=== PATIENT | male | born 1965 | race Caucasian/White ===

== ENCOUNTER 2022-03-12 11:09 | Emergency (ER) | payer SELFPAY ==
--- NOTE | 2022-03-12 11:42 | RAD REPORT ---
EXAM DESCRIPTION: RAD - Chest Single View - 03/12/2022 11:35 am CLINICAL HISTORY: CHEST PAIN COMPARISON: No comparisons FINDINGS: Lines: None. Lungs: No evidence of edema or pneumonia. Nonspecific basilar interstitial markings. Pleural: No significant pleural effusions or pneumothorax. Cardiac: Mild enlarged cardiac silhouette. Bones: No acute fractures. Other: IMPRESSION: No acute cardiopulmonary disease.
[2022-03-12 12:11] LABS: Absolute Lymphocytes (CBC) 1.8 K/uL (0.7-4.9); Hematocrit 45.2 % (39.6-49.0); Lymphocytes % 31.6 % (15.3-44.8); MCV 100.8 fL (80-100); MPV 9.2 fL (7.6-11.3); RBC Red Blood Cell Count 4.48 M/uL (4.33-5.43)
[2022-03-12] MEDS ORDERED: MORPHINE 4 MG/ML SYR ONE (12:34)
[2022-03-12] MEDS ORDERED: ONDANSETRON 4 MG/2 ML VIAL ONE (12:34)
[2022-03-12 13:15] LABS: Troponin High Sensitivity 9.2 pg/mL (<58.9)
--- NOTE | 2022-03-12 14:02 | RAD REPORT ---
EXAM DESCRIPTION: CT - Chest For Pe Angio - 03/12/2022 1:52 pm CLINICAL HISTORY: Chest pain COMPARISON: None. TECHNIQUE: Dynamically enhanced axial 3 mm thick images of the chest were obtained during administra tion of <100> mL Isovue 370 IV contrast. Coronal and oblique reconstruction images were generated and reviewed. Exam utilizes a protocol for optimal evaluation of pulmonary arterial tree. Maximum intensity projections 3D imaging was utilized All CT scans are performed using dose optimization technique as appropriate and may include automated exposure control or mA/KV adjustment according to patient size. FINDINGS: A pulmonary embolus is not seen. A thoracic aortic aneurysm is not noted. A pleural effusion is not seen. A pericardial effusion is not seen. A lung consolidation is not present. IMPRESSION: Negative for a pulmonary embolism.
[2022-03-12] MEDS ORDERED: NA CHLORIDE 0.9% 1,000 ML ONE (15:01)
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
[2022-03-12 17:20] VITALS: O2SAT 98
[2022-03-12 17:27] VITALS: BP 138/86
[2022-03-12 17:28] VITALS: TEMP 97.8
--- NOTE | 2022-03-16 08:06 | EKG ---
Test Date: 2022-03-12 Test Time: 11:28:39 Revenue Accounting Manager: JOSH MEASUREMENT RESULTS: Intervals: Rate: 112 [place]: QRSD: 108 QT: 352 QTc: 480 [place]: P: DE: QRS: -59 T: -38 INTERPRETIVE STATEMENTS: Atrial fibrillation with rapid ventricular response with premature ventricular or aberrantly conducted complexes Left anterior fascicular block Cannot rule out Anterior infarct, age undetermined Abnormal ECG No previous ECG available for comparison Electronically Signed On 03-16-22 07:56:34 CDT by Robin Aguayo
== END 2022-03-12 16:53 | disposition home or self-care (01) ==
LOC: ER 11:09
DX: R07.89 Other chest pain (principal); M25.511 Pain in right shoulder; E11.9 Type 2 diabetes mellitus without complications; I48.91 Unspecified atrial fibrillation; Z79.01 Long term (current) use of anticoagulants
CPT/HCPCS: 36415; 71045; 71275; 80048; 84484; 85025; 93005; 96361; 96374; 96375; 99285; J2405; J7030; Q9967

== ENCOUNTER 2025-01-30 09:03 | Emergency (ER) | payer BC, SELFPAY ==
--- OUTSIDE RECORDS SUMMARY | 2025-01-30 09:10 | XMS REPORT | Continuity of Care Document ---
Author Name Unknown Address [address] [facility] [address] [place] [address] Organization [facility] Address [address] [facility] [address] [place] [address] Care Team Providers Care Jackscrew Worker Name Role Phone Darcy Wilde Primary Care Physician Marc Singletary Attending Clinician Unavailable Dominic Mello Attending Clinician Unavailable Jovan Conde Attending Clinician Unavailable Marc Singletary Admitting Clinician Unavailable Payers Payer Name Policy Type Policy Number Effective Date Expirati on Date Source Allergies, Adverse Reactions, Alerts Allergy Name Allergy Type Status Severity Reaction(s) Onset Date Inactive Date Treating Clinician Comments Source No Known Allergie s DA Active U 03-05 00:00: 00 [facility] Family History Family Member Diagnosis Comments Start Date Stop Date Sour e Father Family Congenital Heart Disease? No [facility] Father Family Myocardial Infarction? Yes [facility] Father Family Stroke? No [facility] Father Family Diabetes? No [facility] Father Family Colorectal Cancer? No [facility] Father Family Breast Cancer ? No [facility] Father Family Coronary Shari ry Disease? Yes [facility] Mother Family Breast Cancer ? No [facility] Mother Family Coronary Shari ry Disease? No [facility] Mother Family Congenital Heart Disease? No [facility] Mother Family Myocardial Infarction? No [facility] Mother Family Stroke? No [facility] Mother Family Diabetes? No [facility] Family Colorectal Cancer? No [facility] Social History Social Habit Start Date Stop Date Quantity Comments Source Sex Ass[birth year] At 1965 00:00:00 1965 00:00:00 Male [facility] Smoking Status Start Date Stop Date Source Unknown if ever smoked [facility] Medications Ordered Medication Name Filled Medication Name Start Date Stop Date Current Medication? Ordering Clinician Indication Dosage Frequency Signature (SIG) Comments Components Source furosemide 80 mg tablet 5-07 00:00: 00 Yes mg [facility] atorvastati n 10 mg tablet -15 00:00: 00 Yes 1mg [facility] potassium chloride ER 20 mEq tablet,exte nded release -15 00:00: 00 Yes 2mEq [facility] carvedilol 6.25 mg tablet 4-10 00:00: 00 Yes mg [facility] spironolact one 25 mg tablet 4-10 00:00: 00 Yes mg [facility] furosemide 80 mg tablet 4-10 00:00: 00 Yes mg [facility] glimepiride 4 mg tablet 4-10 00:00: 00 Yes mg [facility] lisinopril 5 mg tablet 4-10 00:00: 00 Yes mg [facility] carvedilol 6.25 mg tablet 2-05 00:00: 00 Yes mg [facility] spironolact one 25 mg tablet 2-05 00:00: 00 Yes mg [facility] furosemide 80 mg tablet 1-02 00:00: 00 Yes mg [facility] lisinopril 5 mg tablet 1-02 00:00: 00 Yes mg [facility] glimepiride 4 mg tablet 2023-09 1-12 00:00: 00 Yes mg [facility] Dose Unknown 7- 00:00: 00 Yes [facility] Dose Unknown 03-12 00:00: 00 Yes [facility] Acetaminoph en (Tylenol Extra Strength) 500 MG Tab 03-08 15:58: 31 No 1000MG Every 6 Hours [facility] Acetaminoph en (Tylenol Extra Strength) 500 MG Tab 03-08 15:58: 31 No 1000MG Every 6 Hours [facility] ([place] Januvia 25 mg tablet 2-21 00:00: 00 Yes 1mg [facility] metformin 500 mg tablet 2-19 00:00: 00 Yes 1mg [facility] metformin 500 mg tablet 2-12 00:00: 00 Yes 1mg [facility] Vital Signs Vital Name Observation Time Observation Value Gerri richardson WEIGHT 2022-03-06 00:03:00 108.12319 kg HEIGHT 2022-03-06 00:03:00 185.42 cm Body Temperature 2022-03-09 07:55:00 97.8 [degF] [facility] ([place]) Heart Rate 2022-03-09 07:55:00 93 /min [facility] ([place]) Respiratory rate 2022-03-09 07:55:00 22 /min [facility] ([place]) Oxygen saturation by Pulse oximetry 2022-03-09 07:55:00 93 /min [facility] [place] [place] ([place]) BP Systolic 2022-03-09 07:55:00 165 mm[Hg] [facility] ([place]) BP Diastolic 2022-03-09 07:55:00 117 mm[Hg] [facility] ([place] Height 2022-03-06 00:03:00 185.42 cm [facility] ([place]) Weight 2022-03-06 00:03:00 108.77 kg [facility] ([place]) BMI (Body Mass Index) 2022-03-06 00:03:00 31.6 kg/m2 [facility] ([place]) WEIGHT 2022-03-06 00:03:00 108.17605 kg HEIGHT 2022-03-06 00:03:00 185.42 cm Body Temperature 2022-03-09 07:55:00 97.8 [degF] [facility] Heart Rate 2022-03-09 07:55:00 93 /min [facility] Respiratory rate 2022-03-09 07:55:00 22 /min [facility] Oxygen saturation by Pulse oximetry 2022-03-09 07:55:00 93 /min [facility] BP Systolic 2022-03-09 07:55:00 165 mm[Hg] [facility] BP Diastolic 2022-03-09 07:55:00 117 mm[Hg] [facility] Height 2022-03-06 00:03:[address] [facility] Weight 2022-03-06 00:03:[address] [facility] BMI (Body Mass Index) 2022-03-06 00:03:00 31.6 kg/m2 [facility] BP Systolic 2025-01-16 16:21:00 94 mm[Hg] Step hen F [facility] BP Diastolic 2025-01-16 16:21:00 60 mm[Hg] Silv[facility] phen F [facility] Weight Measured 2025-01-16 16:21:00 257.00 pounds [facility]am[facility] [place] Height Measured 2025-01-16 16:21:00 73.00 inches Familia F [facility] Body Temperature 2025-01-16 16:21:00 97.90 degrees Familia F [facility] Heart Rate 2025-01-16 16:21:00 96.00 /min Nancy en F [facility] Respiratory Rate 2025-01-16 16:21:00 18.00 /min Familia F [facility] Respiratory Rate 2024-12-20 08:39:00 19.00 /min Familia F [facility] BP Systolic 2024-12-20 08:39:00 110 mm[Hg] Step hen F [facility] BP Diastolic 2024-12-20 08:39:00 77 mm[Hg] [place] phen F [facility] Weight Measured 2024-12-20 08:39:00 257.00 pounds Familia F [facility] Height Measured 2024-12-20 08:39:00 73.00 inches Familia F [facility] Body Temperature 2024-12-20 08:39:00 97.20 degrees Familia F [facility] Heart Rate 2024-12-20 08:39:00 72.00 /min Nancy en F [facility] BP Systolic 2022-03-12 09:34:00 124 mm[Hg] Step hen F [facility] BP Diastolic 2022-03-12 09:34:00 89 mm[Hg] [place] phen F [facility] Weight Measured 2022-03-12 09:34:00 229.80 pounds Familia F [facility] Height Measured 2022-03-12 09:34:00 73.00 inches Familia F [facility] Body Temperature 2022-03-12 09:34:00 98.40 degrees Familia F [facility] Heart Rate 2022-03-12 09:34:00 98.00 /min Nancy en F [facility] Respiratory Rate 2022-03-12 09:34:00 Familia F [facility] BP Systolic 2021-11-02 15:11:00 Step hen F [facility] BP Diastolic 2021-11-02 15:11:00 [place] phen F [facility] Weight Measured 2021-11-02 15:11:00 240.00 pounds Familia F [facility] Height Measured 2021-11-02 15:11:00 73.00 inches Familia F [facility] Body Temperature 2021-11-02 15:11:00 Familia F [facility] Heart Rate 2021-11-02 15:11:00 Nancy en F [facility] Respiratory Rate 2021-11-02 15:11:00 Familia F [facility] BP Systolic 2021-10-24 10:43:00 138 mm[Hg] Step hen F [facility] BP Diastolic 2021-10-24 10:43:00 98 mm[Hg] [place] phen F [facility] Weight Measured 2021-10-24 10:43:00 240.20 pounds Familia F [facility] Height Measured 2021-10-24 10:43:00 73.00 inches Familia F [facility] Body Temperature 2021-10-24 10:43:00 98.30 degrees Familia F [facility] Heart Rate 2021-10-24 10:43:00 94.00 /min Nancy en F [facility] Respiratory Rate 2021-10-24 10:43:00 16.00 /min Familia F [facility] Procedures Procedure Date / Time Performed Performing Clinicia n Source XR Chest Pa & Lat STANDARD 2022-03-08 09:13:00 [facility] XR Chest Pa & Lat STANDARD 2022-03-08 09:13:00 [facility] ([place]) US Venous Doppler Rt Unilat 2022-03-06 18:59:00 [facility] 18[facility]59:00 [facility] ([place]) XR Chest 1 View Portable 2022-03-06 09:00:00 [facility] XR Chest 1 View Portable 2022-03-06 09:00:00 [facility] ([place]) CTA Angio Head W WO Con 2022-03-06 00:49:00 [facility] CTA Angio Neck W WO Con 2022-03-06 00:49:00 [facility] CTA Angio Head W WO Con 2022-03-06 00:49:00 [facility] ([place]) CTA Angio Neck W WO Con 2022-03-06 00:49:00 [facility] ([place]) CT Chest Abd Pelvis W Con 2022-03-05 18:55:[address] [facility] [address] Chest Abd Pelvis W Con 2022-03-05 18:55:00 [facility] ([place]) CT Upper Ext Rt WO Con 2022-03-05 18:01:[address] [facility] [address] Upper Ext Rt WO Con 2022-03-05 18:01:00 [facility] ([place]) CT Cervical Spine WO Con 2022-03-05 17:58:[address] [facility] [address] Brain WO Con 2022-03-05 17:58:00 [facility] CT Cervical Spine WO Con 2022-03-05 17:58:00 [facility] ([place]) CT Brain WO Con 2022-03-05 17:58:00 [facility] ([place]) EKG 12 Lead in Emergency Room 2022-03-05 17:12:00 [facility] EKG 12 Lead in Emergency Room 2022-03-05 17:12:00 [facility] ([place]) XR Chest 1 View Portable 2022-03-05 17:07:00 [facility] XR Chest 1 View Portable 2022-03-05 17:07:00 [facility] ([place]) XR Shoulder Rt 3 View STANDARD 2022-03-05 17:04:00 [facility] XR Shoulder Rt 3 View STANDARD 2022-03-05 17:04:00 [facility] ([place]) Encounters Start Date/Time End Date/Time Encounter Type Admission Type Attending [facility] Care Department Encounter ID Source 2022-03-05 23:23:[address] [facility] [id number] [facility] 2025-01-16 16:12:38 2025-01-16 16:12:[address] [facility] [id number] [facility] 2025-01-16 00:00:00 2025-01-16 00:00:00 Outpatient Visit SFA [id number] [facility] 2024-12-24 08:34:15 2024-12-24 08:34:[address] [facility] [id number] [facility] 2024-12-20 08:31:53 2024-12-20 08:31:[address] [facility] [id number] [facility] 2024-12-20 00:00:00 2024-12-20 00:00:00 Outpatient Visit SFA [id number] Familia Castillo [facility] 2022-03-06 00:43:00 2022-03-09 12:35:00 Discharged Inpatient [id number] [facility] Ctr-2SW/OBS ERVATION [id number] [facility] ([place] 2022-03-06 00:43:00 2022-03-09 12:35:00 Inpatient U Dominic Mello [facility] [id number] [facility] 2022-03-06 00:43:00 2022-03-09 12:35:00 Discharged Inpatient [id number] [facility] Ctr-2SW/OBS ERVATION [id number] [facility] 2022-03-05 16:54:00 2022-03-05 22:33:00 Emergency ER Jovan Conde [facility] [id number] [facility] 2022-03-05 16:54:00 2022-03-05 22:33:00 Departed Emergency [id number] [facility] [place] [id number] [facility] 2022-03-05 16:54:00 2022-03-05 16:54:00 Registered Emergency [id number] [facility] [place] [id number] [facility] ([place] Results Test Description Test Time Test Comments Results Result Co mments Source Fam[facility] HeadHEMOGLOBIN [id number] 00:00:00* Test Item Value Reference Range Interpretation Comme nts HEMOGLOBIN A1c (test code = 4548-4) 5.8 % [facility]am[facility] HeadLIPID [id number] 00:00:00* Test Item Value Reference Range Interpretation Comme nts CHOLESTEROL, TOTAL (test cod e = 2093-3) 151 mg/dL HDL CHOLESTEROL (test code = 2085-9) 28 mg/dL TRIGLYCERIDES (test code = 2571-8) 86 mg/dL LDL-CHOLESTEROL (test code = 32294-1) 105 mg/dL(calc) CHOL/HDLC RATIO (test code = 9830-1) 5.4 (calc) NON HDL CHOLESTEROL (test code = 31285-0) 123 mg/dL(calc) [facility] [id number] 06:06:00* Test Item Value Reference Range Interpretation Comme [facility] Bedside Glucose Testing (roly t code = ACU) 142 mg/dL 70-100 H Capillary blood glucose measurement by glucometer (mass/volume)2022-03-09 05:59:00* Test Item Value Reference Range Interpretation Comme [facility] Bedside Glucose (test code = 31226-7) 142 mg/dL 70-100 [facility] blood glucose measurement by glucometer (mass/volume)2022-03-09 05:59:00* Test Item Value Reference Range Interpretation Comme [facility] Bedside Glucose (test code = 65805-7) 142 mg/dL 70-100 [facility] ([place])Chemistry - BNP, HgbA1c, [id number] 04:42:00* Test Item Value Reference Range Interpretation Comme [facility] Chemistry - BNP, HgbA1c, PTH i (test code = RKVZ7VS) 9.0 % 4.0-6.0 H [id number] 04:40:00* Test Item Value Reference Range Interpretation Comme [facility] Hematology (test code = WBCT) 4.7 thou/uL 4.8-10.8 L Hematology (test code = RBCT) 4.02 mill/uL 4.70-6.10 L Hematology (test code = HGBT) 14.1 g/dL 14.0-18.0 N Hematology (test code = HCTT) 42.9 % 42.0-52.0 N Hematology (test code = MCV) 107.0 fL 78.0-98.0 H Hematology (test code = MCH) 35.1 pg 27.0-31.0 H Hematology (test code = MCHC) 32.9 g/dL 32.0-36.0 N Hematology (test code = RDW) 12.5 % 11.5-14.5 N Hematology (test code = PLTT) 87 thou/uL 130-400 L Hematology (test code = MPV) 9.4 fL 7.4-10.4 N Hematology (test code = %NEUT) 46.8 % 42.0-75.0 N Hematology (test code = %LYMPH) 38.7 % 21.0-51.0 N Hematology (test code = %MONO) 10.2 % 0.0-10.0 H Hematology (test code = %EOS) 3.3 % 0.0-10.0 N Hematology (test code = %BASO) 1.0 % 0.0-1.0 N Hematology (test code = NEUT#) 2.2 thou/uL 1.40-6.50 N Hematology (test code = LYMPH#) 1.8 thou/uL 1.20-3.40 N Hematology (test code = MONO#) 0.5 thou/uL 0.11-0.59 N Hematology (test code = EOS#) 0.2 thou/uL 0.0-0.7 N Hematology (test code = BASO#) 0.0 thou/uL 0.0-0.2 N Hemoglobin A1c [id number] 04:24:00* Test Item Value Reference Range Interpretation Comme [facility] Hemoglobin A1c (test code = 4548-4) 9.0 % 4.0-6.0 [facility] [#/volume[facility] in Blood by Automated count 2022-03-09 04:24:00* Test Item Value Reference Range Interpretation Comme [facility] White Blood Count (test code = 6690-2) 4.7 thou/uL 4.8-10.8 [facility] erythrocytes automated count (number/volume) 2022-03-09 04:24:00* Test Item Value Reference Range Interpretation Comme [facility] Red Blood Count (test code = 789-8) 4.02 mill/uL 4.70-6.10 [facility] hemoglobin measurement (mass/volume)2022-03-09 04:24:00* Test Item Value Reference Range Interpretation Comme [facility] Hemoglobin (test code = 718-7) 14.1 g/dL 14.0-18.0 [facility] eryth[facility] mean corpuscular volume 2022-03-09 04:24:00* Test Item Value Reference Range Interpretation Comme [facility] Mean Corpuscular Volume (roly t code = 787-2) 107.0 fL 78.0-98.0 [facility] mean corpuscular hemoglobin (mass per erythrocyte)2022-03-09 04:24:00* Test Item Value Reference Range Interpretation Comme [facility] Mean Corpuscular Hemoglobin (test code = 785-6) 35.1 pg 27.0-31.0 [facility] mean corpuscular hemoglobin concentration measurement (mass/[id number] 04:24:00* Test Item Value Reference Range Interpretation Comme [facility] Mean Corpuscular Hemoglobin Concent (test code = 786-4) 32.9 g/dL 32.0-36.0 [facility] distribution width ratio 2022-03-09 04:24:00* Test Item Value Reference Range Interpretation Comme [facility] Red Cell Distribution Width (test code = 788-0) 12.5 % 11.5-14.5 [facility] platelet count (count/volume) 2022-03-09 04:24:00* Test Item Value Reference Range Interpretation Comme [facility] Platelet Count (test code = 777-3) 87 thou/uL 130-400 [facility] platelet mean [id number] 04:24:00* Test Item Value Reference Range Interpretation Comme [facility] Mean Platelet Volume (test c ode = 95698-6) 9.4 fL 7.4-10.4 [facility] neutrophils/100 [id number] 04:24:00* Test Item Value Reference Range Interpretation Comme [facility] Neutrophils % (test code = 770-8) 46.8 % 42.0-75.0 [facility] leukocytes in Blood by Automated count 2022-03-09 04:24:00* Test Item Value Reference Range Interpretation Comme [facility] Lymphocytes % (test code = 736-9) 38.7 % 21.0-51.0 [facility] monocytes/100 [id number] 04:24:00* Test Item Value Reference Range Interpretation Comme [facility] Monocytes % (test code = 5905-5) 10.2 % 0.0-10.0 [facility] eosinophils/100 [id number] 04:24:00* Test Item Value Reference Range Interpretation Comme [facility] Eosinophils % (test code = 713-8) 3.3 % 0.0-10.0 [facility] basophils/100 [id number] 04:24:00* Test Item Value Reference Range Interpretation Comme [facility] Basophils % (test code = 706-2) 1.0 % 0.0-1.0 [facility] neutrophils automated count (number/volume) 2022-03-09 04:24:00* Test Item Value Reference Range Interpretation Comme [facility] Neutrophils # (test code = 751-8) 2.2 thou/uL 1.40-6.50 [facility]ymph[facility] [#/volume] in Blood by Automated count 2022-03-09 04:24:00* Test Item Value Reference Range Interpretation Comme [facility] Lymphocytes # (test code = 731-0) 1.8 thou/uL 1.20-3.40 [facility] monocytes automated count (number/volume) 2022-03-09 04:24:00* Test Item Value Reference Range Interpretation Comme [facility] Monocytes # (test code = 742-7) 0.5 thou/uL 0.11-0.59 [facility] eosinophils automated count (count/volume) 2022-03-09 04:24:00* Test Item Value Reference Range Interpretation Comme [facility] Eosinophils # (test code = 711-2) 0.2 thou/uL 0.0-0.7 [facility] basophil count (count/volume) 2022-03-09 04:24:00* Test Item Value Reference Range Interpretation Comme [facility] Basophils # (test code = 704-7) 0.0 thou/uL 0.0-0.2 [facility]emoglobin A1c [id number] 04:24:00* Test Item Value Reference Range Interpretation Comme [facility] Hemoglobin A1c (test code = 4548-4) 9.0 % 4.0-6.0 [facility])Leukocytes [#/volume] in Blood by Automated [id number] 04:24:00* Test Item Value Reference Range Interpretation Comme nts White Blood Count (test code = 6690-2) 4.7 thou/uL 4.8-10.8 [facility])Blood erythrocytes automated count (number/volume)2022-03-09 04:24:00* Test Item Value Reference Range Interpretation Comme nts Red Blood Count (test code = 789-8) 4.02 mill/uL 4.70-6.10 [facility] ([place])Blood hemoglobin measurement (mass/volume) 2022-03-09 04:24:00* Test Item Value Reference Range Interpretation Comme nts Hemoglobin (test code = 718-7) 14.1 g/dL 14.0-18.0 [facility])Automated erythrocyte mean corpuscular volume 2022-03-09 04:24:00* Test Item Value Reference Range Interpretation Comme nts Mean Corpuscular Volume (roly t code = 787-2) 107.0 fL 78.0-98.0 [facility])Automated erythrocyte mean corpuscular hemoglobin (mass per erythrocyte)2022-03-09 04:24:00* Test Item Value Reference Range Interpretation Comme nts Mean Corpuscular Hemoglobin (test code = 785-6) 35.1 pg 27.0-31.0 [facility])Automated erythrocyte mean corpuscular hemoglobin concentration measurement (mass/[id number] 04:24:00* Test Item Value Reference Range Interpretation Comme nts Mean Corpuscular Hemoglobin Concent (test code = 786-4) 32.9 g/dL 32.0-36.0 [facility])Automated erythrocyte distribution width ratio 2022-03-09 04:24:00* Test Item Value Reference Range Interpretation Comme nts Red Cell Distribution Width (test code = 788-0) 12.5 % 11.5-14.5 [facility])Automated blood platelet count (count/volume) 2022-03-09 04:24:00* Test Item Value Reference Range Interpretation Comme nts Platelet Count (test code = 777-3) 87 thou/uL 130-400 [facility])Automated blood platelet mean [id number] 04:24:00* Test Item Value Reference Range Interpretation Comme nts Mean Platelet Volume (test c ode = 64439-7) 9.4 fL 7.4-10.4 [facility])Automated blood neutrophils/100 leukocytes 2022-03-09 04:24:00* Test Item Value Reference Range Interpretation Comme nts Neutrophils % (test code = 770-8) 46.8 % 42.0-75.0 [facility])Lymphocytes/100 leukocytes in Blood by Automated [id number] 04:24:00* Test Item Value Reference Range Interpretation Comme nts Lymphocytes % (test code = 736-9) 38.7 % 21.0-51.0 [facility] ([place])Automated blood monocytes/100 leukocytes 2022-03-09 04:24:00* Test Item Value Reference Range Interpretation Comme nts Monocytes % (test code = 5905-5) 10.2 % 0.0-10.0 [facility])Automated blood eosinophils/100 leukocytes 2022-03-09 04:24:00* Test Item Value Reference Range Interpretation Comme nts Eosinophils % (test code = 713-8) 3.3 % 0.0-10.0 [facility] ([place])Automated blood basophils/100 leukocytes 2022-03-09 04:24:00* Test Item Value Reference Range Interpretation Comme nts Basophils % (test code = 706-2) 1.0 % 0.0-1.0 [facility] ([place])Blood neutrophils automated count (number/volume)2022-03-09 04:24:00* Test Item Value Reference Range Interpretation Comme nts Neutrophils # (test code = 751-8) 2.2 thou/uL 1.40-6.50 [facility] ([place])Lymphocytes [#/volume] in Blood by Automated [id number] 04:24:00* Test Item Value Reference Range Interpretation Comme [facility] Lymphocytes # (test code = 731-0) 1.8 thou/uL 1.20-3.40 [facility])Blood monocytes automated count (number/volume)2022-03-09 04:24:00* Test Item Value Reference Range Interpretation Comme nts Monocytes # (test code = 742-7) 0.5 thou/uL 0.11-0.59 [facility])Blood eosinophils automated count (count/volume)2022-03-09 04:24:00* Test Item Value Reference Range Interpretation Comme nts Eosinophils # (test code = 711-2) 0.2 thou/uL 0.0-0.7 [facility])Automated blood basophil count (count/volume) 2022-03-09 04:24:00* Test Item Value Reference Range Interpretation Comme nts Basophils # (test code = 704-7) 0.0 thou/uL 0.0-0.2 [facility])Bedside Glucose [id number] 21:00:00* Test Item Value Reference Range Interpretation Comme nts Bedside Glucose Testing (roly t code = ACU) 212 mg/dL 70-100 H Bedside Glucose [id number] 16:47:00* Test Item Value Reference Range Interpretation Comme nts Bedside Glucose Testing (roly t code = ACU) 165 mg/dL 70-100 H Bedside Glucose [id number] 11:11:00* Test Item Value Reference Range Interpretation Comme nts Bedside Glucose Testing (roly t code = ACU) 179 mg/dL 70-100 H [id number] 05:31:00* Test Item Value Reference Range Interpretation Comme nts Chemistry (test code = NA-T) 134 mmol/L 136-145 L Chemistry (test code = K-T) 3.6 mmol/L 3.5-5.1 N Chemistry (test code = CL) 100 mmol/L 98-107 N Chemistry (test code = CO2) 26 mmol/L 22-29 N Chemistry (test code = ANGP) 12 mmol/L 10-20 N Chemistry (test code = BUN) 17 mg/dL 8.4-25.7 N Chemistry (test code = CREATT) 0.65 mg/dL 0.7-1.3 L Chemistry (test code = EGFRMDRD) Greater than 90 Reference Range for Estimated GFR: Greater than 90 mL/min/1.73 m2NOTE:The MDRD equation has not been validated for use with theelderly (over 70 years of age), women, patientswith serious comorbid condition or persons with extremes ofbody size, muscle mass, or nutritional status.Reported eGFR is based on the IDMS-Traceable MDRD Studyequation. Effecti ve February The laboratory will implement the new CKD-EPI 2020 equation.In the interim, to calculate eGFR based on the CKD-EPI:quation , go to CKD-EPI Creatinine Equation (2020) [employer] Kid[employer] Foundation.https://w ww.kidney.org/conten t/vga-guo-pezwmogccw -equation-2020 Chemistry (test code = GLU-T) 139 mg/dL 70-105 H Chemistry (test code = CA) 8.3 mg/dL 7.8-10.44 N Remqnfojj6348-17-57 05:31:00* Test Item Value Reference Range Interpretation Comme nts Chemistry (test code = PHOS-T) 3.4 mg/dL 2.3-4.7 N Ctqliewsu3162-21-27 05:31:00* Test Item Value Reference Range Interpretation Comme nts Chemistry (test code = MG-T) 1.7 mg/dL 1.6-2.6 N Gzjjibizgm9625-82-25 05:09:00* Test Item Value Reference Range Interpretation Comme nts Hematology (test code = WBCT) 4.8 thou/uL 4.8-10.8 N Hematology (test code = RBCT) 3.98 mill/uL 4.70-6.10 L Hematology (test code = HGBT) 13.8 g/dL 14.0-18.0 L Hematology (test code = HCTT) 42.6 % 42.0-52.0 N Hematology (test code = MCV) 107.0 fL 78.0-98.0 H Hematology (test code = MCH) 34.7 pg 27.0-31.0 H Hematology (test code = MCHC) 32.4 g/dL 32.0-36.0 N Hematology (test code = RDW) 12.7 % 11.5-14.5 N Hematology (test code = PLTT) 83 thou/uL 130-400 L Hematology (test code = MPV) 9.9 fL 7.4-10.4 N Hematology (test code = %NEUT) 45.0 % 42.0-75.0 N Hematology (test code = %LYMPH) 38.5 % 21.0-51.0 N Hematology (test code = %MONO) 11.1 % 0.0-10.0 H Hematology (test code = %EOS) 4.2 % 0.0-10.0 N Hematology (test code = %BASO) 1.2 % 0.0-1.0 H Hematology (test code = NEUT#) 2.1 thou/uL 1.40-6.50 N Hematology (test code = LYMPH#) 1.8 thou/uL 1.20-3.40 N Hematology (test code = MONO#) 0.5 thou/uL 0.11-0.59 N Hematology (test code = EOS#) 0.2 thou/uL 0.0-0.7 N Hematology (test code = BASO#) 0.1 thou/uL 0.0-0.2 N Serum or plasma phosphate measurement (mass/volume)2022-03-08 04:33:00* Test Item Value Reference Range Interpretation Comme [facility] Phosphorus Level (test code = 2777-1) 3.4 mg/dL 2.3-4.7 [facility] or plasma magnesium measurement (mass/volume) 2022-03-08 04:33:00* Test Item Value Reference Range Interpretation Comme nts Magnesium Level (test code = 58693-5) 1.7 mg/dL 1.6-2.6 [facility] or plasma sodium measurement (moles/volume) 2022-03-08 04:33:00* Test Item Value Reference Range Interpretation Comme nts Sodium Level (test code = 2951-2) 134 mmol/L 136-145 [facility] or plasma potassium measurement (moles/volume) 2022-03-08 04:33:00* Test Item Value Reference Range Interpretation Comme [facility] Potassium Level (test code = 2823-3) 3.6 mmol/L 3.5-5.1 [facility] or plasma chloride measurement (moles/volume) 2022-03-08 04:33:00* Test Item Value Reference Range Interpretation Comme [facility] Chloride Level (test code = 2075-0) 100 mmol/L 98-107 [facility] or plasma carbon dioxide, total measurement (moles/volume)2022-03-08 04:33:00* Test Item Value Reference Range Interpretation Comme [facility] Carbon Dioxide Level (test c ode = 2027-9) 26 mmol/L 22-29 [facility] or plasma anion xtl6110-88-13 04:33:00* Test Item Value Reference Range Interpretation Comme [facility] Anion Gap (test code = 13438-6) 12 mmol/L 10-20 [facility] or plasma urea nitrogen measurement (mass/volume)2022-03-08 04:33:00* Test Item Value Reference Range Interpretation Comme [facility] Blood Urea Nitrogen (test co de = 3094-0) 17 mg/dL 8.4-25.7 [facility] or plasma creatinine measurement (mass/volume) 2022-03-08 04:33:00* Test Item Value Reference Range Interpretation Comme [facility] Creatinine (test code = 2160-0) 0.65 mg/dL 0.7-1.3 [facility]ucose [Mass/volume] in Serum or Ouxjnq2792-60-02 04:33:00* Test Item Value Reference Range Interpretation Comme [facility] Glucose Level (test code = 2345-7) 139 mg/dL 70-105 [facility] or plasma calcium measurement (mass/volume) 2022-03-08 04:33:00* Test Item Value Reference Range Interpretation Comme [facility] Calcium Level (test code = 04036-1) 8.3 mg/dL 7.8-10.44 [facility] or plasma sodium measurement (moles/volume) 2022-03-08 04:33:00* Test Item Value Reference Range Interpretation Comme [facility] Sodium Level (test code = 2951-2) 134 mmol/L 136-145 [facility])Serum or plasma potassium measurement (moles/volume)2022-03-08 04:33:00* Test Item Value Reference Range Interpretation Comme [facility] Potassium Level (test code = 2823-3) 3.6 mmol/L 3.5-5.1 [facility])Serum or plasma chloride measurement (moles/volume)2022-03-08 04:33:00* Test Item Value Reference Range Interpretation Comme [facility] Chloride Level (test code = 2075-0) 100 mmol/L 98-107 [facility])Serum or plasma carbon dioxide, total measurement (moles/volume)2022-03-08 04:33:00* Test Item Value Reference Range Interpretation Comme [facility] Carbon Dioxide Level (test c ode = 2027-9) 26 mmol/L 22-29 [facility])Serum or plasma anion [id number] 04:33:00* Test Item Value Reference Range Interpretation Comme [facility] Anion Gap (test code = 65249-8) 12 mmol/L 10-20 [facility])Serum or plasma urea nitrogen measurement (mass/volume)2022-03-08 04:33:00* Test Item Value Reference Range Interpretation Comme [facility] Blood Urea Nitrogen (test co de = 3094-0) 17 mg/dL 8.4-25.7 [facility]Serum or plasma creatinine measurement (mass/volume)2022-03-08 04:33:00* Test Item Value Reference Range Interpretation Comme [facility] Creatinine (test code = 2160-0) 0.65 mg/dL 0.7-1.3 [facility])Glucose [Mass/volume] in Serum or Plasma 2022-03-08 04:33:00* Test Item Value Reference Range Interpretation Comme [facility] Glucose Level (test code = 2345-7) 139 mg/dL 70-105 [facility])Serum or plasma calcium measurement (mass/volume)2022-03-08 04:33:00* Test Item Value Reference Range Interpretation Comme [facility] Calcium Level (test code = 93963-1) 8.3 mg/dL 7.8-10.44 [facility])Serum or plasma phosphate measurement (mass/volume)2022-03-08 04:33:00* Test Item Value Reference Range Interpretation Comme [facility] Phosphorus Level (test code = 2777-1) 3.4 mg/dL 2.3-4.7 [facility])Serum or plasma magnesium measurement (mass/volume)2022-03-08 04:33:00* Test Item Value Reference Range Interpretation Comme [facility] Magnesium Level (test code = 22205-9) 1.7 mg/dL 1.6-2.6 [facility])Bedside Glucose Nuefklh7610-46-86 21:08:00* Test Item Value Reference Range Interpretation Comme [facility] Bedside Glucose Testing (roly t code = ACU) 144 mg/dL 70-100 H Bedside Glucose Pvtewqb1956-84-15 15:33:00* Test Item Value Reference Range Interpretation Comme [facility] Bedside Glucose Testing (roly t code = ACU) 212 mg/dL 70-100 H Bedside Glucose Eskzynx1247-74-53 10:52:00* Test Item Value Reference Range Interpretation Comme [facility] Bedside Glucose Testing (roly t code = ACU) 162 mg/dL 70-100 H Fdibtfikn0056-08-55 05:22:00* Test Item Value Reference Range Interpretation Comme [facility] Chemistry (test code = NA-T) 139 mmol/L 136-145 N Chemistry (test code = K-T) 3.8 mmol/L 3.5-5.1 N Chemistry (test code = CL) 103 mmol/L 98-107 N Chemistry (test code = CO2) 28 mmol/L 22-29 N Chemistry (test code = ANGP) 12 mmol/L 10-20 N Chemistry (test code = BUN) 18 mg/dL 8.4-25.7 N Chemistry (test code = CREATT) 0.67 mg/dL 0.7-1.3 L Chemistry (test code = EGFRMDRD) Greater than 90 Reference Range for Estimated GFR: Greater than 90 mL/min/1.73 m2NOTE:The MDRD equation has not been validated for use with theelderly (over 70 years of age), women, patientswith serious comorbid condition or persons with extremes ofbody size, muscle mass, or nutritional status.Reported eGFR is based on the IDMS-Traceable MDRD Studyequation. Effecti ve February The laboratory will implement the new CKD-EPI 2020 equation.In the interim, to calculate eGFR based on the CKD-EPI:quation , go to CKD-EPI Creatinine Equation (2020) [employer] Kid[employer] Foundation.https://w ww.[email or web address]/conten t/cpg-epw-dcilfvwtoi -equation-2020 Chemistry (test code = GLU-T) 185 mg/dL 70-105 H Chemistry (test code = CA) 8.4 mg/dL 7.8-10.44 N Fuocxvsao8294-30-30 05:22:00* Test Item Value Reference Range Interpretation Comme nts Chemistry (test code = PHOS-T) 2.9 mg/dL 2.3-4.7 N Nzjexzecfc4380-60-24 05:11:00* Test Item Value Reference Range Interpretation Comme nts Hematology (test code = WBCT) 4.2 thou/uL 4.8-10.8 L Hematology (test code = RBCT) 4.16 mill/uL 4.70-6.10 L Hematology (test code = HGBT) 14.3 g/dL 14.0-18.0 N Hematology (test code = HCTT) 44.7 % 42.0-52.0 N Hematology (test code = MCV) 108.0 fL 78.0-98.0 H Hematology (test code = MCH) 34.4 pg 27.0-31.0 H Hematology (test code = MCHC) 32.0 g/dL 32.0-36.0 N Hematology (test code = RDW) 12.9 % 11.5-14.5 N Hematology (test code = PLTT) 88 thou/uL 130-400 L Hematology (test code = MPV) 9.7 fL 7.4-10.4 N Hematology (test code = %NEUT) 47.8 % 42.0-75.0 N Hematology (test code = %LYMPH) 36.3 % 21.0-51.0 N Hematology (test code = %MONO) 11.3 % 0.0-10.0 H Hematology (test code = %EOS) 3.0 % 0.0-10.0 N Hematology (test code = %BASO) 1.6 % 0.0-1.0 H Hematology (test code = NEUT#) 2.0 thou/uL 1.40-6.50 N Hematology (test code = LYMPH#) 1.5 thou/uL 1.20-3.40 N Hematology (test code = MONO#) 0.5 thou/uL 0.11-0.59 N Hematology (test code = EOS#) 0.1 thou/uL 0.0-0.7 N Hematology (test code = BASO#) 0.1 thou/uL 0.0-0.2 N Manual blood segmented neutrophils/100 uobcuarbrw0376-53-41 04:38:00* Test Item Value Reference Range Interpretation Comme nts Neutrophils % (Manual) (test code = 769-0) Not Performed [facility] blood segmented neutrophils/100 leukocytes 2022-03-07 04:38:00* Test Item Value Reference Range Interpretation Comme nts Neutrophils % (Manual) (test code = 769-0) Not Performed [facility]Bedside Glucose Llyqddo6164-26-70 20:18:00* Test Item Value Reference Range Interpretation Comme nts Bedside Glucose Testing (roly t code = ACU) 241 mg/dL 70-100 H Bedside Glucose Txipdyo5018-58-91 11:34:00* Test Item Value Reference Range Interpretation Comme nts Bedside Glucose Testing (roly t code = ACU) 164 mg/dL 70-100 H Esriyafvh2618-48-80 10:54:00* Test Item Value Reference Range Interpretation Comme nts Chemistry (test code = TROPI-R) 0.010 ng/mL < 0.028 Reference Range 0.00 - 0.028 ng/mL Negative 0.029 - 0.29 ng/mL Indeterminate Greater or Equal to 0.3 ng/mL Strongly suggests [place] Mkvqdyzkg8287-08-53 05:45:00* Test Item Value Reference Range Interpretation Comme nts Chemistry (test code = NA-T) 138 mmol/L 136-145 N Chemistry (test code = K-T) 3.4 mmol/L 3.5-5.1 L Chemistry (test code = CL) 105 mmol/L 98-107 N Chemistry (test code = CO2) 23 mmol/L 22-29 N Chemistry (test code = ANGP) 13 mmol/L 10-20 N Chemistry (test code = BUN) 13 mg/dL 8.4-25.7 N Chemistry (test code = CREATT) 0.58 mg/dL 0.7-1.3 L Chemistry (test code = EGFRMDRD) Greater than 90 Reference Range for Estimated GFR: Greater than 90 mL/min/1.73 m2NOTE:The MDRD equation has not been validated for use with theelderly (over 70 years of age), women, patientswith serious comorbid condition or persons with extremes ofbody size, muscle mass, or nutritional status.Reported eGFR is based on the IDMS-Traceable MDRD Studyequation. Effecti ve February The laboratory will implement the new CKD-EPI 2020 equation.In the interim, to calculate eGFR based on the CKD-EPI:quation , go to CKD-EPI Creatinine Equation (2020) National Kid[employer] Foundation.https://w ww.kidney.org/conten t/sik-egf-stjtgolpaf -equation-2020 Chemistry (test code = GLU-T) 182 mg/dL 70-105 H Chemistry (test code = CA) 8.3 mg/dL 7.8-10.44 N Wruhlxgua0804-08-37 05:45:00* Test Item Value Reference Range Interpretation Comme nts Chemistry (test code = MG-T) 1.5 mg/dL 1.6-2.6 L Nsvwvlsoqx7308-93-12 05:43:00* Test Item Value Reference Range Interpretation Comme nts Hematology (test code = WBCT) 5.1 thou/uL 4.8-10.8 N Hematology (test code = RBCT) 3.89 mill/uL 4.70-6.10 L Hematology (test code = HGBT) 13.6 g/dL 14.0-18.0 L Hematology (test code = HCTT) 40.7 % 42.0-52.0 L Hematology (test code = MCV) 105.0 fL 78.0-98.0 H Hematology (test code = MCH) 35.1 pg 27.0-31.0 H Hematology (test code = MCHC) 33.5 g/dL 32.0-36.0 N Hematology (test code = RDW) 12.8 % 11.5-14.5 N Hematology (test code = PLTT) 95 thou/uL 130-400 L Hematology (test code = MPV) 9.2 fL 7.4-10.4 N Hematology (test code = %NEUT) 48.9 % 42.0-75.0 N Hematology (test code = %LYMPH) 35.1 % 21.0-51.0 N Hematology (test code = %MONO) 14.0 % 0.0-10.0 H Hematology (test code = %EOS) 1.0 % 0.0-10.0 N Hematology (test code = %BASO) 0.9 % 0.0-1.0 N Hematology (test code = NEUT#) 2.5 thou/uL 1.40-6.50 N Hematology (test code = LYMPH#) 1.8 thou/uL 1.20-3.40 N Hematology (test code = MONO#) 0.7 thou/uL 0.11-0.59 H Hematology (test code = EOS#) 0.1 thou/uL 0.0-0.7 N Hematology (test code = BASO#) 0.0 thou/uL 0.0-0.2 N Hematology (test code = MA) SLIGHT = 6-15 cells (100X) See_Comment [Automated message] The system which generated this result transmitted reference range: 0-5/hpf. The reference range was not used to interpret this result as normal/abnormal. Hematology (test code = PCOMMENT) Appears Decreased A Blood macrocytes detection by light zhitutonrd2362-81-01 04:47:00* Test Item Value Reference Range Interpretation Comme nts Macrocytosis (test code = 738-5) SLIGHT = 6-15 cells (100X) [facility] HealthPlatelet adequacy [Presence] in Blood by Light ltpbguuieu1107-97-53 04:47:00* Test Item Value Reference Range Interpretation Comme [facility] Platelet Morphology Comment (test code = 9317-9) Appears Decreased [facility] HealthBlood macrocytes detection by light microscopy 2022-03-06 04:47:00* Test Item Value Reference Range Interpretation Comme nts Macrocytosis (test code = 738-5) SLIGHT = 6-15 cells (100X) [facility] ([place])Platelet adequacy [Presence] in Blood by Light konrraoevj1029-18-40 04:47:00* Test Item Value Reference Range Interpretation Comme nts Platelet Morphology Comment (test code = 9317-9) Appears Decreased [facility])Mmquffini7721-39-15 02:18:00* Test Item Value Reference Range Interpretation Comme [facility] Chemistry (test code = TROPI-R) Less than 0.010 ng/mL < 0.028 * Reference Range 0.00 - 0.028 ng/mL Negative 0.029 - 0.29 ng/mL Indeterminate Greater or Equal to 0.3 ng/mL Strongly suggests [place] Bedside Glucose Rdvzpcc5502-97-58 00:17:00* Test Item Value Reference Range Interpretation Comme nts Bedside Glucose Testing (roly t code = ACU) 229 mg/dL 70-100 H Molecular Testing MM3095-20-20 22:10:00* Test Item Value Reference Range Interpretation Comme nts Molecular Testing MM (test code = [id number]) Not Detected NotDetected Performance of t he Cepheid SARS-CoV-2 has only beenestablished in nasopharyngeal swab specimens. This testcannot rule out diseases caused by other bacterial or viralpathogens.Cepheid has been provided an FDA EUA that will be effectiveuntil the declaration that circumstances exist justifyingthe authorization of the emergency use of in vitrodiagnostic tests for detection and/or diagnosis ofCOVID-19 is terminated under Section 564(b)(2) of the Act orthe EUA is revoked under Section 564(g) of the Act. Resident in [facility]regate Care Setting: NoEmployed in Healthcare: NoFirst Test: NoHospitalized: NoICU:NoDate of Symptom Onset: [id number]: NoReason for Testing: Admission ScreeningSource: Nasopharyngeal SwabSymptomatic as defined by [facility]: [id number] 21:04:00* Test Item Value Reference Range Interpretation Comme nts SARS-CoV-2 Rapid RNA (RT-PCR)(LAB) (test code = 76689-9) Not Detected NotDetected [facility]94500-62022-06-24 21:04:00* Test Item Value Reference Range Interpretation Comme nts SARS-CoV-2 Rapid RNA (RT-PCR)(LAB) (test code = 16658-8) Not Detected NotDetected [facility] ([place])Dcdlelodzf3089-33-18 18:54:00* Test Item Value Reference Range Interpretation Comme nts Toxicology (test code = MARK) Not Detected NotDetected Toxicology (test code = PCP) Not Detected NotDetected Toxicology (test code = COCN) Not Detected NotDetected Toxicology (test code = METHAMPU) Not Detected NotDetected Toxicology (test code = OPIA) Not Detected NotDetected Toxicology (test code = AMPHU) Not Detected NotDetected Toxicology (test code = DEE) Not Detected NotDetected Toxicology (test code = TRICY) Not Detected NotDetected Toxicology (test code = MTD) Not Detected NotDetected Toxicology (test code = MURPHY) Not Detected NotDetected Toxicology (test code = OXYCOD) Not Detected NotDetected Toxicology (test code = PPX) Not Detected NotDetected Toxicology (test code = MTCUTOFF) See_Comment The MedT[employer] Profile-V Panel for Qualitative Drugs ofAbuse assays are for presumptive screening testing only.The drug class and detection limits are as follows:Drug Class Detection LimitAmphetamine 500 ng/mL*Barbiturates 200 ng/mLBenzodiazepines 150 ng/mL*Cocaine 150 ng/mL*Methamphetamine 500 ng/mL*Methadone 200 ng/mL*Opiates 100 ng/mL*Oxycodone 100 ng/mLPCP 25 ng/mLPropoxyphene 300 ng/mLTricyclic Antidepressants 300 ng/mLCannabinoids (THC) 50 ng/mLTests which yield a presumptive positive result must betested using a more specific alternate chemical method inorder to obtain a confirmed analytical result. Additionalconfirmation and identification may be ordered on a routinebasis, if desired. Presumptive positive urines are held fortwo weeks. [Automated message] The system which generated this result transmitted reference range: . The reference range was not used to interpret this result as normal/abnormal. Urine Source: Urine QtwszdQfgkyrbmlu0073-13-97 18:47:00* Test Item Value Reference Range Interpretation Comme nts Urinalysis (test code = UACLR) Nilda Yellow Urinalysis (test code = UACLY) Clear Clear Urinalysis (test code = SPGR) 1.038 1.002-1.036 H Urinalysis (test code = KINGSTON) 5.5 5.0-9.0 N Urinalysis (test code = UALEU) Negative Negative Urinalysis (test code = UANIT) Negative Negative Urinalysis (test code = PROUADIP) Negative mg/dL Neg-Trace Urinalysis (test code = GLUCU) 500 mg/dL Negative A Urinalysis (test code = KETU) Negative mg/dL Negative Urinalysis (test code = UAUROB) 1.0 mg/dL Less than 2 Urinalysis (test code = UABIL) Negative Negative Urinalysis (test code = UABLD) Negative Negative Urine Source: Urine VoidedScreening urine cannabinoids detection using 50 ng/mL desmhx7097-30-76 18:26:00* Test Item Value Reference Range Interpretation Comme [facility] Urine Cannabinoids Screen (t est code = 67894-2) Not Detected NotDetected [facility] phencyclidine detection by screening method >25 ng/rc0640-26-59 18:26:00* Test Item Value Reference Range Interpretation Comme [facility] Urine Phencyclidine Screen ( test code = 49642-1) Not Detected NotDetected [facility] cocaine detection by screening vdvccb9906-24-65 18:26:00* Test Item Value Reference Range Interpretation Comme [facility] Urine Cocaine Metabolite Scr een (test code = 50380-7) Not Detected NotDetected [facility] methamphetamine detection by screening method 2022-03-05 18:26:00* Test Item Value Reference Range Interpretation Comme [facility] Urine Methamphetamines Scree n (test code = 91906-9) Not Detected NotDetected [facility] opiates detection by screening ikomap1624-65-11 18:26:00* Test Item Value Reference Range Interpretation Comme [facility] Urine Opiates Screen (test c ode = 27633-6) Not Detected NotDetected [facility] HealthAmphetamines [Presence] in Urine by Screen method >500 ng/hG6305-90-36 18:26:00* Test Item Value Reference Range Interpretation Comme [facility] Urine Amphetamines Screen (t est code = 23134-5) Not Detected NotDetected [facility] benzodiazepines detection by screening method 2022-03-05 18:26:00* Test Item Value Reference Range Interpretation Comme [facility] Urine Benzodiazepines Screen (test code = 68635-0) Not Detected [facility] tricyclic antidepressants detection 2022-03-05 18:26:00* Test Item Value Reference Range Interpretation Comme [facility] Ur Tricyclic Antidepressants Screen (test code = 77566-2) Not Detected NotDetected [facility] methadone detection by screening method 2022-03-05 18:26:00* Test Item Value Reference Range Interpretation Comme [facility] Urine Methadone Screen (test code = 20049-3) Not Detected NotDetected [facility] HealthBarbiturates [Presence] in Urine by Screen method >200 ng/dO9308-32-24 18:26:00* Test Item Value Reference Range Interpretation Comme [facility] Urine Barbiturates Screen (t est code = 17470-4) Not Detected NotDetected [facility] oxycodone screening qwfo2235-42-97 18:26:00* Test Item Value Reference Range Interpretation Comme [facility] Urine Oxycodone Screen (test code = 55283-9) Not Detected NotDetected [facility] HealthPropoxyphene + Norpropoxyphene [Presence] in Urine by Screen kiiuwp7590-42-56 18:26:00* Test Item Value Reference Range Interpretation Comme [facility] Urine Propoxyphene Screen (t est code = 51816-3) Not Detected NotDetected [facility]Do Not Iio3782-85-97 18:26:00* Test Item Value Reference Range Interpretation Comme [facility] Drug Screen Comment (test code = LOINC) [facility] itamc0939-02-50 18:26:00* Test Item Value Reference Range Interpretation Comme [facility] Urine Color (test code = 5778-6) Nilda Yellow [facility] rqwozbw7624-46-91 18:26:00* Test Item Value Reference Range Interpretation Comme [facility] Urine Clarity (test code = 60102-7) Clear Clear [facility] specific gravity measurement by refractometry 2022-03-05 18:26:00* Test Item Value Reference Range Interpretation Comme [facility] Urine Specific Alliance (test code = 5810-7) 1.038 1.002-1.036 [facility] pH measurement by automated test pauiy1577-15-25 18:26:00* Test Item Value Reference Range Interpretation Comme [facility] Urine pH (test code = 43016-2) 5.5 5.0-9.0 [facility] leukocyte esterase detection by automated test plliq8200-13-07 18:26:00* Test Item Value Reference Range Interpretation Comme [facility] Urine Leukocyte Esterase (te st code = 75814-0) Negative Negative [facility] HealthNitrite [Presence] in Urine by Test cprcu6792-12-14 18:26:00* Test Item Value Reference Range Interpretation Comme [facility] Urine Nitrite (test code = 5802-4) Negative Negative [facility] protein measurement by automated test strip (mass/volume)2022-03-05 18:26:00* Test Item Value Reference Range Interpretation Comme [facility] Urine Protein (test code = 69885-0) Negative mg/dL Neg-Trace [facility] glucose measurement by test strip (mass/volume) 2022-03-05 18:26:00* Test Item Value Reference Range Interpretation Comme [facility] Urine Glucose (UA) (test cod e = 5792-7) 500 mg/dL Negative [facility] ketones measurement by automated test strip (mass/volume)2022-03-05 18:26:00* Test Item Value Reference Range Interpretation Comme [facility] Urine Ketones (test code = 49491-8) Negative mg/dL Negative [facility] urobilinogen measurement (units/volume) by test [id number] 18:26:00* Test Item Value Reference Range Interpretation Comme [facility] Urine Urobilinogen (test cod e = 49295-2) 1.0 mg/dL Less than 2 [facility] total bilirubin detection by automated test [id number] 18:26:00* Test Item Value Reference Range Interpretation Comme [facility] Urine Bilirubin (test code = 70961-6) Negative Negative [facility] hemoglobin detection by automated test strip 2022-03-05 18:26:00* Test Item Value Reference Range Interpretation Comme [facility] Urine Blood (test code = 62364-7) [facility] using 50 ng/mL gqqdvm5134-27-05 18:26:00* Test Item Value Reference Range Interpretation Comme [facility] Urine Cannabinoids Screen (t est code = 92580-7) Not Detected NotDetected [facility])Urine phencyclidine detection by screening method >25 ng/bf2487-72-62 18:26:00* Test Item Value Reference Range Interpretation Comme [facility] Urine Phencyclidine Screen ( test code = 61599-7) Not Detected NotDetected [facility])Urine cocaine detection by screening method 2022-03-05 18:26:00* Test Item Value Reference Range Interpretation Comme [facility] Urine Cocaine Metabolite Scr een (test code = 84652-9) Not Detected NotDetected [facility])Urine methamphetamine detection by screening [id number] 18:26:00* Test Item Value Reference Range Interpretation Comme [facility] Urine Methamphetamines Scree n (test code = 14528-1) Not Detected NotDetected [facility])Urine opiates detection by screening method 2022-03-05 18:26:00* Test Item Value Reference Range Interpretation Comme [facility] Urine Opiates Screen (test c ode = 27019-2) Not Detected NotDetected [facility])Amphetamines [Presence] in Urine by Screen method >500 ng/[id number] 18:26:00* Test Item Value Reference Range Interpretation Comme [facility] Urine Amphetamines Screen (t est code = 21048-9) Not Detected NotDetected [facility])Urine benzodiazepines detection by screening taqmfn2056-62-13 18:26:00* Test Item Value Reference Range Interpretation Comme [facility] Urine Benzodiazepines Screen (test code = 30319-2) Not Detected NotDetected [facility]Screening urine tricyclic antidepressants [id number] 18:26:00* Test Item Value Reference Range Interpretation Comme [facility] Ur Tricyclic Antidepressants Screen (test code = 11489-4) Not Detected NotDetected [facility])Urine methadone detection by screening method 2022-03-05 18:26:00* Test Item Value Reference Range Interpretation Comme [facility] Urine Methadone Screen (test code = 99624-5) Not Detected NotDetected [facility])Barbiturates [Presence] in Urine by Screen method >200 ng/hI5694-36-50 18:26:00* Test Item Value Reference Range Interpretation Comme [facility] Urine Barbiturates Screen (t est code = 45655-6) Not Detected NotDetected [facility]Urine oxycodone screening [id number] 18:26:00* Test Item Value Reference Range Interpretation Comme [facility] Urine Oxycodone Screen (test code = 77951-1) Not Detected NotDetected [facility]Propoxyphene + Norpropoxyphene [Presence] in Urine by Screen [id number] 18:26:00* Test Item Value Reference Range Interpretation Comme nts Urine Propoxyphene Screen (t est code = 06511-9) Not Detected NotDetected [facility]Do Not [id number] 18:26:00* Test Item Value Reference Range Interpretation Comme nts Drug Screen Comment (test code = LOINC) [facility]Urine [id number] 18:26:00* Test Item Value Reference Range Interpretation Comme nts Urine Color (test code = 5778-6) Nilda Yellow [facility]Urine hnhdmue0290-07-93 18:26:00* Test Item Value Reference Range Interpretation Comme nts Urine Clarity (test code = 50818-8) Clear Clear [facility]Urine specific gravity measurement by jegejxjwufhrf4632-64-25 18:26:00* Test Item Value Reference Range Interpretation Comme nts Urine Specific Alliance (test code = 5810-7) 1.038 1.002-1.036 [facility]Urine pH measurement by automated test strip 2022-03-05 18:26:00* Test Item Value Reference Range Interpretation Comme nts Urine pH (test code = 51370-3) 5.5 5.0-9.0 [facility]Urine leukocyte esterase detection by automated test [id number] 18:26:00* Test Item Value Reference Range Interpretation Comme nts Urine Leukocyte Esterase (te st code = 54009-4) Negative Negative [facility]Nitrite [Presence] in Urine by Test strip 2022-03-05 18:26:00* Test Item Value Reference Range Interpretation Comme nts Urine Nitrite (test code = 5802-4) Negative Negative [facility]Urine protein measurement by automated test strip (mass/volume)2022-03-05 18:26:00* Test Item Value Reference Range Interpretation Comme nts Urine Protein (test code = 44712-7) Negative mg/dL Neg-Trace [facility]Urine glucose measurement by test strip (mass/volume)2022-03-05 18:26:00* Test Item Value Reference Range Interpretation Comme [facility] Urine Glucose (UA) (test cod e = 5792-7) 500 mg/dL Negative [facility]Urine ketones measurement by automated test strip (mass/volume)2022-03-05 18:26:00* Test Item Value Reference Range Interpretation Comme [facility] Urine Ketones (test code = 74991-4) Negative mg/dL Negative [facility]Urine urobilinogen measurement (units/volume) by test [id number] 18:26:00* Test Item Value Reference Range Interpretation Comme [facility] Urine Urobilinogen (test cod e = 68797-0) 1.0 mg/dL Less than 2 [facility]Urine total bilirubin detection by automated test [id number] 18:26:00* Test Item Value Reference Range Interpretation Comme [facility] Urine Bilirubin (test code = 66370-8) Negative Negative [facility]Urine hemoglobin detection by automated test gdhjz1411-42-67 18:26:00* Test Item Value Reference Range Interpretation Comme [facility] Urine Blood (test code = 41299-8) Negative Negative [facility]Ltgjlpikqb5620-42-51 18:15:00* Test Item Value Reference Range Interpretation Comme [facility] Hematology (test code = WBCT) 4.7 thou/uL 4.8-10.8 L Hematology (test code = RBCT) 4.91 mill/uL 4.70-6.10 N Hematology (test code = HGBT) 16.0 g/dL 14.0-18.0 N Hematology (test code = HCTT) 51.4 % 42.0-52.0 N Hematology (test code = MCV) 105.0 fL 78.0-98.0 H Hematology (test code = MCH) 32.7 pg 27.0-31.0 H Hematology (test code = MCHC) 31.2 g/dL 32.0-36.0 L Hematology (test code = RDW) 13.0 % 11.5-14.5 N Hematology (test code = PLTT) 115 thou/uL 130-400 L Hematology (test code = MPV) 10.7 fL 7.4-10.4 H Hematology (test code = NE) 54 % 42-75 N Hematology (test code = LY) 38 % 21-51 N Hematology (test code = MO) 7 % 0-10 N Hematology (test code = EO) 1 % 0-10 N Hematology (test code = AN) SLIGHT = 6-15 cells (100X) See_Comment [Automated message] The system which generated this result transmitted reference range: 0-5/hpf. The reference range was not used to interpret this result as normal/abnormal. Hematology (test code = MA) SLIGHT = 6-15 cells (100X) See_Comment [Automated message] The system which generated this result transmitted reference range: 0-5/hpf. The reference range was not used to interpret this result as normal/abnormal. Hematology (test code = POLY) SLIGHT = 2-3 cells (100X) See_Comment [Automated message] The system which generated this result transmitted reference range: 0-2/hpf. The reference range was not used to interpret this result as normal/abnormal. Hematology (test code = SMU) SLIGHT Hematology (test code = LG PLATELETS) SLIGHT Hematology (test code = PCOMMENT) Appears Decreased A Nljklwjiw6337-70-53 17:47:00* Test Item Value Reference Range Interpretation Comme nts Chemistry (test code = TROPI-R) 0.013 ng/mL < 0.028 Reference Range 0.00 - 0.028 ng/mL Negative 0.029 - 0.29 ng/mL Indeterminate Greater or Equal to 0.3 ng/mL Strongly suggests GA Xnrieguia3359-50-88 17:46:00* Test Item Value Reference Range Interpretation Comme nts Chemistry (test code = NA-T) 140 mmol/L 136-145 N Chemistry (test code = K-T) 3.6 mmol/L 3.5-5.1 N Chemistry (test code = CL) 105 mmol/L 98-107 N Chemistry (test code = CO2) 19 mmol/L 22-29 L Chemistry (test code = ANGP) 20 mmol/L 10-20 N Chemistry (test code = BUN) 12 mg/dL 8.4-25.7 N Chemistry (test code = CREATT) 0.73 mg/dL 0.7-1.3 N Chemistry (test code = EGFRMDRD) Greater than 90 Reference Range for Estimated GFR: Greater than 90 mL/min/1.73 m2NOTE:The MDRD equation has not been validated for use with theelderly (over 70 years of age), women, patientswith serious comorbid condition or persons with extremes ofbody size, muscle mass, or nutritional status.Reported eGFR is based on the IDMS-Traceable MDRD Studyequation. Effecti ve February The laboratory will implement the new CKD-EPI 2020 equation.In the interim, to calculate eGFR based on the CKD-EPI:quation , go to CKD-EPI Creatinine Equation (2020) [employer].https://w ww.kidney.org/conten t/ipe-ccz-foxxnzywpy -equation-2020 Chemistry (test code = GLU-T) 270 mg/dL 70-105 H Chemistry (test code = CA) 8.9 mg/dL 7.8-10.44 N Chemistry (test code = TBILI-T) 1.0 mg/dL 0.2-1.2 N Chemistry (test code = TP) 8.6 g/dL 6.0-8.3 H Chemistry (test code = ALB) 3.5 g/dL 3.5-5.0 N Chemistry (test code = GLOB) 5.1 g/dL 2.4-3.5 H Chemistry (test code = AG) 0.7 g/dL 1.2-2.2 L Chemistry (test code = ALP) 89 U/L 40-110 N Chemistry (test code = AST) 152 U/L 5-34 H Chemistry (test code = ALT) 161 U/L 8-55 H [id number] 17:46:00* Test Item Value Reference Range Interpretation Comme nts Chemistry (test code = CK) 120 U/L 30-200 N Vdqyeupmx0927-26-06 17:46:00* Test Item Value Reference Range Interpretation Comme [facility] Chemistry (test code = ETOH) 258 mg/dL Less than 10 H The pharmacologi karie response to blood alcohol levels mayvary from individual to individual. Negative: Less than 10 mg/dL Toxic: 50 - 100 mg/dL Depression of DEDICATED DRIVER: Greater than 100 mg/dL Fatalities reported: Greater than 400 mg/dL Serum or plasma ethanol measurement (mass/volume)2022-03-05 17:25:00* Test Item Value Reference Range Interpretation Comme [facility] Plasma Alcohol (test code = 5643-2) 258 mg/dL Less than 1 0 [facility] [#/volume] in Blood by Automated count 2022-03-05 17:25:00* Test Item [facility] Count (test code = 6690-2) 4.7 thou/uL 4.8-10.8 [facility] erythrocytes automated count (number/volume) 2022-03-05 17:25:00* Test Item Value Reference Range Interpretation Comme [facility] Red Blood Count (test code = 789-8) 4.91 mill/uL 4.70-6.10 [facility] hemoglobin measurement (mass/volume)2022-03-05 17:25:00* Test Item Value Reference [facility]ation [facility] Hemoglobin (test code = 718-7) 16.0 g/dL 14.0-18.0 [facility] erythrocyte mean corpuscular volume 2022-03-05 17:25:00* Test Item Value Reference [facility]ation [facility] Mean Corpuscular Volume (roly t code = 787-2) 105.0 fL 78.0-98.0 [facility] erythrocyte mean corpuscular hemoglobin (mass per erythrocyte)2022-03-05 17:25:00* Test Item Value Reference [facility]ation [facility] Mean Corpuscular Hemoglobin (test code = 785-6) 32.7 pg 27.0-31.0 [facility] erythrocyte mean corpuscular hemoglobin concentration measurement (mass/[id number] 17:25:00* Test Item Value Reference Range Interpretation Comme [facility] Mean Corpuscular Hemoglobin Concent (test code = 786-4) 31.2 g/dL 32.0-36.0 [facility] width ratio 2022-03-05 17:25:00* Test Item Value Reference Range Interpretation Comme [facility] Red Cell Distribution Width (test code = 788-0) 13.0 % 11.5-14.5 [facility] blood platelet count (count/volume) 2022-03-05 17:25:00* Test Item Value Reference Range Interpretation Comme nts Platelet Count (test code = 777-3) 115 thou/uL 130-400 [facility] ynyunj8292-86-43 17:25:00* Test Item Value Reference Range Interpretation Comme [facility] Mean Platelet Volume (test c ode = 26590-4) 10.7 fL 7.4-10.4 [facility] Blood by Automated count 2022-03-05 17:25:00* Test Item Value Reference Range Interpretation Comme [facility] Lymphocytes # (test code = 731-0) Not Performed [facility] blood segmented neutrophils/100 leukocytes 2022-03-05 17:25:00* Test Item Value Reference Range Interpretation Comme [facility] Neutrophils % (Manual) (test code = 769-0) 54 % 42-75 [facility] blood lymphocytes/100 wibejgpgjt5537-49-68 17:25:00* Test Item Value Reference Range Interpretation Comme [facility] Lymphocytes % (Manual) (test code = 737-7) 38 % 21-51 [facility] blood monocytes/100 ijtycxmpld6017-68-58 17:25:00* Test Item Value Reference Range Interpretation Comme [facility] Monocytes % (Manual) (test c ode = 744-3) 7 % 0-10 [facility] blood eosinophils/100 ylcallnbmz7469-97-27 17:25:00* Test Item Value Reference Range Interpretation Comme nts Eosinophils % (Manual) (test code = 714-6) 1 % 0-10 [facility] anisocytosis detection by light microscopy 2022-03-05 17:25:00* Test Item Value Reference Range Interpretation Comme nts Anisocytosis (test code = 702-1) SLIGHT = 6-15 cells (100X) [facility] macrocytes detection by light microscopy 2022-03-05 17:25:00* Test Item Value Reference Range Interpretation Comme nts Macrocytosis (test code = 738-5) SLIGHT = 6-15 cells (100X) [facility] polychromasia detection by light microscopy 2022-03-05 17:25:00* Test Item Value Reference Range Interpretation Comme nts Polychromasia (test code = 05932-7) SLIGHT = 2-3 cells (100X) [facility] smudge cells detection by light microscopy 2022-03-05 17:25:00* Test Item Value Reference Range Interpretation Comme nts Smudge Cells (test code = 7798-2) SLIGHT [facility] platelets detection by light microscopy 2022-03-05 17:25:00* Test Item Value Reference Range Interpretation Comme nts Large Platelets (test code = 28301-1) SLIGHT [facility] HealthPlatelet adequacy [Presence] in Blood by Light piwxbxvhmm5226-27-67 17:25:00* Test Item Value Reference Range Interpretation Comme nts Platelet Morphology Comment (test code = 9317-9) Appears Decreased [facility] or plasma sodium measurement (moles/volume) 2022-03-05 17:25:00* Test Item Value Reference Range Interpretation Comme nts Sodium Level (test code = 2951-2) 140 mmol/L 136-145 [facility] or plasma potassium measurement (moles/volume) 2022-03-05 17:25:00* Test Item Value Reference Range Interpretation Comme nts Potassium Level (test code = 2823-3) 3.6 mmol/L 3.5[facility].1 [facility] chloride measurement (moles/volume) 2022-03-05 17:25:00* Test Item Value Reference Range Interpretation Comme nts Chloride Level (test code = 2075-0) 105 mmol/L 98-107 [facility] or plasma carbon dioxide, total measurement (moles/volume)2022-03-05 17:25:00* Test Item Value Reference Range Interpretation Comme nts Carbon Dioxide Level (test c ode = 2028-05) 19 mmol/L 22-29 [facility] or plasma anion phi1147-68-23 17:25:00* Test Item Value Reference Range Interpretation Comme [facility] Anion Gap (test code = 67619-5) 20 mmol/L 10-20 [facility] or plasma urea nitrogen measurement (mass/volume)2022-03-05 17:25:00* Test Item Value Reference Range Interpretation Comme [facility] Blood Urea Nitrogen (test co de = 3094-0) 12 mg/dL 8.4-25.7 [facility] or plasma creatinine measurement (mass/volume) 2022-03-05 17:25:00* Test Item Value Reference Range Interpretation Comme [facility] Creatinine (test code = 2160-0) 0.73 mg/dL 0.7-1.3 [facility]ucose [Mass/volume] in Serum or Byfuas3214-20-28 17:25:00* Test Item Value Reference Range Interpretation Comme [facility] Glucose Level (test code = 2345-7) 270 mg/dL 70-105 [facility] or plasma calcium measurement (mass/volume) 2022-03-05 17:25:00* Test Item Value Reference Range Interpretation Comme [facility] Calcium Level (test code = 82083-7) 8.9 mg/dL 7.8-10.44 [facility] or plasma total bilirubin measurement (mass/volume)2022-03-05 17:25:00* Test Item Value Reference Range Interpretation Comme [facility] Total Bilirubin (test code = 1975-2) 1.0 mg/dL 0.2-1.2 [facility] or plasma protein measurement (mass/volume) 2022-03-05 17:25:00* Test Item Value Reference Range Interpretation Comme [facility] Serum Total Protein (test co de = 2885-2) 8.6 g/dL 6.0-8.3 [facility] or plasma albumin measurement by bromocresol green (BCG) dye binding method ([id number] 17:25:00* Test Item Value Reference Range Interpretation Comme [facility] Albumin (test code = 96069-3) 3.5 g/dL 3.5-5.0 [facility]obulin [Mass/volume] in Serum by calculation 2022-03-05 17:25:00* Test Item Value Reference Range Interpretation Comme nts Globulin (test code = 83470-7) 5.1 g/dL 2.4-3.5 [facility]in/Globulin [Mass Ratio] in Serum or Plasma 2022-03-05 17:25:00* Test Item Value Reference Range Interpretation Comme nts Albumin/Globulin Ratio (test code = 1759-0) 0.7 g/dL 1.2-2.2 [facility]atic activity/volume] in Serum or Gckuea3411-27-35 17:25:00* Test Item Value Reference Range Interpretation Comme nts Alkaline Phosphatase (test c ode = 6768-6) 89 U/L 40-110 [facility] or plasma aspartate aminotransferase measurement (enzymatic activity/volume)2022-03-05 17:25:00* Test Item Value Reference Range Interpretation Comme nts Aspartate Amino Transf (AST/ SGOT) (test code = 1920-8) 152 U/L 5-34 [facility] [Enzymatic activity/volume] in Serum or Rswbdl3701-10-98 17:25:00* Test Item Value Reference Range Interpretation Comme [facility] Creatine Kinase (test code = 2157-6) 120 U/L 30-200 [facility] or plasma alanine aminotransferase measurement without P-5'-P (enzymatic [id number] 17:25:00* Test Item Value Reference Range Interpretation Comme nts Alanine Aminotransferase (AL T/SGPT) (test code = 1744-2) 161 U/L 8-55 [facility] or plasma sodium measurement (moles/volume) 2022-03-05 17:25:00* Test Item Value Reference Range Interpretation Comme nts Sodium Level (test code = 2951-2) 140 mmol/L 136-145 [facility]Serum or plasma potassium measurement (moles/volume)2022-03-05 17:25:00* Test Item Value Reference Range Interpretation Comme nts Potassium Level (test code = 2823-3) 3.6 mmol/L 3.5-5.1 [facility]Serum or plasma chloride measurement (moles/volume)2022-03-05 17:25:00* Test Item Value Reference Range Interpretation Comme [facility] Chloride Level (test code = 2075-0) 105 mmol/L 98-107 [facility])Serum or plasma carbon dioxide, total measurement (moles/volume)2022-03-05 17:25:00* Test Item Value Reference Range Interpretation Comme [facility] Carbon Dioxide Level (test c ode = 2027-9) 19 mmol/L 22-29 [facility]Serum or plasma anion [id number] 17:25:00* Test Item Value Reference Range Interpretation Comme [facility] Anion Gap (test code = 96451-7) 20 mmol/L 10-20 [facility])Serum or plasma urea nitrogen measurement (mass/volume)2022-03-05 17:25:00* Test Item Value Reference Range Interpretation Comme [facility] Blood Urea Nitrogen (test co de = 3094-0) 12 mg/dL 8.4-25.7 [facility]Serum or plasma creatinine measurement (mass/volume)2022-03-05 17:25:00* Test Item Value Reference Range Interpretation Comme [facility] Creatinine (test code = 2160-0) 0.73 mg/dL 0.7-1.3 [facility])Glucose [Mass/volume] in Serum or Plasma 2022-03-05 17:25:00* Test Item Value Reference Range Interpretation Comme [facility] Glucose Level (test code = 2345-7) 270 mg/dL 70-105 [facility]Serum or plasma calcium measurement (mass/volume)2022-03-05 17:25:00* Test Item Value Reference Range Interpretation Comme [facility] Calcium Level (test code = 59892-3) 8.9 mg/dL 7.8-10.44 [facility])Serum or plasma total bilirubin measurement (mass/volume)2022-03-05 17:25:00* Test Item Value Reference Range Interpretation Comme [facility] Total Bilirubin (test code = 1975-2) 1.0 mg/dL 0.2-1.2 [facility])Serum or plasma protein measurement (mass/volume)2022-03-05 17:25:00* Test Item Value Reference Range Interpretation Comme [facility] Serum Total Protein (test co de = 2885-2) 8.6 g/dL 6.0-8.3 [facility])Serum or plasma albumin measurement by bromocresol green (BCG) dye binding method ([id number] 17:25:00* Test Item Value Reference Range Interpretation Comme [facility] Albumin (test code = 99203-5) 3.5 g/dL 3.5-5.0 [facility])Globulin [Mass/volume] in Serum by calculation 2022-03-05 17:25:00* Test Item Value Reference Range Interpretation Comme nts Globulin (test code = 90901-2) 5.1 g/dL 2.4-3.5 [facility])Albumin/Globulin [Mass Ratio] in Serum or Dnywde0580-87-14 17:25:00* Test Item Value Reference Range Interpretation Comme [facility] Albumin/Globulin Ratio (test code = 1759-0) 0.7 g/dL 1.2-2.2 [facility])Alkaline phosphatase [Enzymatic activity/volume] in Serum or Eegglh1164-83-85 17:25:00* Test Item Value Reference Range Interpretation Comme [facility] Alkaline Phosphatase (test c ode = 6768-6) 89 U/L 40-110 [facility]Serum or plasma aspartate aminotransferase measurement (enzymatic activity/volume)2022-03-05 17:25:00* Test Item Value Reference Range Interpretation Comme [facility] Aspartate Amino Transf (AST/ SGOT) (test code = 1920-8) 152 U/L 5-34 [facility])Creatine kinase [Enzymatic activity/volume] in Serum or Dgavre6600-11-08 17:25:00* Test Item Value Reference Range Interpretation Comme [facility] Creatine Kinase (test code = 2157-6) 120 U/L 30-200 [facility])Serum or plasma alanine aminotransferase measurement without P-5'-P (enzymatic [id number] 17:25:00* Test Item Value Reference Range Interpretation Comme nts Alanine Aminotransferase (AL T/SGPT) (test code = 1744-2) 161 U/L 8-55 [facility])Serum or plasma ethanol measurement (mass/volume)2022-03-05 17:25:00* Test Item Value Reference Range Interpretation Comme nts Plasma Alcohol (test code = 5643-2) 258 mg/dL Less than 1 0 [facility])Leukocytes [#/volume] in Blood by Automated [id number] 17:25:00* Test Item Value Reference Range Interpretation Comme nts White Blood Count (test code = 6690-2) 4.7 thou/uL 4.8-10.8 [facility])Blood erythrocytes automated count (number/volume)2022-03-05 17:25:00* Test Item Value Reference Range Interpretation Comme nts Red Blood Count (test code = 789-8) 4.91 mill/uL 4.70-6.10 [facility] ([place])Blood hemoglobin measurement (mass/volume) 2022-03-05 17:25:00* Test Item Value Reference Range Interpretation Comme nts Hemoglobin (test code = 718-7) 16.0 g/dL 14.0-18.0 [facility])Automated erythrocyte mean corpuscular volume 2022-03-05 17:25:00* Test Item Value Reference Range Interpretation Comme nts Mean Corpuscular Volume (roly t code = 787-2) 105.0 fL 78.0-98.0 [facility] ([place])Automated erythrocyte mean corpuscular hemoglobin (mass per erythrocyte)2022-03-05 17:25:00* Test Item Value Reference Range Interpretation Comme nts Mean Corpuscular Hemoglobin (test code = 785-6) 32.7 pg 27.0-31.0 [facility] ([place])Automated erythrocyte mean corpuscular hemoglobin concentration measurement (mass/[id number] 17:25:00* Test Item Value Reference Range Interpretation Comme nts Mean Corpuscular Hemoglobin Concent (test code = 786-4) 31.2 g/dL 32.0-36.0 [facility])Automated erythrocyte distribution width ratio 2022-03-05 17:25:00* Test Item Value Reference Range Interpretation Comme nts Red Cell Distribution Width (test code = 788-0) 13.0 % 11.5-14.5 [facility])Automated blood platelet count (count/volume) 2022-03-05 17:25:00* Test Item Value Reference Range Interpretation Comme nts Platelet Count (test code = 777-3) 115 thou/uL 130-400 [facility])Automated blood platelet mean [id number] 17:25:00* Test Item Value Reference Range Interpretation Comme nts Mean Platelet Volume (test c ode = 05007-0) 10.7 fL 7.4-10.4 [facility])Lymphocytes [#/volume] in Blood by Automated [id number] 17:25:00* Test Item Value Reference Range Interpretation Comme nts Lymphocytes # (test code = 731-0) Not Performed [facility])Manual blood segmented neutrophils/100 avzsghcyct3095-56-61 17:25:00* Test Item Value Reference Range Interpretation Comme nts Neutrophils % (Manual) (test code = 769-0) 54 % 42-75 [facility])Manual blood lymphocytes/100 leukocytes 2022-03-05 17:25:00* Test Item Value Reference Range Interpretation Comme nts Lymphocytes % (Manual) (test code = 737-7) 38 % 21-51 [facility])Manual blood monocytes/100 leukocytes 2022-03-05 17:25:00* Test Item Value Reference Range Interpretation Comme nts Monocytes % (Manual) (test c ode = 744-3) 7 % 0-10 [facility])Manual blood eosinophils/100 leukocytes 2022-03-05 17:25:00* Test Item Value Reference Range Interpretation Comme nts Eosinophils % (Manual) (test code = 714-6) 1 % 0-10 [facility])Blood anisocytosis detection by light yadkzefhnb9766-19-53 17:25:00* Test Item Value Reference Range Interpretation Comme nts Anisocytosis (test code = 702-1) SLIGHT = 6-15 cells (100X) [facility] ([place])Blood macrocytes detection by light microscopy 2022-03-05 17:25:00* Test Item Value Reference Range Interpretation Comme [facility] Macrocytosis (test code = 738-5) SLIGHT = 6-15 cells (100X) [facility] ([place])Blood polychromasia detection by light [id number] 17:25:00* Test Item Value Reference Range Interpretation Comme [facility] Polychromasia (test code = 73988-3) SLIGHT = 2-3 cells (100X) [facility] ([place])Blood smudge cells detection by light xhxfgecqdp8476-65-92 17:25:00* Test Item Value Reference Range Interpretation Comme [facility] Smudge Cells (test code = 7798-2) SLIGHT [facility] ([place])Blood large platelets detection by light bizcvgoopt5524-36-05 17:25:00* Test Item Value Reference Range Interpretation Comme [facility] Large Platelets (test code = 65439-7) SLIGHT [facility])Platelet adequacy [Presence] in Blood by Light ulqvwmuflw1170-83-94 17:25:00* Test Item Value Reference Range Interpretation Comme nts Platelet Morphology Comment (test code = 9317-9) Appears Decreased [facility])LIPID [id number] 00:14:54* Test Item Value Reference Range Interpretation Comme nts CHOLESTEROL (test code = 2210) 167 MG/DL <200 TRIGLYCERIDES (test code = 2232) 119 MG/DL <150 HDL CHOLESTEROL (test code = 2220) 43 MG/DL >39 CALC LDL CHOL (test code = 2237) 102 MG/DL <100 H NOTE: CALCULATED LDL IS BASED ON GERRY-DAVIDSON METHOD WHICHINCLUDES ADJUSTABLE TRIGLYCERIDE:VLDL CHOLESTEROL RATIO.THIS FACTOR VARIES BY MEASURED TRIGLYCERIDE AND NON-HDLCHOLESTEROL CONCENTRATIONS WITH INCREASED CALCULATED LDL SEENIN HIGHER TRIGLYCERIDE OR LOWER NON-HDL SPECIMENS. FOR MOREINFORMATION, SEE CLIENT ANNOUNCEMENT AT [email or web address] RISK RATIO LDL/HDL (test code = 2237) 2.37 RATIO <3.55 COMPREHENSIVE METABOLIC [id number] 00:14:54* Test Item Value Reference Range Interpretation Comme nts GLUCOSE (test code = 2216) 261 MG/DL 70-99 H BUN (test code = 2207) 14 MG/DL 6-20 CREATININE (test code = 2213) 0.62 MG/DL 0.80-1.40 L eGFR (2020 CKD-EPI) (test code = 39586) 111 ML/MIN/1.73 >60 CALC BUN/CREAT (test code = 2235) 23 RATIO 6-28 SODIUM (test code = 2230) 143 MEQ/L 133-146 POTASSIUM (test code = 2227) 4.0 MEQ/L 3.5-5.4 CHLORIDE (test code = 2215) 106 MEQ/L 95-107 CARBON DIOXIDE (test code = 2205) 22 MEQ/L 19-31 CALCIUM (test code = 2208) 9.4 MG/DL 8.5-10.5 PROTEIN, TOTAL (test code = 222) 8.2 G/DL 6.1-8.3 ALBUMIN (test code = 2200) 3.5 G/DL 3.5-5.2 CALC GLOBULIN (test code = 2240) 4.7 G/DL 1.9-3.7 H CALC A/G RATIO (test code = 223) 0.7 RATIO 1.0-2.6 L BILIRUBIN, TOTAL (test code = 2206) 0.6 MG/DL See_Comment [Automated me ssage] The system which generated this result transmitted reference range: <=1.2. The reference range was not used to interpret this result as normal/abnormal. ALKALINE PHOSPHATASE (test code = 4) 88 U/L 40-123 AST (test code = 2218) 152 U/L 9-50 H ALT (test code = 2219) 209 U/L 5-50 H UNLESS OTHERWISE INDICATED, ALL TESTING PERFORMED [facility] [address] [place] [id number] PNEUMATIC TESTER: NAI BEAR M.D. CLIA NUMBER [id number] [facility] [place] [id number] LIPID [id number] 00:00:00* Test Item Value Reference Range Interpretation Comme nts CHOLESTEROL (test code = 2210) 167 MG/DL TRIGLYCERIDES (test code = 2232) 119 MG/DL HDL CHOLESTEROL (test code = 2220) 43 MG/DL CALC LDL CHOL (test code = 2237) 102 MG/DL RISK RATIO LDL/HDL (test cod e = 2238) 2.37 RATIO Familia HeadCOMPREHENSIVE METABOLIC [id number] 00:00:00* Test Item Value Reference Range Interpretation Comme nts GLUCOSE (test code = 2217) 261 MG/DL BUN (test code = 2208) 14 MG/DL CREATININE (test code = 2214) 0.62 MG/DL eGFR (2020 CKD-EPI) (test code = 07029) 111 ML/MIN/1.73 CALC BUN/CREAT (test code = 2235) 23 RATIO SODIUM (test code = 2231) 143 MEQ/L POTASSIUM (test code = 2228) 4.0 MEQ/L CHLORIDE (test code = 2215) 106 MEQ/L CARBON DIOXIDE (test code = 2206) 22 MEQ/L CALCIUM (test code = 2209) 9.4 MG/DL PROTEIN, TOTAL (test code = 2229) 8.2 G/DL ALBUMIN (test code = 2201)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
[2025-01-30] MEDS ORDERED: FUROSEMIDE 40 MG/4 ML VIAL ONE (09:32)
--- NOTE | 2025-01-30 09:52 | RAD REPORT ---
Procedure: Chest Single View HISTORY: Cough COMPARISON: 2021 FINDINGS: The lungs appear clear of acute infiltrate. No significant pleural effusion noted. The heart is moderately enlarged. IMPRESSION: No acute abnormality is displayed.
[2025-01-30 09:55] LABS: Absolute Lymphocytes (CBC) 0.7 K/uL (0.7-4.9); Absolute Neutrophil 6.6 K/uL (1.8-8.0); Basophils % 0.5 % (0-1.3); Eosinophils % 0.5 % (0-4.4); Hematocrit 33.9 % (39.6-49.0); Lymphocytes % 8.5 % (15.3-44.8); MCH 36.6 pg (27.0-35.0); MCHC 35.5 g/dL (32.0-36.0); MCV 103.3 fL (80-100); MPV 9.2 fL (7.6-11.3); Monocytes % 11.6 % (3.3-12.3); Neutrophils % 78.9 % (41.7-73.7); RBC Red Blood Cell Count 3.28 M/uL (4.33-5.43); Red Cell Distribution Width 14.4 % (12.1-15.2)
[2025-01-30 10:11] LABS: PT Prothrombin Time 17.1 SECONDS (10-13.0); PTT, Activated Partial Thromb 31.3 SECONDS (27.2-37.4); Protime INR 1.53
[2025-01-30 11:06] LABS: Albumin/Globulin Ratio 0.3 (1.1-1.8); Anion Gap 8.7 mEq/L (5.0-15.0); Bilirubin Direct 3.4 mg/dL (0-0.2); Bilirubin Indirect, Calculated 2.7 mg/dL (0.2-0.8); Bilirubin Total 6.1 mg/dL (0.2-1.0); Globulin 7.2 g/dL (2.3-3.5); Potassium 2.7 mEq/L (3.5-5.1); Protein, Total 9.2 g/dL (6.4-8.2); Troponin High Sensitivity 21.7 pg/mL (<58.9)
--- NOTE | 2025-01-30 11:23 | RAD REPORT ---
EXAM: Chest Abdomen Pelvis W Cont CLINICAL INDICATION: Chest and abdominal pain status post fall TECHNIQUE: CT chest, abdomen and pelvis was performed, with 100 cc Isovue-300 IV contrast, as per de partment protocol. Axial, sagittal and coronal reconstructions were obtained. One or more of the following dose reduction techniques were used: Automated exposure control, adjustment of the mA and/o r kV according to the patient size, and/or iterative reconstruction. Unless otherwise specified, incidental findings do not require dedicated imaging follow-up. [id number]. Oral contrast not given. This limits evaluation of the bowel. COMPARISON: CT chest 2001 FINDINGS: A pulmonary contusion not seen. No mediastinal hematoma noted No pleural effusion.. No pericardial effusion 6 cm linear low-density inferior medial aspect of the spleen. Probable small adjacent subcapsular hem atoma. In addition there is ascites secondary to cirrhosis surrounding the spleen. An additional small linear lucency anterior spleen may represent a cleft. Spleen is moderately enlarged. Cirrhotic liver containing several small nonspecific low-density lesions. Nonobstructing renal calculi Pancreas, adrenals, kidneys and bladder do not demonstrate a traumatic injury. Moderate ascites. Edema within the subcutaneous tissues. Small umbilical hernia contains ascites. IMPRESSION: 6 cm low-density area inferomedial aspect of the spleen probably an laceration rather than a cleft. T here does appear to be a small adjacent subcapsular hematoma. Cirrhosis with moderate ascites. Several small vague low-density hepatic lesions are nonspecific. Nonemergent MRI liver recommended. The exam was discussed with Dr. Amaral
--- NOTE | 2025-01-30 11:45 | EDPHYS ---
Physician Documentation [facility] Name: Barney Kang Age: 59 yrs Sex: Male : 1965 Arrival Date: 01/30/2025 Time: 09:03 Bed 7 Private MD: ED Physician Gal Amaral HPI: 01/30 09:34 This 59 yrs old Male presents to ER via EMS with complaints of Shortness Of Breath. rt 09:34 Patient with history of cirrhosis, A-fib, diabetes presents to the ED with 1 week of rt progressively worsening generalized weakness, edema, shortness of breath. Patient reports compliance with his medicines except for this morning for which she did not take his Lasix. Denies other acute complaints at this time, symptoms are moderate in severity, no other aggravating or alleviating factors.. Historical: - Allergies: 09:07 No Known Allergies; ld1 - PMHx: 09:07 Atrial fibrillation; diabetes mellitus; Sleep Apnea; ld1 - PSHx: 09:07 Appendectomy; ld1 - Immunization history:: Adult Immunizations up to date. - Infectious Disease History:: Denies. - Social history:: Smoking status: Patient denies any tobacco usage or history of. - Family history:: not pertinent. ROS: 09:34 Constitutional: Negative for fever, chills, and weight loss, MS/Extremity: Negative for rt injury and deformity, Skin: Negative for injury, rash, and discoloration, 09:34 Cardiovascular: Positive for edema, Negative for chest pain, 09:34 Respiratory: Positive for cough, shortness of breath, 09:34 Abdomen/GI: Positive for abdominal pain, diarrhea, 09:34 Neuro: Positive for weakness, Negative for loss of consciousness, Exam: 09:34 Constitutional: This is a well developed, well nourished patient who is awake, alert, rt and in no acute distress. Head/Face: Normocephalic, atraumatic. Chest/axilla: Normal chest wall appearance and motion. Nontender with no deformity. No lesions are appreciated. Cardiovascular: Regular rate and rhythm with a normal S1 and S2. No gallops, murmurs, or rubs. Normal PMI, no JVD. No pulse deficits. Skin: Warm, dry with normal turgor. Normal color with no rashes, no lesions, and no evidence of cellulitis. Neuro: Awake and alert, GCS 15, oriented to person, place, time, and situation. Cranial nerves II-XII grossly intact. Motor strength 5/5 in all extremities. Sensory grossly intact. Cerebellar exam normal. Normal gait. 09:34 Respiratory: Bibasilar crackles, no respiratory distress, 09:34 Abdomen/GI: Ascitic abdomen, mild tenderness diffusely, 09:34 Musculoskeletal/extremity: 3+ pitting bilateral extremity edema. 09:49 ECG was reviewed by the Attending Physician. rt Vital Signs: 09:05 BP 160 / 131; Pulse 63; Resp 18; Pulse Ox 94% on R/A; ld1 09:10 Temp 97.5(TE); Weight 122.92 kg; ld1 10:14 BP 108 / 81; Pulse 96; Resp 18; Pulse Ox 94% on R/A; ld1 12:37 BP 117 / 72; Pulse 105; Resp 18; Pulse Ox 98% on R/A; ph 13:00 BP 120 / 78; Pulse 98; Resp 18; Pulse Ox 93% on R/A; ph 13:30 BP 97 / 69; Pulse 101; Resp 18; Pulse Ox 97% on R/A; ph 14:00 BP 98 / 66; Pulse 104; Resp 18; Pulse Ox 96% on R/A; ph 14:30 BP 105 / 77; Pulse 106; Resp 18; Pulse Ox 94% on R/A; ph 14:49 BP 126 / 79; Pulse 84; Resp 18; Pulse Ox 96% on R/A; ld1 MDM: 09:05 Medical Screening Exam initiated rt 14:58 Differential diagnosis: Cirrhosis, anasarca, hypokalemia, splenic laceration. Data rt reviewed: vital signs, nurses notes, lab test result(s), EKG, radiologic studies. Consideration of Admission/Observation Patient requires transfer to trauma center. 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 Independent interpretation of the following test(s) in the Emergency Department CT Scan: My interpretation is Splenic laceration seen on interpretation of CT scan images. Care significantly affected by the following chronic conditions: Diabetes. Response to treatment: the patient's symptoms have mildly improved after treatment. 01/30 09:07 Order name: Basic Metabolic Panel; Complete Time: 11:15 rt 01/30 09:07 Order name: CBC with Diff; Complete Time: 12:03 rt 01/30 09:07 Order name: LFT's; Complete Time: 11:15 rt 01/30 09:07 Order name: NT PRO-BNP; Complete Time: 11:15 rt 01/30 09:07 Order name: PT-INR; Complete Time: 11:15 rt 01/30 09:07 Order name: Troponin HS; Complete Time: 11:15 rt 01/30 09:07 Order name: Ptt, Activated; Complete Time: 11:15 rt 01/30 11:29 Order name: CBC Smear Scan; Complete Time: 12:03 EDMS 01/30 09:07 Order name: XRAY Chest (1 view); Complete Time: 09:53 rt 01/30 10:34 Order name: Chest Abdomen Pelvis W Cont; Complete Time: 11:24 EDMS 01/30 09:07 Order name: Cardiac monitoring; Complete Time: 09:31 rt 01/30 09:07 Order name: EKG - Nurse/Tech; Complete Time: 09:47 rt 01/30 09:07 Order name: IV Saline Lock; Complete Time: 09:12 rt 01/30 09:07 Order name: Labs collected and sent; Complete Time: 09:47 rt 01/30 09:07 Order name: O2 Per Protocol; Complete Time: 09:10 rt 01/30 09:07 Order name: O2 Sat Monitoring; Complete Time: 09:10 rt 01/30 10:24 Order name: Labs - recollect needed: recollect green and lavender top; Complete Time: bd 12:04 EC:49 Rate is 100 beats/min. Rhythm is irregularly irregular, A fib with Right bundle branch rt block. Left axis deviation noted. QRS interval is normal. QT interval is normal. No Q waves. Administered Medications: 09:47 Drug: Furosemide IVP 40 mg IVP once; give over 2 minutes Route: IVP; Site: left ld1 antecubital; 12:40 Follow up: Response: No adverse reaction ld1 12:40 Drug: Potassium Chloride PO Liquid 40 mEq PO once Route: PO; ld1 12:40 Drug: Potassium Chloride IV 40 mEq IV at 40 calculated rate once; administer over 40 ld1 hours Route: IV; Rate: 40 calculated rate; Site: right antecubital; Disposition: 14:58 Critical Care:. rt Disposition Summary: 01/30/25 11:45 Transfer Ordered Notes: Transfer Location: [facility] rt Reason: Higher level of care rt Condition: Fair rt Problem: new rt Symptoms: are unchanged rt Accepting Physician: (01/30/25 14:51) ld1 Diagnosis - Splenic laceration rt - Fall from standing rt - Advance cirrhosis rt - Hypokalemia rt - Anasarca rt Forms: - Medication Reconciliation Form rt - SBAR form rt Critical care time excluding procedures: 14:58 Critical care time: Bedside Care: 30 minutes, Consultation: 5 minutes. Total time: 35 rt minutes Signatures: Dispatcher [employer] EDMS Genevieve York Lauren, RN RN ld1 Gal Amaral MD MD rt Corrections: (The following items were deleted from the chart) 09:07 09:07 BASIC METABOLIC PANEL+C.LAB.BRZ ordered. EDMS EDMS 09:07 09:07 CBC+H.LAB.BRZ ordered. EDMS EDMS 09:07 09:07 HEPATIC FUNCTION+C.LAB.BRZ ordered. EDMS EDMS 09:07 09:07 PROBNP+C.LAB.BRZ ordered. EDMS EDMS 09:07 09:07 PROTIME (+INR)+COAG.LAB.BRZ ordered. EDMS EDMS 09:07 09:07 Troponin High Sensitivity+C.LAB.BRZ ordered. EDMS EDMS 09:07 09:07 PTT, ACTIVATED+COAG.LAB.BRZ ordered. EDMS EDMS 09:07 09:07 Chest Single View+RAD.RAD.BRZ ordered. EDMS EDMS 09:07 09:07 Abdomen W/ Con+CT.RAD.BRZ ordered. EDMS EDMS 14:51 11:45 rt ld1 15:01 14:58 Post IV fluid administration reassessment for Sepsis: Client not prescribed the rt 30 mL/kg IVF due to: Amount of IVF prescribed: 1000 Not in septic shock Focused assessment performed: January 30, 2025 at 14:00 Heart: Regular rate/rhythm. Lungs: noted to be clear bilaterally. Cardio: Cardiovascular exam improved from previous exam. Heart rate and blood pressure have improved. Respiratory: Respiratory exam improved from previous exam. rt
--- NOTE | 2025-01-30 11:45 | ER ---
Nurse's Notes [facility] Name: Barney Kang Age: 59 yrs Sex: Male : 1965 Arrival Date: 01/30/2025 Time: 09:03 Bed 7 Private MD: Diagnosis: Splenic laceration;Fall from standing;Advance cirrhosis;Hypokalemia;Anasarca Presentation: 01/30 09:05 Chief complaint: EMS states: toned out to patient home for SOB. Pt reports not being ld1 compliant with medications. Reports falling last night - bruising to abdomen. Afib - does not take blood thinners. Coronavirus screen: At this time, the client does not indicate any symptoms associated with coronavirus-19. Ebola Screen: No symptoms or risks identified at this time. Initial Sepsis Screen: Does the patient meet any 2 criteria? No. Patient's initial sepsis screen is negative. Does the patient have a suspected source of infection? No. Patient's initial sepsis screen is negative. Risk Assessment: Do you want to hurt yourself or someone else? Patient reports no desire to harm self or others. Onset of symptoms was January 30, 2025. 09:05 Method Of Arrival: EMS: [facility] ld1 09:05 Acuity: MAGO 2 ld1 Triage Assessment: 09:07 General: Appears in no apparent distress. comfortable, Behavior is calm, cooperative, ld1 appropriate for age. Pain: Denies pain. EENT: No signs and/or symptoms were reported regarding the EENT system. Neuro: Level of Consciousness is awake, alert, obeys commands, Oriented to person, place, time, situation. Cardiovascular: Capillary refill < 3 seconds Patient's skin is warm and dry. Rhythm is irregular. Respiratory: Reports shortness of breath at rest on exertion Airway is patent Respiratory effort is even, unlabored, Onset: The symptoms/episode began/occurred suddenly, the patient has moderate shortness of breath. GI: Abdomen is round distended, noted to have ascites. : No signs and/or symptoms were reported regarding the genitourinary system. Derm: No signs and/or symptoms reported regarding the dermatologic system. Musculoskeletal: No signs and/or symptoms reported regarding the musculoskeletal system. Historical: - Allergies: 09:07 No Known Allergies; ld1 - PMHx: 09:07 Atrial fibrillation; diabetes mellitus; Sleep Apnea; ld1 - PSHx: 09:07 Appendectomy; ld1 - Immunization history:: Adult Immunizations up to date. - Infectious Disease History:: Denies. - Social history:: Smoking status: Patient denies any tobacco usage or history of. - Family history:: not pertinent. Screenin:09 [facility] ED Fall Risk Assessment (Adult) History of falling in the last 3 months, ld1 including since admission Yes- single mechanical fall (1 pt) Confusion or Disorientation No (0 pts) Intoxicated or Sedated No (0 pts) Impaired Gait No (0 pts) Mobility Assist Device Used No (0 pt) Altered Elimination No (0 pt) Score/Fall Risk Level 0 - 2 = Low Risk Oriented to surroundings, Hourly rounding (assess needs \T\ fall precautionary measures) done. Abuse screen: Denies threats or abuse. Denies injuries from another. Nutritional screening: No deficits noted. Tuberculosis screening: No symptoms or risk factors identified. Assessment: 09:09 Reassessment: See triage assessment. ld1 09:09 Cardiovascular: Capillary refill < 3 seconds Patient's skin is warm and dry. Rhythm is ld1 irregular. Respiratory: Airway is patent Respiratory effort is even, unlabored, Breath sounds are clear bilaterally. 10:14 Reassessment: No changes from previously documented assessment. Patient and/or family ld1 updated on plan of care and expected duration. Pain level reassessed. 14:48 Reassessment: No changes from previously documented assessment. Patient and/or family ld1 updated on plan of care and expected duration. Pain level reassessed. Vital Signs: 09:05 BP 160 / 131; Pulse 63; Resp 18; Pulse Ox 94% on R/A; ld1 09:10 Temp 97.5(TE); Weight 122.92 kg; ld1 10:14 BP 108 / 81; Pulse 96; Resp 18; Pulse Ox 94% on R/A; ld1 12:37 BP 117 / 72; Pulse 105; Resp 18; Pulse Ox 98% on R/A; ph 13:00 BP 120 / 78; Pulse 98; Resp 18; Pulse Ox 93% on R/A; ph 13:30 BP 97 / 69; Pulse 101; Resp 18; Pulse Ox 97% on R/A; ph 14:00 BP 98 / 66; Pulse 104; Resp 18; Pulse Ox 96% on R/A; ph 14:30 BP 105 / 77; Pulse 106; Resp 18; Pulse Ox 94% on R/A; ph 14:49 BP 126 / 79; Pulse 84; Resp 18; Pulse Ox 96% on R/A; ld1 ED Course: 09:05 Patient arrived in ED. ld1 09:05 Gal Amaral MD is Attending Physician. rt 09:07 Triage completed. ld1 09:07 Arm band placed on right wrist. ld1 09:09 Patient has correct armband on for positive identification. Placed in gown. Bed in low ld1 position. Call light in reach. Side rails up X2. bobbin winder tender on. Pulse ox on. NIBP on. Door closed. Noise minimized. Warm blanket given. 09:09 No provider procedures requiring assistance completed. Maintain EMS IV. Dressing ld1 intact. Good blood return noted. Site clean \T\ dry. Gauge \T\ site: 20G LAC. 09:12 Yuridia Barber, NATANAEL is Primary Nurse. ld1 09:32 XRAY Chest (1 view) In Process Unspecified. EDMS 10:34 Chest Abdomen Pelvis W Cont In Process Unspecified. EDMS 12:06 initiated transfer to [facility]. bd 12:27 pt admitted in transfer to [facility] ER by Dr Recinos admin approval given by Jesse Nelson. 14:51 Patient transferred, IV remains in place. ld1 Administered Medications: 09:47 Drug: Furosemide IVP 40 mg IVP once; give over 2 minutes Route: IVP; Site: left ld1 antecubital; 12:40 Follow up: Response: No adverse reaction ld1 12:40 Drug: Potassium Chloride PO Liquid 40 mEq PO once Route: PO; ld1 12:40 Drug: Potassium Chloride IV 40 mEq IV at 40 calculated rate once; administer over 40 ld1 hours Route: IV; Rate: 40 calculated rate; Site: right antecubital; Medication: 09:09 VIS not applicable for this client. ld1 Outcome: 11:45 ER care complete, transfer ordered by . rt 14:51 Transferred by ground EMS to [facility], ld1 14:51 Condition: stable 14:51 Instructed on the need for transfer, 14:51 Patient left the ED. ld1 Signatures: Dispatcher [employer] EDMS Genevieve York Stacy, RN RN ph BarberYuridia cotton RN RN ld1 Gal Amaral MD MD rt Corrections: (The following items were deleted from the chart) 09:07 09:05 Chief complaint: EMS states: toned out to patient home for SOB. Pt reports not ld1 being compliant with medications. Reports falling last night - bruising to abdomen. ld1
[2025-01-30 12:02] LABS: Blood Morphology Comment NOT SEEN (NOT SEEN); Platelet Estimate DECR; Platelets 125 thou/uL (152-406); White Blood Cell Scan OK (OK)
[2025-01-30] MEDS ORDERED: POTASSIUM 25 MEQ EFFERV TAB ONE (12:18)
[2025-01-30] MEDS ORDERED: NA CHLORIDE 0.9% 1,000 ML ONE (12:18)
[2025-01-30] MEDS ORDERED: KCL 20 MEQ/100 mL IVPB 200 ML IV ONE (12:18)
[2025-01-30 14:57] VITALS: TEMP 97.5
[2025-01-30 15:08] VITALS: BP 126/79; O2SAT 96
== END 2025-01-30 14:51 | disposition short-term general hospital (02) ==
LOC: ER 09:03
DX: E87.6 Hypokalemia (principal); S36.039A Unspecified laceration of spleen, initial encounter; W18.30XA Fall on same level, unspecified, initial encounter; K74.60 Unspecified cirrhosis of liver; R60.1 Generalized edema; E11.9 Type 2 diabetes mellitus without complications; I10 Essential (primary) hypertension
CPT/HCPCS: 85025; 80048; 36415; 85610; 80076; 85730; 84484; 83880; 71260; 74177; 71045; Q9967; J3480; J1938; J7030; 93005

== ENCOUNTER 2025-06-01 03:14 | Emergency (ER) | payer MEDICARE ==
[2025-06-01] MEDS ORDERED: FENTANYL CITR 100 MCG/2 ML ONE (03:59)
[2025-06-01] MEDS ORDERED: ONDANSETRON 4 MG/2 ML VIAL ONE (03:59)
[2025-06-01 04:00] LABS: Absolute Lymphocytes (CBC) 1.2 K/uL (0.7-4.9); Hematocrit 36.8 % (39.6-49.0); Hemoglobin 12.7 g/dL (13.6-17.9); MCH 33.1 pg (27.0-35.0); MCHC 34.6 g/dL (32.0-36.0); MCV 95.5 fL (80-100); MPV 8.9 fL (7.6-11.3); Nucleated RBC Absolute Count 0.0 (0-0); Nucleated Red Blood Cells % 0.0 % (0-0); RBC Red Blood Cell Count 3.85 M/uL (4.33-5.43); White Blood Count 6.30 thou/uL (4.3-10.9)
[2025-06-01 04:26] LABS: ALT/SGPT 90.0 U/L (16-61); AST/SGOT 77.0 U/L (15-37); Albumin 2.5 g/dL (3.4-5.0); Albumin/Globulin Ratio 0.4 (1.1-1.8); Alkaline Phosphatase 119.0 U/L (45-117); Anion Gap 6.5 mEq/L (5.0-15.0); BUN Blood Urea Nitrogen 23.0 mg/dL (7-18); Globulin 6.8 g/dL (2.3-3.5); Glucose Level 156.0 mg/dL (74-106); Lipase 67.0 U/L (13-75); Potassium 3.5 mEq/L (3.5-5.1)
--- NOTE | 2025-06-01 06:00 | RAD REPORT ---
EXAM DESCRIPTION: Chest Abdomen Pelvis W Cont CLINICAL HISTORY: TRAUMA COMPARISON: April 14, 2025 CT Chest Abdomen Pelvis Without Contrast. February 17, 2025 MR Abdomen Without Then Wit h Contrast. TECHNIQUE: Contiguous axial images of the chest, abdomen and pelvis were obtained after the administration of in travenous contrast followed by reconstruction images. The exam was performed according to our departmental dose-optimization program, which includes automated exposure control, adjustment of the mA and/or kV according to patient size and/or use of iterative reconstruction technique. FINDINGS: CHEST: MEDIASTINUM: The heart size is enlarged. No pericardial effusion. There are scattered coronary vascul ar calcifications. The aorta is intact without aneurysm. There are no pathologically enlarged intrathoracic or axillary lymph nodes. LUNGS/PLEURA: The central airways are patent. The lungs are clear. No consolidation or pleural effusi on. No pulmonary edema or pneumothorax. No lung cavitation noted. No noncalcified nodule. SOFT TISSUES/BONES: There are no suspicious-appearing lytic or blastic osseous lesions. No acute osse ous abnormality. ABDOMEN/PELVIS: ORGANS: The liver is cirrhotic with nodular contour. Multiple hypodense liver lesions suggesting cyst or hemangioma. Complex hypervascular lesion within the left hepatic lobe measuring up to approximately 2.3 x 4.2 cm correlating prior MRI findings concerning for sequela of underlying hepato cellular carcinoma. Spleen is enlarged measuring 19 cm. The gallbladder, and adrenal glands are normal. The pancreas demonstrates peripancreatic inflammatory fat stranding adjacent to the tail and distal body of the pancreas. Correlate clinical features of acute pancreatitis. The kidneys enhance symmetrically. There are bilateral nonobstructing renal calculi. Left renal upper pole simple cyst re quires no follow-up evaluation. GI/BOWEL: There are no findings of small bowel obstruction. No acute bowel wall inflammatory change. The appendix is not visualized. Scattered colonic diverticula without pericolonic inflammation. PELVIS: The bladder is normal. The rectum is normal. No pelvic free. No pelvic lymphadenopathy noted. PERITONEUM/RETROPERITONEUM: No intraperitoneal free air or free fluid. No retroperitoneal or mesenter ic lymphadenopathy. Recanalization of the umbilical vein secondary to underlying portal hypertension. Small amount of fluid noted within a fat-containing and variceal-containing umbilical h ernia. Portal vein, superior mesenteric vein, and splenic vein are patent. BONES/SOFT TISSUES: No suspicious lytic or blastic osseous lesions. No acute osseous abnormality. IMPRESSION: 1. No acute intrathoracic abnormality. 2. Cirrhosis with sequela of portal hypertension. 3. 2.3 x 4.2 cm hypervascular lesion left hepatic lobe concerning for hepatocellular carcinoma. 4. Peripancreatic inflammatory fat stranding. Correlate clinical features of acute pancreatitis. 5. Bilateral nephrolithiasis. 6. Diverticulosis. RECOMMENDATIONS: Electronically signed by: Delmar Herr MD 06/01/2025 05:54 AM CDT RP Due to temporary technical issues with the PACS/[employer] reporting system, reports are being moe d by the in-house radiologist without review as a courtesy to ensure prompt reporting the interpreting radiologist is fully responsible for the content of the report. Transcribed Date/Time: 06/01/2025 6:00 AM
--- NOTE | 2025-06-01 06:01 | RAD REPORT ---
ADDENDUM #1 EXAMINATION: Head C Spine Mpr Wo Con CLINICAL HISTORY: TRAUMA COMPARISON: January 30, 2025 TECHNIQUE: Contiguous noncontrast axial images of the cervical spine were obtained. Sagittal and shellie nal reformatted images are generated for review. This exam was performed according to our departmental dose-optimization program, which includes automated exposure control, adjustment of the mA and/or kV according to patient size and/or use of iterative reconstruction technique. FINDINGS: BONES: There is no acute fracture or traumatic malalignment. DEGENERATIVE CHANGES: Multilevel degenerative disc disease and facet arthropathy with multilevel neur al foraminal stenosis. SOFT TISSUES: he prevertebral soft tissues are normal. IMPRESSION: No acute osseous abnormality of the cervical spine. RECOMMENDATIONS: If there is further concern for infection, nerve root compression, or disc herniation correlation to MRI imaging would be recommended. Electronically signed by: Delmar Herr MD 06/01/2025 05:56 AM CDT RP End of Addendum EXAMINATION: Head C Spine Mpr Wo Con CLINICAL HISTORY: TRAUMA COMPARISON: April 14, 2025 CT Head And Cervical Spine Without Contrast. TECHNIQUE: Contiguous noncontrast axial images of the head were obtained. Sagittal and coronal reform atted images are generated for review. This exam was performed according to our departmental dose-optimization program, which includes automated exposure control, adjustment of the mA and/or kV according to patient size and/or use of iterative reconstruction technique. FINDINGS: BRAIN/VENTRICLES: There is no acute intracranial hemorrhage, mass effect or midline shift. No abnorma l extra-axial fluid collections. The acuna-white differentiation is maintained without evidence of acute infarct. There is no evidence of hydrocephalus. ORBITS: The visualized portions of the orbits demonstrate no acute abnormality. SINUSES: The visualized paranasal sinuses and mastoid air cells demonstrate no acute abnormality. SOFT TISSUE/SKULL: No acute abnormality of the visualized skull or soft tissues. CERVICAL SPINE: FINDINGS: BONES: There is no acute fracture or traumatic malalignment. DEGENERATIVE CHANGES: No significant degenerative changes. SOFT TISSUES: he prevertebral soft tissues are normal. IMPRESSION: No acute intracranial abnormality. No acute osseous abnormality of the cervical spine. RECOMMENDATIONS: If there is further concern for infection, nerve root compression, or disc herniation correlation to MRI imaging would be recommended. Electronically signed by: Delmar Herr MD 06/01/2025 05:46 AM CDT RP Due to temporary technical issues with the PACS/[email or web address] reporting system, reports are being moe d by the in-house radiologist without review as a courtesy to ensure prompt reporting the interpreting radiologist is fully responsible for the content of the report. Transcribed Date/Time: 06/01/2025 6:01 AM
--- NOTE | 2025-06-01 06:18 | EDPHYS ---
Physician Documentation [facility] Name: Barney Kang Age: 59 yrs Sex: Male : 1965 Arrival Date: 06/01/2025 Time: 03:14 Bed 2 Private MD: ED Physician Justin Cline Historical: - Allergies: 06/01 03:27 No Known Allergies; lg3 - Home Meds: 03:27 metoprolol tartrate 25 mg Oral tablet every 6 hours [Active]; torsemide 20 mg oral lg3 tablet twice a day [Active]; spironolactone 100 mg Oral tablet daily [Active]; digoxin 125 mcg (0.125 mg) Oral tablet daily [Active]; folic acid 1 mg Oral tablet daily [Active]; Semglee(insulin glargine-yfgn) 100 unit/mL subcutaneous solution 30 units daily [Active]; - PMHx: 03:27 Atrial fibrillation; CHF; cirrhosis of liver; diabetes mellitus; LIVER CA; Sleep Apnea; lg3 - PSHx: 03:27 Appendectomy; lg3 - Immunization history:: Adult Immunizations up to date. - Infectious Disease History:: Denies. - Social history:: Smoking status: Patient denies any tobacco usage or history of. Vital Signs: 03:25 BP 136 / 82; Pulse 75; Resp 16 S; Temp 97.8(O); Pulse Ox 99% on R/A; Weight 100 kg (M); lg3 Height 6 ft. 1 in. (R); 04:13 BP 110 / 72; Pulse 72; Resp 14; Pulse Ox 96% on R/A; mf3 05:50 BP 109 / 79; Pulse 79; Resp 15 S; Pulse Ox 97% on R/A; lg3 06:24 BP 103 / 82; Pulse 85; Resp 15; Pulse Ox 99% on R/A; mf3 03:25 Body Mass Index 29.09 (100.00 kg, 185.42 cm) lg3 MDM: 03:28 Medical Screening Exam initiated tt7 06/01 03:31 Order name: CBC with Diff; Complete Time: 04:37 tt7 06/01 03:31 Order name: CMP; Complete Time: 04:37 tt06/01 03:31 Order name: Lipase; Complete Time: 04:37 tt06/01 03:31 Order name: AMMONIA; Complete Time: 04:37 tt7 06/01 04:31 Order name: Head C Spine Mpr Wo Con EDMS 06/01 04:32 Order name: Chest Abdomen Pelvis W Cont EDMS 06/01 03:31 Order name: IV Saline Lock; Complete Time: 03:33 tt7 06/01 03:31 Order name: Labs collected and sent; Complete Time: 03:33 tt7 Administered Medications: 04:03 Drug: fentaNYL (PF) IVP 50 mcg IVP once Route: IVP; Site: right antecubital; lg3 05:51 Follow up: Response: No adverse reaction; Marked relief of symptoms lg3 04:03 Drug: Ondansetron IVP 4 mg IVP once; over 2 minutes Route: IVP; Site: right antecubital;lg3 05:51 Follow up: Response: No adverse reaction lg3 06:34 Drug: Lactulose PO 20 grams 30 ml PO once Volume: 30 ml; Route: PO; mf3 06:34 Follow up: Response: No adverse reaction; Medication administered at discharge. mf3 06:34 Not Given (med not avaliablee): rifAXIMin 550 mg PO once mf3 Disposition Summary: 06/01/25 06:17 Discharge Ordered Notes: Location: Home tt7 Problem: new tt7 Symptoms: are resolved tt7 Condition: Stable tt7 Diagnosis - Fall on same level, unspecified tt7 - CLOSED HEAD INJURY tt7 - ELEVATED AMMONIA tt7 Followup: tt7 - With: Emergency Department - When: As needed - Reason: Followup: tt7 - With: Private Physician - When: 1 - 2 days - Reason: Recheck today's complaints, Re-evaluation by your physician Discharge Instructions: - Discharge Summary Sheet tt7 - Concussion, Adult, [id number] tt7 Forms: - SBAR form aa5 - Medication Reconciliation Form tt7 - Antibiotic Education tt7 - Prescription Opioid Use tt7 - Patient Portal Instructions tt7 - Leadership Thank You Letter tt7 Signatures: Dispatcher [employer] Aurelia Mitchell RN RN lg3 Hannah Duncan RN RN mf3 Justin Cline DO DO tt7 Corrections: (The following items were deleted from the chart) 04:31 03:31 Head C Spine CAP W Con+CT.RAD.BRZ ordered. EDMS EDMS
--- NOTE | 2025-06-01 06:18 | ER ---
Nurse's Notes [facility] Name: Barney Kang Age: 59 yrs Sex: Male : 1965 Arrival Date: 06/01/2025 Time: 03:14 Bed 2 Private MD: Diagnosis: Fall on same level, unspecified;CLOSED HEAD INJURY;ELEVATED AMMONIA Presentation: 06/01 03:25 Chief complaint: EMS states: found on bedroom floor by family. HX of stage 2 liver lg3 failure with increased confusion. Coronavirus screen: Client denies travel out of the [place] in the last 14 days. At this time, the client does not indicate any symptoms associated with coronavirus-19. Ebola Screen: No symptoms or risks identified at this time. Initial Sepsis Screen: Does the patient meet any 2 criteria? No. Patient's initial sepsis screen is negative. Does the patient have a suspected source of infection? No. Patient's initial sepsis screen is negative. Risk Assessment: Do you want to hurt yourself or someone else? Patient reports no desire to harm self or others. Onset of symptoms is unknown. 03:25 Method Of Arrival: EMS: [facility] lg3 03:25 Acuity: MAGO 3 lg3 Triage Assessment: 03:27 General: Appears in no apparent distress. uncomfortable, Behavior is calm, flat. Pain: lg3 Denies pain. EENT: No deficits noted. No signs and/or symptoms were reported regarding the EENT system. Neuro: Devine Agitation-Sedation Scale (RASS): 0 - Alert and Calm Level of Consciousness is awake, confused, Oriented to person, place, situation. Cardiovascular: No deficits noted. Denies chest pain, shortness of breath, Capillary refill < 3 seconds Clubbing of nail beds is absent JVD is absent Patient's skin is warm and dry. Respiratory: No deficits noted. Airway is patent Respiratory effort is even, unlabored, Respiratory pattern is regular, symmetrical. GI: Abdomen is round distended, noted to have ascites. : No signs and/or symptoms were reported regarding the genitourinary system. Derm: Skin is intact, is healthy with good turgor, Skin is dry, Skin is normal, jaundiced, Skin temperature is warm. Musculoskeletal: Circulation, motion, and sensation intact. Range of motion: intact in all extremities. Historical: - Allergies: 03: No Known Allergies; lg3 - Home Meds: 03:27 metoprolol tartrate 25 mg Oral tablet every 6 hours [Active]; torsemide 20 mg oral lg3 tablet twice a day [Active]; spironolactone 100 mg Oral tablet daily [Active]; digoxin 125 mcg (0.125 mg) Oral tablet daily [Active]; folic acid 1 mg Oral tablet daily [Active]; Semglee(insulin glargine-yfgn) 100 unit/mL subcutaneous solution 30 units daily [Active]; - PMHx: 03: Atrial fibrillation; CHF; cirrhosis of liver; diabetes mellitus; LIVER CA; Sleep Apnea; lg3 - PSHx: : Appendectomy; lg3 - Immunization history:: Adult Immunizations up to date. - Infectious Disease History:: Denies. - Social history:: Smoking status: Patient denies any tobacco usage or history of. Screenin: [facility] ED Fall Risk Assessment (Adult) History of falling in the last 3 months, lg3 including since admission Yes- single mechanical fall (1 pt) Confusion or Disorientation Yes (5 pts) Intoxicated or Sedated No (0 pts) Impaired Gait Yes (1 pt) Mobility Assist Device Used Yes (1 pt) Altered Elimination No (0 pt) Score/Fall Risk Level 3 or more points = High Risk Oriented to surroundings, Maintained a safe environment, Educated pt \T\ family on fall prevention, incl call for assistance when getting out of bed, Assessed \T\ reinforced patient's understanding of fall precautions. Abuse screen: Denies threats or abuse. Denies injuries from another. Nutritional screening: No deficits noted. Tuberculosis screening: No symptoms or risk factors identified. Assessment: 03:31 General: see triage assessment. lg3 05:50 Reassessment: Patient appears in no apparent distress at this time. No changes from lg3 previously documented assessment. Patient and/or family updated on plan of care and expected duration. Pain level reassessed. Patient is alert, oriented x 3, equal unlabored respirations, skin warm/dry/pink. Vital Signs: 03:25 BP 136 / 82; Pulse 75; Resp 16 S; Temp 97.8(O); Pulse Ox 99% on R/A; Weight 100 kg (M); lg3 Height 6 ft. 1 in. (R); 04:13 BP 110 / 72; Pulse 72; Resp 14; Pulse Ox 96% on R/A; mf3 05:50 BP 109 / 79; Pulse 79; Resp 15 S; Pulse Ox 97% on R/A; lg3 06:24 BP 103 / 82; Pulse 85; Resp 15; Pulse Ox 99% on R/A; mf3 03:25 Body Mass Index 29.09 (100.00 kg, 185.42 cm) lg3 ED Course: 03:22 Patient arrived in ED. cp4 03:27 Triage completed. lg3 03:27 Arm band placed on right wrist. lg3 03:28 Justin Cline DO is Attending Physician. tt7 03:31 Patient has correct armband on for positive identification. Placed in gown. Bed in low lg3 position. Call light in reach. Side rails up X2. Client placed on continuous cardiac and pulse oximetry monitoring. NIBP monitoring applied. teletypesetter monitor on. Door closed. Noise minimized. Warm blanket given. Pillow given. Family accompanied patient. 03:31 Maintain EMS IV. Dressing intact. Good blood return noted. Site clean \T\ dry. Gauge \T\ lg 3 site: 22 L Hand. Flushed with 10 mL NS. 03:33 Aurelia Fair, NATANAEL is Primary Nurse. lg3 04:03 Initial lab(s) drawn, by ED staff, sent to lab. Inserted saline lock: 20 gauge in right lg3 antecubital area, using aseptic technique. Blood collected. Flushed with 10 mL NS. 04:43 Head C Spine Mpr Wo Con In Process Unspecified. EDMS 04:45 Chest Abdomen Pelvis W Cont In Process Unspecified. EDMS 06:34 No provider procedures requiring assistance completed. IV discontinued, intact, mf3 bleeding controlled, No redness/swelling at site. Pressure dressing applied. Administered Medications: 04:03 Drug: fentaNYL (PF) IVP 50 mcg IVP once Route: IVP; Site: right antecubital; lg3 05:51 Follow up: Response: No adverse reaction; Marked relief of symptoms lg3 04:03 Drug: Ondansetron IVP 4 mg IVP once; over 2 minutes Route: IVP; Site: right antecubital;lg3 05:51 Follow up: Response: No adverse reaction lg3 06:34 Drug: Lactulose PO 20 grams 30 ml PO once Volume: 30 ml; Route: PO; 3 06:34 Follow up: Response: No adverse reaction; Medication administered at discharge. 3 06:34 Not Given (med not avaliablee): rifAXIMin 550 mg PO once 3 Medication: 03:31 VIS not applicable for this client. lg3 Outcome: 06:17 Discharge ordered by . tt7 06:34 Discharged to home via ambulance, 3 06:34 Condition: stable 06:34 Discharge instructions given to patient, Instructed on discharge instructions, follow up and referral plans. Demonstrated understanding of instructions, follow-up care, 06:34 Patient left the ED. 3 Signatures: Dispatcher [employer] EDMS Aurelia Fair RN RN 3 Hayde Griffith 4 Hannah Duncan RN RN mf3 Justin Cline, DO DO tt7
[2025-06-01] MEDS ORDERED: LACTULOSE 20 GM/30 ML UCUP ONE (06:23)
[2025-06-01 07:09] VITALS: TEMP 97.8
[2025-06-01 07:12] VITALS: BP 103/82; O2SAT 99
== END 2025-06-01 06:34 | disposition home or self-care (01) ==
LOC: ER 03:14
DX: S09.90XA Unspecified injury of head, initial encounter (principal); W18.30XA Fall on same level, unspecified, initial encounter; E72.20 Disorder of urea cycle metabolism, unspecified; E11.9 Type 2 diabetes mellitus without complications; I48.91 Unspecified atrial fibrillation; G47.30 Sleep apnea, unspecified
CPT/HCPCS: 36415; 70450; 71260; 72125; 74177; 80053; 82140; 83690; 85025; 96374; 96375; 99285; J2405; J3010; Q9967

== ENCOUNTER 2025-06-04 09:15 | Inpatient (IN) | payer MEDICARE ==
[2025-06-04 09:52] LABS: Absolute Lymphocytes (CBC) 1.2 K/uL (0.7-4.9); Hematocrit 39.1 % (39.6-49.0); Hemoglobin 13.3 g/dL (13.6-17.9); MCH 32.3 pg (27.0-35.0); MCHC 34.2 g/dL (32.0-36.0); MCV 94.7 fL (80-100); MPV 9.1 fL (7.6-11.3); Nucleated RBC Absolute Count 0.0 (0-0); Nucleated Red Blood Cells % 0.1 % (0-0); RBC Red Blood Cell Count 4.13 M/uL (4.33-5.43); White Blood Count 8.10 thou/uL (4.3-10.9)
[2025-06-04 09:58] LABS: PT Prothrombin Time 17.4 SECONDS (10-13.0); Protime INR 1.56
[2025-06-04] MEDS ORDERED: PANTOPRAZOLE 40 MG INJ ONE (10:24)
[2025-06-04] MEDS ORDERED: CEFTRIAXONE 1000 MG/VIAL ONE (10:24)
[2025-06-04] MEDS ORDERED: NA CHLORIDE 0.9% 100 ML ONE (10:25)
[2025-06-04 10:27] LABS: Sqamous Epithelial None Seen /HPF (None Seen); Urine Culture Reflex Order NOT NEEDED; Urine Microscopic Reflex YN ORDER UMIC
--- NOTE | 2025-06-04 10:41 | RAD REPORT ---
EXAMINATION: ONE VIEW CHEST XR CLINICAL INDICATION: Male, 59 years old.,COUGH TECHNIQUE: Frontal chest projection is submitted. Examination is limited by patient positioning and t echnique. COMPARISON: 01/30/2025 FINDINGS: Kyphotic positioning limits evaluation. The lungs are well inflated and clear. No pneumothorax or si zable effusion. The heart is normal in size. Mediastinal contours are unchanged with tortuosity of the aorta. IMPRESSION: No acute intrathoracic abnormalities.
[2025-06-04] MEDS ORDERED: NA CHLORIDE 0.9% 1,000 ML with MULTIVITAMINS INJ 10 ML, THIAMINE HCL 100 MG, FOLIC ACID... IV ONE (11:00)
[2025-06-04] MEDS: NA CHLORIDE 0.9% 1,000 ML with MULTIVITAMINS INJ 10 ML, THIAMINE HCL 100 MG, FOLIC ACID... IV SCH (11:00)
[2025-06-04 11:09] LABS: ALT/SGPT 86.0 U/L (16-61); AST/SGOT 83.0 U/L (15-37); Albumin 2.6 g/dL (3.4-5.0); Albumin/Globulin Ratio 0.4 (1.1-1.8); Alkaline Phosphatase 120.0 U/L (45-117); Anion Gap 11.9 mEq/L (5.0-15.0); BUN Blood Urea Nitrogen 23.0 mg/dL (7-18); Bilirubin Indirect, Calculated 1.0 mg/dL (0.2-0.8); Globulin 6.9 g/dL (2.3-3.5); Glucose Level 167.0 mg/dL (74-106); Lipase 53.0 U/L (13-75); Magnesium 2.2 mg/dL (1.6-2.4); NT PRO-BNP 76.0 pg/mL (<125); Potassium 3.9 mEq/L (3.5-5.1); Troponin High Sensitivity 10.3 pg/mL (<58.9)
--- NOTE | 2025-06-04 12:00 | RAD REPORT ---
EXAM: CT brain without contrast HISTORY: Dizziness;Trauma COMPARISON: 06/01/2025 TECHNIQUE: Multiple contiguous axial images were obtained and a CT of the brain without contrast. Sag ittal and coronal reformats were performed. FINDINGS: Motion artifact limits evaluation despite attempts at repeat imaging. No evidence of hydrocephalus, intracranial hemorrhage, or extra-axial fluid collection. The brain is normal in morphology. The calvarium is intact. The visualized paranasal sinuses and mastoid air cells are essentially clear . IMPRESSION: No evidence of acute intracranial abnormality. EXAM: CT of the cervical spine without contrast HISTORY: Dizziness;Trauma COMPARISON: None TECHNIQUE: Multiple contiguous axial images were obtained in a CT of the cervical spine without contr ast. Sagittal and coronal reformats were performed. FINDINGS: Motion artifact limits evaluation. The vertebral bodies demonstrate normal height and alignment. No evidence of acute fracture or sublux ation.. No degenerative changes are present. No prevertebral soft tissue swelling is seen. The posterior facets are well aligned. Normal alignment of the skull base with the cervical spine is seen. The lung apices are unremarkable. IMPRESSION: No evidence of acute osseous abnormality of the cervical spine.
--- NOTE | 2025-06-04 12:08 | RAD REPORT ---
EXAM: CT CHEST, ABDOMEN AND PELVIS WITHOUT CONTRAST CLINICAL INDICATION: Male, 59 years old. [facility] DIZZY, TRAUMA TECHNIQUE: CT chest, abdomen and pelvis was performed, without IV contrast, as per department protoco l. Axial, sagittal and coronal reconstructions were obtained. One or more of the following dose reduction techniques were used: Automated exposure control, adjustment of the mA and/or kV according to the patient size, and/or iterative reconstruction. Unless otherwise specified, incidental findings do not require dedicated imaging follow-up. COMPARISON: 04/14/2025 FINDINGS: The lack of intravenous contrast limits the sensitivity of this exam for evaluation of solid visceral organs, vascular structures, and retroperitoneum. Chest: LOWER NECK/CHEST WALL: Visualized thyroid gland and soft tissues are normal. LUNGS AND AIRWAYS: Airways are clear. No evidence of airspace or interstitial process. No nodules. PLEURA: No pleural effusion. No pneumothorax. Hemidiaphragms are normally positioned. MEDIASTINUM AND LYMPH NODES: No mediastinal mass or fluid collection. Normal size mediastinal, hilar, and axillary lymph nodes. THORACIC AORTA: Normal caliber and configuration. PULMONARY ARTERIES: Normal caliber. HEART: Unremarkable. Abdomen/Pelvis LIVER: Nodular contour with hypertrophy of the caudate and left lobes, again suggestive of cirrhosis. Stable subcapsular anterior marginally calcified 1.3 cm lesion near the dome. GALLBLADDER/BILE DUCTS: No biliary ductal dilatation. PANCREAS: No mass, ductal dilation, or channing-pancreatic fluid. SPLEEN: Enlarged measuring 17.6 cm long axis ADRENALS: Normal; no mass. KIDNEYS AND URETERS: Normal size and contour. Bilateral nonobstructing renal calculi largest measurin g 7 mm at the left lower pole, and 6 millimeters at the right interpolar region. No hydronephrosis. GASTROINTESTINAL TRACT: Stomach is non-dilated. Small bowel has normal course and caliber. No colonic wall thickening or pericolonic inflammatory changes. PERITONEUM: No free fluid. LYMPH NODES: No lymphadenopathy. ABDOMINAL AORTA AND OTHER VESSELS: Normal caliber aorta and IVC. URINARY BLADDER: Decompressed limiting evaluation. REPRODUCTIVE ORGANS: No pathologic process. MUSCULOSKELETAL: New acute appearing left lateral fifth through seventh rib fractures. Few other rib fractures with signs of interval healing. ADDITIONAL FINDINGS: None IMPRESSION: Acute appearing left lateral fifth through seventh rib fractures. Few other left-sided healing rib fr actures. Sequelae of cirrhosis with splenomegaly. Bilateral nonobstructing renal calculi.
--- NOTE | 2025-06-04 12:52 | EDPHYS ---
Physician Documentation [facility] Name: Barney Kang Age: 59 yrs Sex: Male : 1965 Arrival Date: 06/04/2025 Time: 09:15 Bed 8 Private MD: ED Physician Natan Rae HPI: 06/04 12:42 This 59 yrs old Male presents to ER via EMS with complaints of FALL , AMS , lynda CIRRHOSIS, A FLUTTER. 12:42 FALL AT HOME, AMS. Details of fall: The patient fell from an upright position, while lynda walking. Onset: The symptoms/episode began/occurred just prior to arrival, this morning. Associated injuries: The patient sustained injury to the chest, contusion. The patient presents with confusion, decreased mental status, decreased responsiveness. Possible causes: CVA or TIA, drug use, alcohol, head injury, low blood sugar, sepsis, CIRRHOSIS. Associated signs and symptoms: Pertinent positives: agitation. Patient's baseline: Neuro: alert and fully oriented. Historical: - PMHx: 09:43 Atrial fibrillation; CHF; cirrhosis of liver; diabetes mellitus; LIVER CA; Sleep Apnea; ap3 - PSHx: 09:43 Appendectomy; ap3 - Immunization history:: Adult Immunizations up to date. - Infectious Disease History:: Denies. - Family history:: not pertinent. - Social history:: Smoking status: Patient reports use of chewing tobacco. ROS: 12:42 Constitutional: Negative for fever, chills, and weight loss, Eyes: Negative for injury, lynda pain, redness, and discharge, ENT: Negative for injury, pain, and discharge, Neck: Negative for injury, pain, and swelling, Cardiovascular: Negative for chest pain, palpitations, and edema, Respiratory: Negative for shortness of breath, cough, wheezing, and pleuritic chest pain, Abdomen/GI: Negative for abdominal pain, nausea, vomiting, diarrhea, and constipation, Back: Negative for injury and pain, : Negative for injury, bleeding, discharge, and swelling, Skin: Negative for injury, rash, and discoloration, Neuro: Negative for headache, weakness, numbness, tingling, and seizure, 12:42 Respiratory: Negative for cough, shortness of breath, 12:42 MS/extremity: Positive for pain, of the right leg and left leg, Exam: 12:42 Constitutional: This is a well developed, well nourished patient who is awake, alert, lynda and in no acute distress. Head/Face: Normocephalic, atraumatic. Eyes: Pupils equal round and reactive to light, extra-ocular motions intact. Lids and lashes normal. Conjunctiva and sclera are non-icteric and not injected. Cornea within normal limits. Periorbital areas with no swelling, redness, or edema. ENT: Nares patent. No nasal discharge, no septal abnormalities noted. Tympanic membranes are normal and external auditory canals are clear. Oropharynx with no redness, swelling, or masses, exudates, or evidence of obstruction, uvula midline. Mucous membranes moist. Neck: Trachea midline, no thyromegaly or masses palpated, and no cervical lymphadenopathy. Supple, full range of motion without nuchal rigidity, or vertebral point tenderness. No Meningismus. Cardiovascular: Regular rate and rhythm with a normal S1 and S2. No gallops, murmurs, or rubs. Normal PMI, no JVD. No pulse deficits. Respiratory: Lungs have equal breath sounds bilaterally, clear to auscultation and percussion. No rales, rhonchi or wheezes noted. No increased work of breathing, no retractions or nasal flaring. Abdomen/GI: Soft, non-tender, with normal bowel sounds. No distension or tympany. No guarding or rebound. No evidence of tenderness throughout. Back: No spinal tenderness. No costovertebral tenderness. Full range of motion. Male : Normal genitalia with no discharge or lesions. Skin: Warm, dry with normal turgor. Normal color with no rashes, no lesions, and no evidence of cellulitis. MS/ Extremity: Pulses equal, no cyanosis. Neurovascular intact. Full, normal range of motion., bilateral aka Psych: Awake, alert, with orientation to person, place and time. Behavior, mood, and affect are within normal limits. 12:42 Chest/axilla: Inspection: normal, no abrasion, no abscess, no assymetry, no cellulitis, no deformity, no ecchymosis, no evidence of flail chest, no paradoxical chest wall movement, no puncture, Palpation: tenderness, that is mild, of the anterior aspect of right upper chest, anterior aspect of left upper chest, right breast and left breast, 12:42 ECG was reviewed by the Attending Physician. Vital Signs: 10:06 BP 158 / 91; Pulse 96; Resp 19; Temp 98.3(A); Pulse Ox 97% on R/A; ap3 10:36 BP 122 / 81; Pulse 87; Resp 18; Pulse Ox 96% on R/A; ap3 13:58 BP 122 / 81; Pulse 92; Resp 19; Pulse Ox 97% on R/A; ap3 MDM: 09:25 Medical Screening Exam initiated lynda 12:46 Differential Diagnosis altered mental status, sepsis, flu. Differential diagnosis: lynda abrasion, closed head injury, contusion, fracture, multiple trauma, sprain, strain, electrolyte abnormality, alcohol intoxication, hypoglycemia, intracranial bleed, overdose, pneumonia, UTI, volume depletion. Data reviewed: vital signs, nurses notes, lab test result(s), EKG, radiologic studies, CT scan, plain films. Consideration of Admission/Observation Patient was admitted/placed on observation. Escalation of care including admission/observation considered. I considered the following discharge prescriptions or medication management in the emergency department Medications were administered in the Emergency Department. See MAR. Independent interpretation of the following test(s) in the Emergency Department EKG: See my EKG interpretation above. Test considered but Not performed: MRI: NO MRI BRAIN. Historians other than the Patient: EMS: [facility] WELL INFORMED. Care significantly affected by the following chronic conditions: Diabetes, Hypertension, Congestive Heart Failure, Cancer, Chronic Kidney Disease, Liver Disease. 06/04 09:27 Order name: Basic Metabolic Panel; Complete Time: 12:38 [facility] 06/04 09:27 Order name: CBC with Diff; Complete Time: 12:38 [facility] 06/04 09:27 Order name: LFT's; Complete Time: 12:38 [facility] 06/04 09:27 Order name: Magnesium; Complete Time: 12:38 [facility] 06/04 09:27 Order name: NT PRO-BNP; Complete Time: 12:38 [facility] 06/04 09:27 Order name: PT-INR; Complete Time: 12:38 [facility] 06/04 09:27 Order name: Troponin HS; Complete Time: 12:38 [facility] 06/04 09:27 Order name: Lipase; Complete Time: 12:38 [facility] 06/04 09:27 Order name: UA Rfx True Cult if indicated; Complete Time: 12:38 [facility] 06/04 09:27 Order name: AMMONIA; Complete Time: 12:38 [facility] 06/04 09:29 Order name: Blood Culture Adult (2) [facility] 06/04 09:29 Order name: Lactate w/ 2H reflex if indic.; Complete Time: 12:38 [facility] 06/04 09:38 Order name: Digoxin; Complete Time: 12:38 [facility] 06/04 14:18 Order name: Alcohol Serum/Plasma EDMS 06/04 14:18 Order name: Phosphorus EDMS 06/04 14:18 Order name: PTH Intact EDMS 06/04 14:18 Order name: Thyroid Stimulating Hormone EDMS 06/04 14:18 Order name: Basic Metabolic Panel EDMS 06/04 14:18 Order name: Basic Metabolic Panel EDMS 06/04 14:18 Order name: Basic Metabolic Panel EDMS 06/04 14:18 Order name: Basic Metabolic Panel EDMS 06/04 14:18 Order name: CBC with Automated Diff EDMS 06/04 14:18 Order name: CBC with Automated Diff EDMS 06/04 14:18 Order name: CBC with Automated Diff EDMS 06/04 14:18 Order name: CBC with Automated Diff EDMS 06/04 14:18 Order name: Liver (Hepatic) Function EDMS 06/04 14:18 Order name: Liver (Hepatic) Function EDMS 06/04 14:18 Order name: Liver (Hepatic) Function EDMS 06/04 14:18 Order name: Liver (Hepatic) Function EDMS 06/04 14:18 Order name: Magnesium EDMS 06/04 14:18 Order name: Magnesium EDMS 06/04 14:18 Order name: Magnesium EDMS 06/04 14:19 Order name: Magnesium EDMS 06/04 14:19 Order name: Phosphorus EDMS 06/04 14:19 Order name: Phosphorus EDMS 06/04 14:19 Order name: Protime (+INR) EDMS 06/04 14:19 Order name: Protime (+INR) EDMS 06/04 14:19 Order name: Protime (+INR) EDMS 06/04 14:19 Order name: Protime (+INR) EDMS 06/04 14:19 Order name: Troponin High Sensitivity EDMS 06/04 14:19 Order name: Troponin High Sensitivity EDMS 06/04 14:19 Order name: Troponin High Sensitivity EDMS 06/04 09:27 Order name: XRAY Chest (1 view); Complete Time: 12:38 [facility] 06/04 09:41 Order name: Chest Abd Pelvis Wo Con; Complete Time: 12:38 [facility] 06/04 09:42 Order name: Head C Spine Mpr Wo Con; Complete Time: 12:38 [facility] 06/04 09:27 Order name: EKG; Complete Time: 09:28 [facility] 06/04 14:05 Order name: CONS Physician Consult [facility] 06/04 09:27 Order name: Cardiac monitoring; Complete Time: 09:44 [facility] 06/04 09:27 Order name: EKG - Nurse/Tech; Complete Time: 10:01 [facility] 06/04 09:27 Order name: IV Saline Lock; Complete Time: 09:44 [facility] 06/04 09:27 Order name: Labs collected and sent; Complete Time: 09:44 [facility] 06/04 09:27 Order name: O2 Per Protocol; Complete Time: 09:44 [facility] 06/04 09:27 Order name: O2 Sat Monitoring; Complete Time: 09:44 [facility] 06/04 09:27 Order name: Glucose Level; Complete Time: 10:56 [facility] 06/04 09:29 Order name: Payne; Complete Time: 10:01 [facility] EC:42 Rate is 86 beats/min. Rhythm is irregularly irregular. QRS [place] is Normal. [place] interval lynda is normal. QT interval is normal. No Q waves. T waves are Normal. No ST changes noted. Clinical impression: Atrial Flutter and No evidence of ischemia. Interpreted by me. Reviewed by me. Administered Medications: 10:35 Drug: Pantoprazole IVP 40 mg IVP once Route: IVP; Site: right forearm; ap3 11:20 Follow up: Response: No adverse reaction ap3 10:35 Drug: Rocephin IV 1 grams IV at per protocol once; Given slow IV push per pharmacy ap3 instructions Route: IV; Rate: per protocol; Site: right forearm; 11:20 Follow up: IV Status: Completed infusion ap3 11:20 Drug: Banana Bag - (Multivitamin IV 1 amp, NS 0.9% IV 1000 ml, Thiamine IV 100 mg, ap3 foLIC Acid IVPB 1 mg) IV at 500 ml/hr once Route: IV; Rate: 500 ml/hr; Site: right forearm; 16:23 Follow up: IV Status: Completed infusion ap3 14:09 Drug: Lactulose PO 30 grams 45 ml PO once Volume: 45 ml; Route: PO; ap3 16:23 Follow up: Response: No adverse reaction ap3 14:09 Drug: Digoxin IVP 0.25 mg IVP once Route: IVP; Site: right forearm; ap3 16:23 Follow up: Response: No adverse reaction ap3 Disposition Summary: 06/04/25 12:51 Hospitalization Ordered Notes: Hospitalization Status: Inpatient Admission lynda Provider: Reid Colindres cha Condition: Stable lynda Problem: new lynda Symptoms: have improved lynda Bed/Room Type: Standard lynda Location: Intensive Care Unit(06/04/25 14:16) Room Assignment: 6-(06/04/25 14:16) Diagnosis - Other cirrhosis of liver lynda - Encephalopathy, unspecified - HEPATIC lynda - Altered mental status, unspecified lynda - Fall on same level, unspecified lynda - Multiple fractures of ribs, left side lynda - Typical atrial flutter lynda Forms: - Medication Reconciliation Form lynda - SBAR form lynda - Leadership Thank You Letter lynda Signatures: Dispatcher [employer] EDMS Natan Rae MD MD cha Blanchard, Shelby, NATANAEL RN ss Emely Olivares RN RN ap3 Corrections: (The following items were deleted from the chart) 09:28 09:28 BASIC METABOLIC PANEL+C.LAB.BRZ ordered. EDMS EDMS 09:28 09:28 CBC+H.LAB.BRZ ordered. EDMS EDMS 09:28 09:28 HEPATIC FUNCTION+C.LAB.BRZ ordered. EDMS EDMS 09:28 09:28 MAGNESIUM+C.LAB.BRZ ordered. EDMS EDMS 09:28 09:28 PROBNP+C.LAB.BRZ ordered. EDMS EDMS 09:28 09:28 PROTIME (+INR)+COAG.LAB.BRZ ordered. EDMS EDMS 09:28 09:28 Troponin High Sensitivity+C.LAB.BRZ ordered. EDMS EDMS 09:28 09:28 LIPASE+C.LAB.BRZ ordered. EDMS EDMS 09:28 09:28 UA Rfx True Cult if indicated+U.LAB.BRZ ordered. EDMS EDMS 09:28 09:28 AMMONIA+C.LAB.BRZ ordered. EDMS EDMS 09:29 09:29 BLOOD CULTURE*+BA.LAB.BRZ ordered. EDMS EDMS 09:29 09:29 LACTATE+C.LAB.BRZ ordered. EDMS EDMS 09:38 09:38 DIGOXIN+C.LAB.BRZ ordered. EDMS EDMS 09:42 09:28 Head C Spine Cap Wo Con+CT.RAD.BRZ ordered. EDMS EDMS 14:16 12:51 Telemetry/MedSurg (Inpatient) [facility] 14:16 12:51 [facility]
--- NOTE | 2025-06-04 12:52 | ER ---
Nurse's Notes [facility] Name: Barney Kang Age: 59 yrs Sex: Male : 1965 Arrival Date: 06/04/2025 Time: 09:15 Bed 8 Private MD: Diagnosis: Other cirrhosis of liver;Encephalopathy, unspecified-HEPATIC;Altered mental status, unspecified;Fall on same level, unspecified;Multiple fractures of ribs, left side;Typical atrial flutter Presentation: 06/04 10:06 Chief complaint: EMS states: they were called to the patients home for a fall and ap3 altered mental status after taking his morning medications. EMS reports the patient was pushing on his stomach and moaning. Coronavirus screen: At this time, the client does not indicate any symptoms associated with coronavirus-19. Ebola Screen: No symptoms or risks identified at this time. Initial Sepsis Screen: Does the patient meet any 2 criteria? HR > 90 bpm. Does the patient have a suspected source of infection? No. Patient's initial sepsis screen is negative. Risk Assessment: Do you want to hurt yourself or someone else? Unable to obtain. Onset of symptoms is unknown. Care prior to arrival: IV initiated. 18 GA, in the right forearm. 10:06 Method Of Arrival: EMS: [facility] ap3 10:06 Acuity: MAGO 2 ap3 Triage Assessment: 10:10 General: Appears uncomfortable, Behavior is restless. Pain: Complains of pain in ap3 abdomen. Neuro: Level of Consciousness is awake, Speech moaning. Cardiovascular: Patient's skin is warm and dry. Respiratory: Airway is patent Respiratory effort is even, unlabored, Respiratory pattern is regular, symmetrical. GI: Abdomen is distended. Historical: - PMHx: 09:43 Atrial fibrillation; CHF; cirrhosis of liver; diabetes mellitus; LIVER CA; Sleep Apnea; ap3 - PSHx: 09:43 Appendectomy; ap3 - Immunization history:: Adult Immunizations up to date. - Infectious Disease History:: Denies. - Family history:: not pertinent. - Social history:: Smoking status: Patient reports use of chewing tobacco. Screenin:11 Abuse screen: Denies threats or abuse. Nutritional screening: unknown. Tuberculosis ap3 screening: No symptoms or risk factors identified. 16:22 [facility] ED Fall Risk Assessment (Adult) History of falling in the last 3 months, ap3 including since admission Yes- fall prone (multiple falls) (3 pts) Confusion or Disorientation Yes (5 pts) Intoxicated or Sedated Yes (3 pts) Impaired Gait Yes (1 pt) Mobility Assist Device Used No (0 pt) Altered Elimination Yes (1 pt) Score/Fall Risk Level 3 or more points = High Risk Oriented to surroundings, Maintained a safe environment, Educated pt \T\ family on fall prevention, incl call for assistance when getting out of bed, Assessed \T\ reinforced patient's understanding of fall precautions, Provided non-skid footwear, Hourly rounding (assess needs \T\ fall precautionary measures) done, Offered frequent toileting (1:1 observation). Vital Signs: 10:06 BP 158 / 91; Pulse 96; Resp 19; Temp 98.3(A); Pulse Ox 97% on R/A; ap3 10:36 BP 122 / 81; Pulse 87; Resp 18; Pulse Ox 96% on R/A; ap3 13:58 BP 122 / 81; Pulse 92; Resp 19; Pulse Ox 97% on R/A; ap3 ED Course: 09:21 Patient arrived in ED. bd 09:25 Natan Rae MD is Attending Physician. lynda 09:39 XRAY Chest (1 view) In Process Unspecified. EDMS 09:43 Emely Olivares, RN is Primary Nurse. ap3 09:43 Initial lab(s) drawn, by me, sent to lab. Inserted saline lock: 22 gauge in right ap3 antecubital area, using aseptic technique. Blood collected. Flushed with 10 mL NS. 09:43 Client placed on continuous cardiac and pulse oximetry monitoring. NIBP monitoring ap3 applied. service station console operator on. Pulse ox on. NIBP on. 10:00 Payne cath inserted, using sterile technique, 16 Fr., by me, balloon inflated, to ap3 gravity drainage, urine specimen collected. returned clear yellow urine. Patient tolerated well. 10:10 Triage completed. ap3 10:12 Arm band placed on right wrist. ap3 10:12 Patient has correct armband on for positive identification. Placed in gown. Bed in low ap3 position. Call light in reach. Side rails up X2. Provided Education on: procedures prior to performing . 10:18 Digoxin Sent. ap3 10:29 Chest Abd Pelvis Wo Con In Process Unspecified. EDMS 10:29 Head C Spine Mpr Wo Con In Process Unspecified. EDMS 12:50 Reid Colindres MD is Hospitalizing Provider. [facility] 16:22 No provider procedures requiring assistance completed. Patient admitted, IV remains in ap3 place. Administered Medications: 10:35 Drug: Pantoprazole IVP 40 mg IVP once Route: IVP; Site: right forearm; ap3 11:20 Follow up: Response: No adverse reaction ap3 10:35 Drug: Rocephin IV 1 grams IV at per protocol once; Given slow IV push per pharmacy ap3 instructions Route: IV; Rate: per protocol; Site: right forearm; 11:20 Follow up: IV Status: Completed infusion ap3 11:20 Drug: Banana Bag - (Multivitamin IV 1 amp, NS 0.9% IV 1000 ml, Thiamine IV 100 mg, ap3 foLIC Acid IVPB 1 mg) IV at 500 ml/hr once Route: IV; Rate: 500 ml/hr; Site: right forearm; 16:23 Follow up: IV Status: Completed infusion ap3 14:09 Drug: Lactulose PO 30 grams 45 ml PO once Volume: 45 ml; Route: PO; ap3 16:23 Follow up: Response: No adverse reaction ap3 14:09 Drug: Digoxin IVP 0.25 mg IVP once Route: IVP; Site: right forearm; ap3 16:23 Follow up: Response: No adverse reaction ap3 Medication: 16:23 VIS not applicable for this client. ap3 Outcome: 12:51 Decision to Hospitalize by Provider. lynda 16:23 Admitted to accompanied by nurse, ap3 16:23 Condition: good 16:23 Discharge instructions given to patient, Instructed on the need for admit, Demonstrated understanding of instructions, 16:24 Patient left the ED. ap3 Signatures: Dispatcher [employer] EDGenevieve Bettencourt Corey, MD MD cha Prokisch, Amanda, RN RN ap3
[2025-06-04] MEDS ORDERED: LACTULOSE 20 GM/30 ML UCUP ONE (14:00)
[2025-06-04] MEDS ORDERED: DIGOXIN 0.25 MG/ML AMP ONE (14:00)
--- NOTE | 2025-06-04 14:26 | P.HP ---
Certification for Inpatient Patient admitted to: Inpatient With expected LOS: >2 Midnights Patient will require the following post-hospital care: None Practitioner: I am a practitioner with admitting privileges, knowledge of patient current condition, hospital course, and medical plan of care. Services: Services provided to patient in accordance with Admission requirements found in Title 42 Section 412.3 of the Code of Federal Regulations Patient History Date of Service: 06/04/25 Primary Care Provider: Darcy Nevarez NP Reason for admission: Hepatic encephalopathy, rib fractures, a flutter History of Present Illness: 59-year-old male with history of decompensated alcoholic cirrhosis, atrial fibrillation, uncertain anticoagulation status, heart failure with reduced ejection fraction, pancreatitis, DM2 presents to the emergency department chief complaint of fall injury and confusion after taking morning meds today, per chart review. At time of exam pt with limited ability to respond to assessment questions. ER Course: Arrived via EMS. Initial assessment showed patient appeared uncomfortable with a distended abdomen. Labs were drawn including blood cultures. Payne catheter was inserted. Patient underwent imaging including chest x-ray, CT abdomen pelvis, head CT. Chest x-ray and head CT nonconcerning. CT CAP shows acute and chronic rib fractures. Additionally, evidence of cirrhosis with splenomegaly. He is given Rocephin IV 1 g for SBP prophylaxis. He was also given pantoprazole IV 40 mg and started on banana bag, including thiamine and folic acid. Allergies No Known Allergies Allergy (Verified 04/14/25 17:13) Home Medications: Atorvastatin Calcium [Lipitor] 10 mg PO BEDTIME 04/15/25 Furosemide 1 tab PO DAILY 04/15/25 Glimepiride 1 tab PO DAILY 04/15/25 Potassium Chloride 20 meq PO DAILY 04/15/25 Spironolactone 1 tab PO DAILY 04/15/25 carvediloL [Carvedilol] 1 tab PO DAILY 04/15/25 glyBURIDE [Glyburide] 1 tab PO DAILY 04/15/25 lisinopriL [Lisinopril] 1 tab PO DAILY 04/15/25 - Past Medical/Surgical History Has patient received pneumonia vaccine in the past: No Diabetic: Yes -: Liver cancer/cirrhosis -: CHFsystolic -: Atrial fibrillation -: NIDDM -: LINDSEY Past Surgical History: Reviewed- Non-Contributory -: Appendectomy Psychosocial/ Personal History: Currently living at home with his ex- - Family History Mother -: Cancer Notes: Bladder CA Father -: Heart disease - Social History Smoking Status: Unknown if ever smoked Alcohol use: No CD- Drugs: No Caffeine use: No Place of Residence: Home Review of Systems is unable to be obtained Physical Examination - Physical Exam General: Oriented x1, Cooperative, Confused, Obese HEENT: Atraumatic, Normocephalic, PERRLA, Mucous membr. moist/pink Neck: Supple, 2+ carotid pulse no bruit, JVD not distended, No Thyromegaly Respiratory: Clear to auscultation bilaterally, Normal air movement, Diminished (bases) Cardiovascular: No edema, Normal pulses, Irregular heart rate/rhythm Capillary refill: <2 Seconds Gastrointestinal: Normal bowel sounds, Other (umbilicus Varicies), Distended, Hepatosplenomegaly, Tenderness (RUQ, LUQ) Musculoskeletal: No clubbing, No swelling, No contractures, No erythema, No tenderness, No warmth Integumentary: No rashes, No breakdown, No significant lesion, No tenderness/swelling, No erythema, No warmth, No cyanosis, Other (scant petichae) Neurological: Normal tone, Sensation intact, Abnormal speech, Abnormal affect Lymphatics: No axilla or inguinal lymphadenopathy Urinary: Payne catheter External genitalia: Deferred Rectal: Deferred - Studies Laboratory Data (last 24 hrs) 06/04/25 06/04/25 06/04/25 10:17 09:34 09:34 WBC 8.10 Hgb 13.3 L Hct 39.1 L Plt Count 105 L PT 17.4 H INR 1.56 Sodium 134 L Potassium 3.9 BUN 23 H Creatinine 0.91 Glucose 167 H Magnesium 2.2 Total Bilirubin 1.7 H AST 83 H ALT 86 H Alkaline Phosphatase 120 H Lipase 53 Assessment and Plan - Plan Assessment: 59-year-old male with history of decompensated alcoholic cirrhosis, atrial fibrillation, uncertain anticoagulation, heart failure with reduced ejection fraction, pancreatitis, DM2 presents to the emergency department chief plaint of fall injury and confusion admitted for treatment for hepatic encephalopathy, pain control for rib fractures, atrial flutter. Plan: Alcoholic liver cirrhosis Hepatic encephalopathy Liver cancer -Likely related to medication non compliance. -Head CT personally reviewed, no acute pathology. - No evidence of ascites on CT CAP, consider liver ultrasound -Urine drug screen ordered, Will follow-up -Ethanol level ordered, will follow -PT 17.5/INR 1.56 - Lactate 1.4, lipase 53 NH3 99 Blood cultures drawn, will follow-up -SBP low concern, due to no ascites observed on CT -Lactulose 20 mg TID and titrate to have 2-3 bowel movements/day. Increase to 30 as needed. Home meds furosemide, spironolactone daily. Restart once med rec complete. ground level fall Rib fractures Acute pain - Chest xray with no acute intrathoracic abnormalities -CT chest abdomen pelvis reviewed showing left lateral fractures rib 57. Evidence of left-sided healed rib fractures. -Patient denies any dizziness, syncope, presyncopal event. -TSH, PTH, VitaminD, PO4 ordered, will follow. -TSH___, PTH___, PO4___, Vitamin D___. -Multimodal pain control with Ibuprofen, [place] 5 mg Q 4 hours as needed for pain, consider IV pain meds PRN once mentation improves Atrial flutter History of A-fib Troponin 10.3, will trend BNP 76 Dig level 0.6, low Per chart review home meds include: Carvedilol 6.25 mg daily, furosemide 80 mg daily, lisinopril 5 mg daily, spironolactone 25 mg daily. Resume once med rec complete. Telemetry monitored Discussed with cardiology who was consulted and following Chronic Normocytic Anemia: Chronic/stable -Hb: 13.3 , was 12.7 on last admission. -No sign of active bleed. -Ordered CBC for tomorrow. -Will continue to trend. -Transfuse if symptomatic or <7. Hyponatremia, mild Sodium 134 Monitor BMP [id number] diabetes mellitus type 2: ACHS Accu-Cheks Insulin sliding scale Home meds glimepiride, glipizide held while inpatient and lieu of sliding scale. Nonobstructing renal calculi CT CAP 06/04 shows bilateral nonobstructing calculi Largest left 7 mm of left lower pole Largest right 6 mm the right interpolar region Negative hydronephrosis Continue to monitor Hyperlipidemia: -Continue home atorvastatin 10 mg once daily once med rec complete Hypokalemia, chronic Chart review shows home med potassium chloride 20 mill equivalents daily. Resume once med rec complete. Dispo: Improvement in mentation Anticipate home and no need versus [facility] for medication management Discharge Plan: Home Plan to discharge in: 48 Hours - Advance Directives Does patient have a Living Will: No Does patient have a Durable POA for Healthcare: No - Code Status/Comfort Care Code Status Assessed: Yes (Full code) Critical Care: No
[2025-06-04 16:50] VITALS: BMI 28.8
[2025-06-04] MEDS: HYDROCODONE/APAP 5/325 MG TAB PO PRN (20:18)
[2025-06-04] MEDS: LACTULOSE 20 GM/30 ML UCUP PO SCH (20:24)
[2025-06-04] MEDS: MORPHINE 2 MG/ML SYR IV PRN (20:51)
[2025-06-04 22:29] LABS: Thyroid Stimulating Hormone 3.64 uIU/mL (0.358-3.740)
[2025-06-05 05:44] LABS: Absolute Lymphocytes (CBC) 1.0 K/uL (0.7-4.9); Hematocrit 36.1 % (39.6-49.0); Hemoglobin 12.6 g/dL (13.6-17.9); MCH 33.2 pg (27.0-35.0); MCHC 34.8 g/dL (32.0-36.0); MCV 95.3 fL (80-100); MPV 8.7 fL (7.6-11.3); Nucleated RBC Absolute Count 0.0 (0-0); Nucleated Red Blood Cells % 0.1 % (0-0); RBC Red Blood Cell Count 3.79 M/uL (4.33-5.43); White Blood Count 5.10 thou/uL (4.3-10.9)
[2025-06-05 05:48] LABS: PT Prothrombin Time 17.6 SECONDS (10-13.0); Protime INR 1.58
[2025-06-05 06:03] LABS: ALT/SGPT 82.0 U/L (16-61); AST/SGOT 75.0 U/L (15-37); Albumin 2.5 g/dL (3.4-5.0); Albumin/Globulin Ratio 0.4 (1.1-1.8); Alkaline Phosphatase 113.0 U/L (45-117); Anion Gap 9.8 mEq/L (5.0-15.0); BUN Blood Urea Nitrogen 18.0 mg/dL (7-18); Bilirubin Indirect, Calculated 1.5 mg/dL (0.2-0.8); Globulin 6.6 g/dL (2.3-3.5); Glucose Level 160.0 mg/dL (74-106); Magnesium 2.2 mg/dL (1.6-2.4); Potassium 3.8 mEq/L (3.5-5.1)
--- NOTE | 2025-06-05 07:47 | P.PN ---
Subjective Date of Service: 06/05/25 Primary Care Provider: Darcy Nevarez NP Chief Complaint: Hepatic encephalopathy, rib fractures, a flutter Subjective: Improving (marginally) Patient assessed sitting up in bed in no apparent distress with RN at the bedside. Patient continues to have difficulty verbalizing answers and is slow to respond. With encouragement and reinforcement patient able to answer orientation questions appropriately. Endorses generalized body pain worse with right ribs and right shoulder. Otherwise denies acute complaints. Discussed our concerns about Payne catheter inhibiting renal calculi clearance. Additionally, she states that patient has been complaining of pain in the back. Reviewed no clinical indication for Payne and likely placed by ED for safety with urination as he is not retaining and calculi are not obstructive. Cleared to DC Payne at her discretion when she feels is appropriate and safe. No bowel movements overnight. Plan to increase lactulose 30 - 3 times daily. Patient already on morphine and [place] for pain. Adding lidocaine patches for rib pain. Review of Systems 10-point ROS is otherwise unremarkable Physical Examination - Vital Signs Temperature: 97.8 F Blood Pressure: 115/77 Pulse: 93 Respirations: 13 Pulse Ox (%): 95 - Physical Exam General: Oriented x3, Mild distress, Confused HEENT: Atraumatic, Normocephalic, Mucous membr. moist/pink Neck: Supple, 2+ carotid pulse no bruit, JVD not distended, No Thyromegaly Respiratory: Clear to auscultation bilaterally, Normal air movement Cardiovascular: No edema, Normal pulses, Irregular heart rate/rhythm Capillary refill: Brisk Gastrointestinal: Normal bowel sounds, Soft and benign, Non-distended Musculoskeletal: No clubbing, No swelling, No contractures Integumentary: No rashes, No breakdown, No significant lesion Neurological: Normal tone, Sensation intact, Abnormal speech (Difficult understand), Abnormal strength (BUE, BLE not assessed), Abnormal affect (Flat) Urinary: Payne catheter External genitalia: Deferred Rectal: Deferred - Studies Laboratory Data (last 24 hrs) 06/04/25 06/04/25 06/04/25 10:17 09:34 09:34 WBC 8.10 Hgb 13.3 L Hct 39.1 L Plt Count 105 L PT 17.4 H INR 1.56 Sodium 134 L Potassium 3.9 BUN 23 H Creatinine 0.91 Glucose 167 H Magnesium 2.2 Total Bilirubin 1.7 H AST 83 H ALT 86 H Alkaline Phosphatase 120 H Lipase 53 Medications List Reviewed: Yes Assessment And Plan - Plan Assessment: 59-year-old male with history of decompensated alcoholic cirrhosis, atrial fibrillation, uncertain anticoagulation, heart failure with reduced ejection fraction, pancreatitis, DM2 presents to the emergency department chief plaint of fall injury and confusion admitted for treatment for hepatic encephalopathy, pain control for rib fractures, atrial flutter. Plan: Alcoholic liver cirrhosis Hepatic encephalopathy Liver cancer -Likely related to medication non compliance. -Head CT personally reviewed, no acute pathology. - No evidence of ascites on CT CAP, consider liver ultrasound -Urine drug screen ordered, Will follow-up -Ethanol level < 10 NH3 99 Blood cultures drawn, will follow-up -SBP low concern, due to no ascites observed on CT -Lactulose increased to 30 mg TID and titrate to have 2-3 bowel movements/day due to no bowel movement since admission. Consider enema if no bowel movement this afternoon. Home meds furosemide, spironolactone daily. Restart once med rec complete. ground level fall Rib fractures Acute pain - Chest xray with no acute intrathoracic abnormalities -CT chest abdomen pelvis reviewed showing left lateral fractures rib 57. Evidence of left-sided healed rib fractures. -Patient denies any dizziness, syncope, presyncopal event. -TSH, PTH, VitaminD, PO4 ordered, will follow. -TSH_3.6_, PTH__32_, PO4_3.9__, Vitamin D___. -Multimodal pain control with Ibuprofen, [place] 5 mg Q 4 hours as needed for pain, consider IV pain meds PRN once mentation improves Atrial flutter History of A-fib Troponin 10.3, will trend BNP 76 Dig level 0.6, low Per chart review home meds include: Restartedcarvedilol 6.25 mg daily , furosemide 80 mg daily: Still heldlisinopril 5 mg daily, spironolactone 25 mg daily. Resume once BP improves Telemetry monitored Discussed with cardiology who was consulted and following Chronic Normocytic Anemia: Chronic/stable -Hb: 12.6 , was 12.7 on last admission. -No sign of active bleed. -Ordered CBC for tomorrow. -Will continue to trend. -Transfuse if symptomatic or <7. Hyponatremia, mild, resolved Sodium 137 Monitor BMP Vro-[id number] diabetes mellitus type 2: ACHS Accu-Cheks Insulin sliding scale Home meds glimepiride, glipizide held while inpatient and lieu of sliding scale. Nonobstructing renal calculi CT CAP 06/04 shows bilateral nonobstructing calculi Largest left 7 mm of left lower pole Largest right 6 mm the right interpolar region Negative hydronephrosis Continue to monitor Hyperlipidemia: -Continue home atorvastatin 10 mg once daily once med rec complete Hypokalemia, chronic Potassium chloride 20 mEq daily Dispo: Improvement in mentation Anticipate home and no need versus [facility] for medication management Discharge Plan: Home Plan to discharge in: 48 Hours - Code Status/Comfort Care Code Status Assessed: No Critical Care: No
[2025-06-05] MEDS: THIAMINE 200 MG/2 ML INJ IVP SCH (08:00)
[2025-06-05] MEDS: ENOXAPARIN 40 MG/0.4 ML SQ SCH (08:00)
[2025-06-05] MEDS: LACTULOSE 20 GM/30 ML UCUP PO SCH (08:00)
[2025-06-05] MEDS: POTASSIUM 25 MEQ EFFERV TAB PO ONE (08:01)
[2025-06-05] MEDS: FUROSEMIDE 40 MG TABLET PO SCH (08:07)
[2025-06-05] MEDS: LIDOCAINE 4% PATCH TOP SCH (08:08)
[2025-06-05] MEDS ORDERED: FOLIC ACID 5 MG/ML VIAL IVP SCH (09:00)
[2025-06-05] MEDS ORDERED: FOLIC ACID 1 MG in NA CHLORIDE 0.9% 50 ML IV SCH (09:00)
--- NOTE | 2025-06-05 11:27 | P.CNS ---
Date of Consult: 06/05/25 Primary Care Provider: Darcy Nevarez NP Chief Complaint: Hepatic encephalopathy, rib fractures, a flutter History of Present Illness: Patient with PMH of AF, liver cirrhosis, presented with AMS, hepatic encephalopathy, cardiology were consulted for AF, patient hard to wake, able to answer questions by yes or no, denies chest pain, no palpitations, no syncope. Allergies No Known Allergies Allergy (Verified 04/14/25 17:13) Home medications list reviewed: Yes Home Medications: Atorvastatin Calcium [Lipitor] 10 mg PO BEDTIME 04/15/25 Furosemide 1 tab PO DAILY 04/15/25 Glimepiride 1 tab PO DAILY 04/15/25 Potassium Chloride 20 meq PO DAILY 04/15/25 Spironolactone 1 tab PO DAILY 04/15/25 carvediloL [Carvedilol] 1 tab PO DAILY 04/15/25 glyBURIDE [Glyburide] 1 tab PO DAILY 04/15/25 lisinopriL [Lisinopril] 1 tab PO DAILY 04/15/25 - Past Medical/Surgical History Diabetic: Yes -: Liver cancer/cirrhosis -: CHFsystolic -: Atrial fibrillation -: NIDDM -: LINDSEY -: Appendectomy Psychosocial/ Personal History: Currently living at home with his ex- - Family History Mother Medical History: Cancer Notes: Bladder CA Father Medical History: Heart disease - Social History Alcohol use: No CD- Drugs: No Caffeine use: No Place of Residence: Home Review of Systems 10-point ROS is otherwise unremarkable Physical Examination Temp Pulse Resp BP Pulse Ox 97.8 F 82 14 103/70 95 06/05/25 08:26 06/05/25 11:00 06/05/25 11:00 06/05/25 11:00 06/05/25 11:00 General: Alert, In no apparent distress HEENT: Atraumatic, PERRLA, Mucous membr. moist/pink, EOMI, Sclerae nonicteric Neck: Supple, 2+ carotid pulse no bruit, No LAD, Without JVD or thyroid abnormality Respiratory: Clear to auscultation bilaterally, Normal air movement Cardiovascular: Regular rate/rhythm, Normal S1 S2 Gastrointestinal: Normal bowel sounds, No tenderness Musculoskeletal: No tenderness Integumentary: No rashes Neurological: Normal gait, Normal speech, Normal tone, Normal affect Lymphatics: No axilla or inguinal lymphadenopathy - Problems (1) Atrial fibrillation Current Visit: Yes Status: Acute Plan: patient with advnaced liver cirrhosis, low Plt count and not sure if he got esophageal varices no anticoagulation for now change coreg to lopressor 25 mg po BID Continue to monitor on tele (2) Liver cirrhosis Current Visit: Yes Status: Acute Plan: continue Lasix 80 mg daily continue Aldactone 25 mg daily
[2025-06-05] MEDS: INSULIN REGULAR (HUMAN) 100 UNIT/ML SQ SCH (16:20)
[2025-06-05] MEDS: BISACODYL 10 MG RECTAL SUPP PR ONE (19:00)
[2025-06-06 05:12] LABS: Absolute Lymphocytes (CBC) 0.6 K/uL (0.7-4.9); Hematocrit 34.4 % (39.6-49.0); Hemoglobin 12.1 g/dL (13.6-17.9); MCH 33.4 pg (27.0-35.0); MCHC 35.3 g/dL (32.0-36.0); MCV 94.7 fL (80-100); MPV 8.6 fL (7.6-11.3); Nucleated RBC Absolute Count 0.0 (0-0); Nucleated Red Blood Cells % 0.1 % (0-0); RBC Red Blood Cell Count 3.63 M/uL (4.33-5.43); White Blood Count 6.00 thou/uL (4.3-10.9)
[2025-06-06 05:15] LABS: PT Prothrombin Time 17.6 SECONDS (10-13.0); Protime INR 1.58
[2025-06-06 05:24] LABS: ALT/SGPT 70.0 U/L (16-61); AST/SGOT 61.0 U/L (15-37); Albumin 2.3 g/dL (3.4-5.0); Albumin/Globulin Ratio 0.4 (1.1-1.8); Alkaline Phosphatase 112.0 U/L (45-117); Anion Gap 8.6 mEq/L (5.0-15.0); BUN Blood Urea Nitrogen 16.0 mg/dL (7-18); Bilirubin Indirect, Calculated 1.2 mg/dL (0.2-0.8); Globulin 6.2 g/dL (2.3-3.5); Glucose Level 238.0 mg/dL (74-106); Magnesium 2.0 mg/dL (1.6-2.4); Potassium 3.6 mEq/L (3.5-5.1)
[2025-06-06 05:39] LABS: Blood Morphology Comment NOT SEEN (NOT SEEN); White Blood Cell Scan OK (OK)
--- NOTE | 2025-06-06 08:58 | P.HP ---
Date of Service: 06/06/25 Subjective Date of Service: 06/06/25 Primary Care Provider: Darcy Nevarez NP Chief Complaint: Hepatic encephalopathy, rib fractures, a flutter Subjective: Improving (marginally) Assessed patient sitting up in bed today on room air in no apparent distress. Patient endorses still feeling a bit weak and having rib pain, right sided that is worse with movement. Denies nausea, vomiting, bleeding. Endorses having large bowel movement x 1 last night. Reviewed plan to continue lactulose 3 times a day and downgrade from ICU to [facility]. Review of Systems 10-point ROS is otherwise unremarkable Physical Examination - Vital Signs Temperature: 97.0 F Blood Pressure: 113/62 Pulse: 95 Respirations: 13 Pulse Ox (%): 95 - Physical Exam General: Oriented x3, slow responses, but appropriate HEENT: Atraumatic, Normocephalic, Mucous membr. moist/pink Neck: Supple, 2+ carotid pulse no bruit, JVD not distended, No Thyromegaly Respiratory: Clear to auscultation bilaterally, Normal air movement Cardiovascular: No edema, Normal pulses, Irregular heart rate/rhythm Capillary refill: Brisk Gastrointestinal: Normal bowel sounds, Soft and benign, Non-distended Musculoskeletal: No clubbing, No swelling, No contractures Integumentary: No rashes, No breakdown, No significant lesion Neurological: Normal tone, Sensation intact, Abnormal speech (Difficult understand), Abnormal strength (BUE, BLE not assessed), Abnormal affect (Flat) Urinary: Payne catheter External genitalia: Deferred Rectal: Deferred - Studies Laboratory Data (last 24 hrs) 06/06/25 WBC 6.0 Hgb 12.1 L Hct 34.4 L Plt Count 81 L PT 17.6 INR 1.58 Sodium 135 Potassium 3.6 BUN 16 Creatinine 0.85 Glucose 194 Magnesium 2.0 Total Bilirubin 2.0 AST 61 ALT 70 Alkaline Phosphatase 112 Medications List Reviewed: Yes Assessment And Plan - Plan Assessment: 59-year-old male with history of decompensated alcoholic cirrhosis, atrial fibrillation, uncertain anticoagulation, heart failure with reduced ejection fraction, pancreatitis, DM2 presents to the emergency department chief plaint of fall injury and confusion admitted for treatment for hepatic encephalopathy, pain control for rib fractures, atrial flutter. Plan: Alcoholic liver cirrhosis Hepatic encephalopathy Liver cancer -Likely related to medication non compliance. -Head CT personally reviewed, no acute pathology. - No evidence of ascites on CT CAP -Urine drug screen ordered, Will follow-up -Ethanol level < 10 NH3 99 on admission Blood cultures NGTD -SBP low concern, due to no ascites observed on CT, no infectious signs and symptoms -Lactulose continued at 30 mg TID and titrate to have 2-3 bowel movements/day. 1 bowel movement previous day Home meds furosemide 80 mg, spironolactone 25 mg daily continued. ground level fall Rib fractures Acute pain - Chest xray with no acute intrathoracic abnormalities -CT chest abdomen pelvis reviewed showing left lateral fractures rib 57. Evidence of left-sided healed rib fractures. -Patient denies any dizziness, syncope, presyncopal event. -Multimodal pain control with Ibuprofen as needed, Robaxin 750 mg 3 times daily scheduled, [place] 5 mg Q 4 hours as needed for pain, DC IV morphine. Atrial flutter History of A-fib Troponin 10.3, flat trend BNP 76 Dig level 0.6, low Per chart review home meds include: Restartedcarvedilol 6.25 mg daily , furosemide 80 mg daily, spironolactone 25 mg daily: Still heldlisinopril 5 mg daily, Resume once BP improves Telemetry monitored Discussed with cardiology who recommends changing carvedilol to Lopressor 25 mg twice daily. Chronic Normocytic Anemia: Chronic/stable -Hb: 12.1 , was 12.7 on last admission. -No sign of active bleed. -Ordered CBC for tomorrow. -Will continue to trend. -Transfuse if symptomatic or <7. Hyponatremia, mild, resolved Sodium 135 Monitor BMP [id number] diabetes mellitus type 2: ACHS Accu-Cheks Insulin sliding scale Home meds glimepiride, glipizide held while inpatient and lieu of sliding scale. Nonobstructing renal calculi CT CAP 06/04 shows bilateral nonobstructing calculi Largest left 7 mm of left lower pole Largest right 6 mm the right interpolar region Negative hydronephrosis Continue to monitor Hyperlipidemia: -Continue home atorvastatin 10 mg Hypokalemia, chronic Potassium chloride 20 mEq daily Home regimen, given potassium chloride 25 mEq daily while inpatient Dispo: Improvement in mentation Anticipate home Discharge Plan: Home Plan to discharge in: 24 Hours - Code Status/Comfort Care Code Status Assessed: No Critical Care: No
[2025-06-06] MEDS: SPIRONOLACTONE 25 MG TABLET PO SCH (09:24)
[2025-06-06] MEDS: METOPROLOL TAR 25 MG TAB PO SCH (11:06)
[2025-06-06] MEDS: ATORVASTATIN 10 MG TAB PO SCH (20:44)
[2025-06-07 00:45] VITALS: O2SAT 92
[2025-06-07 05:57] LABS: Absolute Lymphocytes (CBC) 1.0 K/uL (0.7-4.9); Hematocrit 34.3 % (39.6-49.0); Hemoglobin 11.9 g/dL (13.6-17.9); MCH 33.1 pg (27.0-35.0); MCHC 34.7 g/dL (32.0-36.0); MCV 95.4 fL (80-100); MPV 8.6 fL (7.6-11.3); Nucleated RBC Absolute Count 0.0 (0-0); Nucleated Red Blood Cells % 0.1 % (0-0); RBC Red Blood Cell Count 3.60 M/uL (4.33-5.43); White Blood Count 6.80 thou/uL (4.3-10.9)
[2025-06-07 06:05] LABS: PT Prothrombin Time 19.2 SECONDS (10-13.0); Protime INR 1.73
[2025-06-07 06:22] LABS: ALT/SGPT 72.0 U/L (16-61); AST/SGOT 54.0 U/L (15-37); Albumin 2.2 g/dL (3.4-5.0); Albumin/Globulin Ratio 0.4 (1.1-1.8); Alkaline Phosphatase 102.0 U/L (45-117); Anion Gap 8.7 mEq/L (5.0-15.0); BUN Blood Urea Nitrogen 16.0 mg/dL (7-18); Bilirubin Indirect, Calculated 1.1 mg/dL (0.2-0.8); Globulin 6.0 g/dL (2.3-3.5); Glucose Level 256.0 mg/dL (74-106); Magnesium 1.9 mg/dL (1.6-2.4); Potassium 3.7 mEq/L (3.5-5.1)
[2025-06-07] MEDS: SODIUM CHLORIDE IRRIG SOLUTION 0 ML IRR ONE (06:37)
[2025-06-07] MEDS: POTASSIUM 25 MEQ EFFERV TAB PO ONE (08:33)
--- NOTE | 2025-06-07 09:22 | P.PN ---
Date of Service: 06/07/25 Subjective Primary Care Provider: Darcy Nevarez NP Chief Complaint: Hepatic encephalopathy, rib fractures, a flutter Subjective: Improving Assessed patient lying in bed on room air in no apparent distress. Patient endorses feeling better. Received notification from bedside RN that there was episode of penile bleeding on removal of Payne catheter that improved using. Denies fevers, chills, abdominal pain, NVD. Patient currently denying any penile discomfort or further bleeding, but admits burning with urination since catheter has has been removed. Review of Systems 10-point ROS is otherwise unremarkable Physical Examination - Vital Signs Temperature: 98.1 F Blood Pressure: 90/55 Pulse: 66, atrial fibrillation Respirations: 18 Pulse Ox (%): 95 - Physical Exam General: Oriented x3, slow responses, but appropriate HEENT: Atraumatic, Normocephalic, Mucous membr. moist/pink Neck: Supple, 2+ carotid pulse no bruit, JVD not distended, No Thyromegaly Respiratory: Clear to auscultation bilaterally, Normal air movement Cardiovascular: No edema, Normal pulses, Irregular heart rate/rhythm Capillary refill: Brisk Gastrointestinal: Normal bowel sounds, Soft and benign, Non-distended Musculoskeletal: No clubbing, No swelling, No contractures Integumentary: No rashes, No breakdown, No significant lesion Neurological: Normal tone, Sensation intact, Abnormal speech (Difficult understand), Abnormal strength (BUE, BLE not assessed), Abnormal affect (Flat) Urinary: S/p catheter removal, urethral opening erythema mild External genitalia: Deferred Rectal: Deferred - Studies Laboratory Data (last 24 hrs) 06/06/25 WBC 6.8 Hgb 11.9 L Hct 34.3 L Plt Count 73 L PT 19.2 INR 1.73 Sodium 135 Potassium 3.7 BUN 16 Creatinine 0.98 Glucose 256 Magnesium 1.9 Total Bilirubin 1.9 AST 54 ALT 72 Alkaline Phosphatase 102 Medications List Reviewed: Yes Assessment And Plan - Plan Assessment: 59-year-old male with history of decompensated alcoholic cirrhosis, atrial fibrillation, uncertain anticoagulation, heart failure with reduced ejection fraction, pancreatitis, DM2 presents to the emergency department chief plaint of fall injury and confusion admitted for treatment for hepatic encephalopathy, pain control for rib fractures, atrial flutter. Plan: Urinary retention Hematuria Failed void trial PVR 7 hours after previous void 420 cc Hematuria noted by nursing at time Payne discontinued Discussed with urology who recommends placing coud cath 20 [place] two-way Payne, allowing initial decompression, irrigating with 60 cc catheter tip syringe with 500 cc of normal saline to remove clot in the bladder so it prevents future clogging Monitor for resolution of hematuria Monitor CBC Urinalysis with reflex to culture ordered Reattempt void trial when appropriate Alcoholic liver cirrhosis, chronic stable Hepatic encephalopathy, resolved Liver cancer -Likely related to medication non compliance. -Head CT personally reviewed, no acute pathology. - No evidence of ascites on CT CAP -Urine drug screen ordered, Will follow-up -Ethanol level < 10 NH3 99 on admission Blood cultures NGTD -SBP low concern, due to no ascites observed on CT, no infectious signs and symptoms -Lactulose continued at 30 mg TID and titrate to have 2-3 bowel movements/day. 1 bowel movement previous day Home meds furosemide 80 mg, spironolactone 25 mg daily continued. ground level fall Rib fractures Acute pain, improved - Chest xray with no acute intrathoracic abnormalities -CT chest abdomen pelvis reviewed showing left lateral fractures rib 57. Evidence of left-sided healed rib fractures. -Patient denies any dizziness, syncope, presyncopal event. -Multimodal pain control with Ibuprofen as needed, Robaxin 750 mg 3 times daily scheduled, [place] 5 mg Q 4 hours as needed for pain, DC IV morphine. Atrial flutter, resolved History of A-fib, chronic stable Troponin 10.3, flat trend BNP 76 Dig level 0.6, low Per chart review home meds include: Restartedcarvedilol 6.25 mg daily , furosemide 80 mg daily, spironolactone 25 mg daily: Still heldlisinopril 5 mg daily, Resume once BP improves Telemetry monitored Discussed with cardiology who recommends changing carvedilol to Lopressor 25 mg twice daily. Chronic Normocytic Anemia: Chronic/stable -Hb: 12.1 , was 12.7 on last admission. -No sign of active bleed. -Ordered CBC for tomorrow. -Will continue to trend. -Transfuse if symptomatic or <7. Hyponatremia, mild, resolved Sodium 135 Monitor BMP [id number] diabetes mellitus type 2: ACHS Accu-Cheks Insulin sliding scale Home meds glimepiride, glipizide held while inpatient and lieu of sliding scale. Nonobstructing renal calculi CT CAP 06/04 shows bilateral nonobstructing calculi Largest left 7 mm of left lower pole Largest right 6 mm the right interpolar region Negative hydronephrosis Continue to monitor Hyperlipidemia: -Continue home atorvastatin 10 mg Hypokalemia, chronic Potassium chloride 20 mEq daily Home regimen, given potassium chloride 25 mEq daily while inpatient Dispo: Resolution of urinary retention and hematuria Anticipate home Discharge Plan: Home Plan to discharge in: 24 Hours - Code Status/Comfort Care Code Status Assessed: No Critical Care: No
[2025-06-07] MEDS: LIDOCAINE JELLY 2% 5 ML SYRINGE TOP ONE (10:53)
[2025-06-07 13:21] LABS: Sqamous Epithelial None Seen /HPF (None Seen); Urine Crystals Unidentified Few /HPF (None Seen); Urine Culture Reflex Order REFLEXED; Urine Microscopic Reflex YN ORDER UMIC; Urine WBC Clump Rare /HPF (None Seen)
[2025-06-08 06:26] LABS: Anion Gap 8.6 mEq/L (5.0-15.0); BUN Blood Urea Nitrogen 11.0 mg/dL (7-18); Glucose Level 199.0 mg/dL (74-106); Potassium 3.6 mEq/L (3.5-5.1)
[2025-06-08] MEDS: CEFTRIAXONE 2,000 MG in NA CHLORIDE 0.9% 100 ML IV SCH (09:19)
[2025-06-08] MEDS: POTASSIUM CL SA 10 MEQ TAB PO ONE (09:20)
[2025-06-08] MEDS: IBUPROFEN 600 MG TAB PO PRN (12:29)
--- NOTE | 2025-06-08 13:46 | P.DS ---
Admission Date: 06/04/25 Discharge Date: 06/08/25 Primary Care Provider: Darcy Nevarez NP Disposition: ROUTINE DISCHARGE Discharge Condition: GOOD Reason for Admission: Hepatic encephalopathy, rib fractures, a flutter Consultations: Cardiology Procedures: None Brief History of Present Illness: 59-year-old male with history of decompensated alcoholic cirrhosis, atrial fibrillation, uncertain anticoagulation status, heart failure with reduced ejection fraction, pancreatitis, DM2 presents to the emergency department chief complaint of fall injury and confusion after taking morning meds today, per chart review. At time of exam pt with limited ability to respond to assessment questions. Hospital Course: 59-year-old male with history of decompensated alcoholic cirrhosis, atrial fibrillation, uncertain anticoagulation status, heart failure with reduced ejection fraction, pancreatitis, DM2 present was admitted for acute hepatic encephalopathy. He arrived via EMS and appeared uncomfortable with a distended abdomen. His initial workup included laboratory testing, blood cultures, imaging and Payne insertion. He was given 1 g Rocephin IV in the ED for SBP prophylactics and pantoprazole IV 40 mg. Additionally, he received a banana bag with thiamine and folic acid. Alcoholic liver cirrhosis, chronic stable Hepatic encephalopathy, resolved Splenomegaly Liver cancer Patient underwent a CT of the head with no acute pathology explaining acute encephalopathy. Urine drug screen, ethanol level was ordered and nonconcerning. UA negative for infection on admission. An ammonia level was drawn and noted to be 99. Blood cultures were drawn with no growth during hospital stay. SBP was noted to be a low concern due to no ascites observed on CT, no infectious signs and symptoms, and thus far negative blood cultures. Patient was restarted on lactulose 30 mg 3 times daily to induce bowel movement. He also required a bisacodyl suppository, after which he did produce a large bowel movement. He was restarted on his home medication regimen for alcoholic liver disease including furosemide 80 mg daily and spironolactone 25 mg daily. Hospitalization is likely related to lack of understanding about lactulose medication regimen. Provided teaching to the patient regarding having a breezy eduled lactulose dose, but adjusting that dose up and down in response to the number of bowel movements that he is having daily. It is evident the patient is trying to comprehended and create a plan for himself to follow at home, but more teaching is likely necessary. Urinary retention Hematuria urinary Tract Infection: UTI Payne was inserted in the ED while he was in an encephalopathic state. Upon attempt to remove the Payne catheter on 06/07 patient was noted to have bleeding from the urethra. The bleeding continued to be small but active. Until recently he failed a PVR 7 hours after Payne removal. Bladder scan showed 420 cc postvoid residual. The patient was discussed with urologist who recommended placing a coud cath 20 [place] to a Payne to allow for initial decompression and irrigating with 60 cc catheter tip syringe with 500 cc of normal saline to remove clot in the bladder so prevents future clogging. Acutely catheter was not available, however, urology plan otherwise followed. Payne catheter was removed on day of discharge 06/08 without bleeding. Patient was able to void post removal. A follow-up urinalysis was collected due to patient's discomfort and Payne catheter complications requiring reinsertion. This sample from the new catheter was positive for leukocytes. Patient was started on ceftriaxone 2 g IV daily. He received 2 doses of this and will continue on Augmentin twice daily upon discharge. ground level fall Rib fractures Acute pain, improved It was discovered the patient suffered a ground-level fall at home prior to coming in. There is also evidence he had a previous fall on the left side. Initial x-ray showed no acute intrathoracic abnormalities. However, follow-up chest CT abdomen pelvis showed left lateral fractures in ribs 5 through 7 with evidence of fractures on the opposite side that were not healing status. Although patient's history is questionable, he denies any dizziness, syncope, presyncopal event preceding the fall. During exam patient stated that pain was controlled with ibuprofen as needed, Robaxin-750 milligrams 3 times daily, and [place] 5 mg every 4 hours as needed for pain. Initially he required IV morphine, however that was discontinued and pain was still well-controlled. Atrial flutter, resolved History of A-fib, chronic stable On arrival in the ED EKG was collected showing that the patient is in a flutter. He has a history of chronic A-fib that is stable. His troponin was 10.3. This was trended and remained a flat trend. BNP was 76 on arrival. Digoxin level is low at 0.6. Home medications include carvedilol 6.25 mg daily, furosemide 80 mg daily, spironolactone 25 mg daily, lisinopril 5 mg daily. Home medications were resumed as appropriate. Cardiology was consulted and recommended discontinuing Coreg and lieu of metoprolol 25 mg twice daily. Changes made and patient tolerated medication well. Chronic Normocytic Anemia: Chronic/stable This is not an active problem during the hospitalization. Patient remained with hemoglobin between 12 and 13, in line with his chronic trend. Hyponatremia, mild, resolved Patient was mildly hyponatremic on arrival. This resolved with IV fluid rehydration and remained within normal limits for the remainder of the hos pitalization. [id number] diabetes mellitus type 2: Patient has chronic type 2 diabetes. His home medications include glimepiride, glipizidethese medications were held while he was inpatient. Alternatively, he was maintained with sliding scale insulin and ACHS Accu-Cheks. Patient can resume home medication upon discharge. Recommend follow-up with PCP for further evaluation and management to optimize glucose control upon discharge. Nonobstructing renal calculi, incidental The CT chest abdomen pelvis completed on admission showed nonobstructing bilateral renal calculi. The largest was noted to be on the left side of 7 mm and the largest on the right side was 6 mm. Imaging was negative for hydronephrosis. Patient did not complain of any pain typical of this issue during hospitalization. Hyperlipidemia: -Continued home atorvastatin 10 mg Hypokalemia, chronic Potassium chloride 20 mEq daily Home regimen, given potassium chloride 25 mEq daily while inpatient Vital Signs/Physical Exam: Temp Pulse Resp BP Pulse Ox 98.3 F 72 14 105/54 L 95 06/08/25 11:50 06/08/25 11:50 06/08/25 11:50 06/08/25 12:55 06/08/25 11:50 General: Alert, Oriented x3, Cooperative HEENT: Atraumatic, Normocephalic, Mucous membr. moist/pink Neck: Supple, 2+ carotid pulse no bruit, JVD not distended, No Thyromegaly Respiratory: Clear to auscultation bilaterally, Normal air movement Cardiovascular: No edema, Normal pulses, Irregular heart rate/rhythm Capillary refill: Brisk Gastrointestinal: Normal bowel sounds, Hypoactive, Non-distended Musculoskeletal: No clubbing, No swelling, No contractures, No erythema Integumentary: No rashes, No breakdown, No significant lesion, No tenderness/swelling Neurological: Normal speech, Normal strength at 5/5 x4 extr, Normal tone, Sensation intact, Cranial nerves 3-12 intact, Normal affect External genitalia: Deferred Rectal: Deferred Laboratory Data at Discharge: WBC 6.80 thou/uL (4.3-10.9) 06/07/25 05:50 Hgb 11.9 g/dL (13.6-17.9) L 06/07/25 05:50 Hct 34.3 % (39.6-49.0) L 06/07/25 05:50 Plt Count 73 thou/uL (152-406) L 06/07/25 05:50 PT 19.2 SECONDS (10-13.0) H 06/07/25 05:50 INR 1.73 06/07/25 05:50 Sodium 137 mEq/L (136-145) 06/08/25 05:59 Potassium 3.6 mEq/L (3.5-5.1) 06/08/25 05:59 BUN 11 mg/dL (7-18) 06/08/25 05:59 Creatinine 0.75 mg/dL (0.70-1.30) 06/08/25 05:59 Glucose 199 mg/dL (74-106) H 06/08/25 05:59 Phosphorus 3.9 mg/dL (2.5-4.9) 06/05/25 05:12 Magnesium 1.9 mg/dL (1.6-2.4) 06/07/25 05:50 Total Bilirubin 1.9 mg/dL (0.2-1.0) H 06/07/25 05:50 AST 54 U/L (15-37) H 06/07/25 05:50 ALT 72 U/L (16-61) H 06/07/25 05:50 Alkaline Phosphatase 102 U/L (45-117) 06/07/25 05:50 Lipase 53 U/L (13-75) 06/04/25 10:17 Home Medications: Atorvastatin Calcium [Lipitor*] 10 mg PO BEDTIME 04/15/25 Furosemide 1 tab PO DAILY 04/15/25 Glimepiride 1 tab PO DAILY 04/15/25 Potassium Chloride 20 meq PO DAILY 04/15/25 Spironolactone 1 tab PO DAILY 04/15/25 glyBURIDE [Glyburide] 1 tab PO DAILY 04/15/25 lisinopriL [Lisinopril] 1 tab PO DAILY 04/15/25 Amox/Clavulanate [Augmentin 875-125 Tab] 875 mg PO BID 5 Days #10 tab 06/08/25 Lactulose [Cephulac*] 30 ml PO TID 30 Days #1800 ml 06/08/25 Metoprolol Tartrate [Lopressor*] 25 mg PO BID #180 tab 06/08/25 methocarbamoL [Robaxin*] 750 mg PO TID 30 Days #90 tab 06/08/25 New Medications: Amox/Clavulanate [Augmentin 875-125 Tab] 875 mg PO BID 5 Days #10 tab Lactulose [Cephulac*] 30 ml PO TID 30 Days #1800 ml Metoprolol Tartrate [Lopressor*] 25 mg PO BID #180 tab methocarbamoL [Robaxin*] 750 mg PO TID 30 Days #90 tab Physician Discharge Instructions: PROBLEM: Hepatic Encephalopathy GOAL: Clear understanding of disease process and how to adjust medications to prevent future rehospitalizations INSTRUCTIONS: 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
--- NOTE | 2025-06-08 16:18 | P.PN ---
Date of Service: 06/08/25 Subjective Primary Care Provider: Darcy Nevarez NP Chief Complaint: Hepatic encephalopathy, rib fractures, a flutter Subjective: Improving Assessed patient sitting up in bed on room air in no apparent distress. Patient endorses feeling fine. However, he is concerned that the nurses concern about his recent bladder scan. He states that he is no longer feeling pain initiating urination, but he does still have some pain during urination that is improved over previous day. He has not had any urethral bleeding until the afternoon 06/08 when scant blood noted in brief. Reviewed risks and benefits of staying in the hospital overnight for continued monitoring versus returning home. Patient agreeable to stay and reeval for discharge in the morning. Review of Systems 10-point ROS is otherwise unremarkable Physical Examination - Vital Signs Temperature: 98.3 F Blood Pressure: 90/55 Pulse: 72, atrial fibrillation Respirations: 14 Pulse Ox (%): 95 - Physical Exam General: Oriented x3, slow responses, but appropriate HEENT: Atraumatic, Normocephalic, Mucous membr. moist/pink Neck: Supple, 2+ carotid pulse no bruit, JVD not distended, No Thyromegaly Respiratory: Clear to auscultation bilaterally, Normal air movement Cardiovascular: No edema, Normal pulses, Irregular heart rate/rhythm Capillary refill: Brisk Gastrointestinal: Normal bowel sounds, Soft and benign, Non-distended Musculoskeletal: No clubbing, No swelling, No contractures Integumentary: No rashes, No breakdown, No significant lesion Neurological: Normal tone, Sensation intact, Abnormal speech (Difficult understand), Abnormal strength (BUE, BLE not assessed), Abnormal affect (Flat) Urinary: S/p catheter removal, urethral opening erythema mild External genitalia: Deferred Rectal: Deferred - Studies Laboratory Data (last 24 hrs) 06/06/25 WBC 6.8 Hgb 11.9 L Hct 34.3 L Plt Count 73 L PT 19.2 INR 1.73 Sodium 135 Potassium 3.7 BUN 16 Creatinine 0.98 Glucose 256 Magnesium 1.9 Total Bilirubin 1.9 AST 54 ALT 72 Alkaline Phosphatase 102 Medications List Reviewed: Yes Assessment And Plan - Assessment 59-year-old male with history of decompensated alcoholic cirrhosis, atrial fibrillation, uncertain anticoagulation status, heart failure with reduced ejection fraction, pancreatitis, DM2 present was admitted for acute hepatic encephalopathy. He arrived via EMS and appeared uncomfortable with a distended abdomen. His initial workup included laboratory testing, blood cultures, imaging and Payne insertion. He was given 1 g Rocephin IV in the ED for SBP prophylactics and pantoprazole IV 40 mg. Additionally, he received a banana bag with thiamine and folic acid. - Plan Urinary retention Hematuria urinary Tract Infection: UTI Payne was inserted in the ED while he was in an encephalopathic state. Upon attempt to remove the Payne catheter on 06/07 patient was noted to have bleeding from the urethra. The bleeding continued to be small but active. Until recently he failed a PVR 7 hours after Payne removal. Bladder scan showed 420 cc postvoid residual. The patient was discussed with urologist who recommended placing a coud cath 20 [place] to a Payne to allow for initial decompression and irrigating with 60 cc catheter tip syringe with 500 cc of normal saline to remove clot in the bladder so prevents future clogging. Acutely catheter was not available, however, urology plan otherwise followed. Payne catheter was removed on day of discharge 06/08 without bleeding. Patient was able to void post removal. A follow-up urinalysis was collected due to patient's discomfort and Payne catheter complications requiring reinsertion. This sample from the new catheter was positive for leukocytes. Patient was started on ceftriaxone 2 g IV daily. He received 2 doses of this and will continue on Augmentin twice d aily upon discharge. After void trial bladder scan revealed greater than 999 mL. Patient denied urgency to urinate, bladder nontender on exam. Discussed history of paracentesis, but has not had 1 in quite a while. Recommended abdominal ultrasound to assess for ascites and continued monitoring to ensure improvement in penile bleeding overnight. Then we can reevaluate appropriateness for disc harge in the morning. Patient agreeable. Will order one-time dose of tamsulosin 0.4 mg for tonight before bed to help with urinary retention concerns. Alcoholic liver cirrhosis, chronic stable Hepatic encephalopathy, resolved Splenomegaly Liver cancer Patient underwent a CT of the head with no acute pathology explaining acute encephalopathy. Urine drug screen, ethanol level was ordered and nonconcerning. UA negative for infection on admission. An ammonia level was drawn and noted to be 99. Blood cultures were drawn with no growth during hospital stay. SBP was noted to be a low concern due to no ascites observed on CT, no infectious signs and symptoms, and thus far negative blood cultures. Patient was restarted on lactulose 30 mg 3 times daily to induce bowel movement. He also required a bisacodyl suppository, after which he did produce a large bowel movement. He was restarted on his home medication regimen for alcoholic liver disease including furosemide 80 mg daily and spironolactone 25 mg daily. Hospitalization is likely related to lack of understanding about lactulose medication regimen. Provided teaching to the patient regarding having a sc heduled lactulose dose, but adjusting that dose up and down in response to the number of bowel movements that he is having daily. It is evident the patient is trying to comprehended and create a plan for himself to follow at home, but more teaching is likely necessary. ground level fall Rib fractures Acute pain, improved It was discovered the patient suffered a ground-level fall at home prior to coming in. There is also evidence he had a previous fall on the left side. Initial x-ray showed no acute intrathoracic abnormalities. However, follow-up chest CT abdomen pelvis showed left lateral fractures in ribs 5 through 7 with evidence of fractures on the opposite side that were not healing status. Although patient's history is questionable, he denies any dizziness, syncope, presyncopal event preceding the fall. During exam patient stated that pain was controlled with ibuprofen as needed, Robaxin-750 milligrams 3 times daily, and [place] 5 mg every 4 hours as needed for pain. Initially he required IV morphine, however that was discontinued and pain was still well-controlled. Atrial flutter, resolved History of A-fib, chronic stable On arrival in the ED EKG was collected showing that the patient is in a flutter. He has a history of chronic A-fib that is stable. His troponin was 10.3. This was trended and remained a flat trend. BNP was 76 on arrival. Digoxin level is low at 0.6. Home medications include carvedilol 6.25 mg daily, furosemide 80 mg daily, spironolactone 25 mg daily, lisinopril 5 mg daily. Home medications were resumed as appropriate. Cardiology was consulted and recommended discontinuing Coreg and lieu of metoprolol 25 mg twice daily. Changes made and patient tolerated medication well. Chronic Normocytic Anemia: Chronic/stable This is not an active problem during the hospitalization. Patient remained with hemoglobin between 12 and 13, in line with his chronic trend. Hyponatremia, mild, resolved Patient was mildly hyponatremic on arrival. This resolved with IV fluid rehydration and remained within normal limits for the remainder of the h ospitalization. [id number] diabetes mellitus type 2: Patient has chronic type 2 diabetes. His home medications include glimepiride, glipizidethese medications were held while he was inpatient. Alternatively, he was maintained with sliding scale insulin and ACHS Accu-Cheks. Patient can resume home medication upon discharge. Recommend follow-up with PCP for further evaluation and management to optimize glucose control upon discharge. Nonobstructing renal calculi, incidental The CT chest abdomen pelvis completed on admission showed nonobstructing bilateral renal calculi. The largest was noted to be on the left side of 7 mm and the largest on the right side was 6 mm. Imaging was negative for hydronephrosis. Patient did not complain of any pain typical of this issue during hospitalization. Hyperlipidemia: -Continued home atorvastatin 10 mg Hypokalemia, chronic Potassium chloride 20 mEq daily Home regimen, given potassium chloride 25 mEq daily while inpatient Dispo: Resolution of urinary retention and hematuria Anticipate home Discharge Plan: Home Plan to discharge in: 24 Hours - Code Status/Comfort Care Code Status Assessed: No Critical Care: No
[2025-06-08] MEDS: TAMSULOSIN 0.4 MG SR CAP PO ONE (20:28)
[2025-06-09] MEDS: MELATONIN 5 MG TABLET PO PRN (01:30)
[2025-06-09 06:41] LABS: Anion Gap 7.7 mEq/L (5.0-15.0); BUN Blood Urea Nitrogen 19.0 mg/dL (7-18); Glucose Level 288.0 mg/dL (74-106); Potassium 3.7 mEq/L (3.5-5.1)
[2025-06-09] MEDS: POTASSIUM CL SA 10 MEQ TAB PO ONE (07:51)
--- NOTE | 2025-06-09 07:52 | P.DS ---
Admission Date: 06/04/25 Discharge Date: 06/09/25 Primary Care Provider: Darcy Nevarez NP Disposition: ROUTINE DISCHARGE Discharge Condition: GOOD Reason for Admission: Hepatic encephalopathy, rib fractures, a flutter Consultations: Cardiology Procedures: None Brief History of Present Illness: 59-year-old male with history of decompensated alcoholic cirrhosis, atrial fibrillation, uncertain anticoagulation status, heart failure with reduced ejection fraction, pancreatitis, DM2 present was admitted for acute hepatic encephalopathy. He arrived via EMS and appeared uncomfortable with a distended abdomen. His initial workup included laboratory testing, blood cultures, imaging and Payne insertion. He was given 1 g Rocephin IV in the ED for SBP p rophylactics and pantoprazole IV 40 mg. Additionally, he received a banana bag with thiamine and folic acid. Hospital Course: Urinary retention Hematuria urinary Tract Infection: UTI Payne was inserted in the ED while he was in an encephalopathic state. Upon attempt to remove the Payne catheter on 06/07 patient was noted to have bleeding from the urethra. The bleeding continued to be small but active. Until recently he failed a PVR 7 hours after Payne removal. Bladder scan showed 420 cc postvoid residual. The patient was discussed with urologist who recommended placing a coud cath 20 Indonesian to a Payne to allow for initial decompression and irrigating with 60 cc catheter tip syringe with 500 cc of normal saline to remove clot in the bladder so prevents future clogging. Acutely catheter was not available, however, urology plan otherwise followed. Payne catheter was removed on day of discharge 06/08 without bleeding. Patient was able to void post removal. A follow-up urinalysis was collected due to patient's discomfort and Payne catheter complications requiring reinsertion. This sample from the new catheter was positive for leukocytes. Patient was started on ceftriaxone 2 g IV daily. He will continue on Augmentin twice daily upon discharge. On void trial 06/08 patient bladder scan greater than 999 mL. Patient denied urgency to urinate, bladder nontender on exam. Discussed history of paracentesis due to concern for ascites interference, but has not had one in quite a while. patient given a one-time dose of tamsulosin 0.4 mg for tonight before bed to help with urinary retention concerns. Initially an abdominal ultrasound was ordered to assess for ascites presents interfering with bladder scan results. However, patient has voided spontaneously overnight without issue and endorses readiness to return home. Alcoholic liver cirrhosis, chronic stable Hepatic encephalopathy, resolved Splenomegaly Liver cancer Patient underwent a CT of the head with no acute pathology explaining acute encephalopathy. Urine drug screen, ethanol level was ordered and nonconcerning. UA negative for infection on admission. An ammonia level was drawn and noted to be 99. Blood cultures were drawn with no growth during hospital stay. SBP was noted to be a low concern due to no ascites observed on CT, no infectious signs and symptoms, and thus far negative blood cultures. Patient was restarted on lactulose 30 mg 3 times daily to induce bowel movement. He also required a bisacodyl suppository, after which he did produce a large bowel movement. He was restarted on his home medication regimen for alcoholic liver disease including furosemide 80 mg daily and spironolactone 25 mg daily. Hospitalization is likely related to lack of understanding about lactulose medication regimen. Provided teaching to the patient regarding having a scheduled lactulose dose, but adjusting that dose up and down in response to the number of bowel movements that he is having daily. It is evident the patient is trying to comprehended and create a plan for himself to follow at home, but more teaching is likely necessary. ground level fall Rib fractures Acute pain, improved It was discovered the patient suffered a ground-level fall at home prior to coming in. There is also evidence he had a previous fall on the left side. Initial x-ray showed no acute intrathoracic abnormalities. However, follow-up chest CT abdomen pelvis showed left lateral fractures in ribs 5 through 7 with evidence of fractures on the opposite side that were not healing status. Although patient's history is questionable, he denies any dizziness, syncope, presyncopal event preceding the fall. During exam patient stated that pain was controlled with ibuprofen as needed, Robaxin-750 milligrams 3 times daily, and Catano 5 mg every 4 hours as needed for pain. Initially he required IV morphine, however that was discontinued and pain was still well-controlled. Atrial flutter, resolved History of A-fib, chronic stable On arrival in the ED EKG was collected showing that the patient is in a flutter. He has a history of chronic A-fib that is stable. His troponin was 10.3. This was trended and remained a flat trend. BNP was 76 on arrival. Digoxin level is low at 0.6. Home medications include carvedilol 6.25 mg daily, furosemide 80 mg daily, spironolactone 25 mg daily, lisinopril 5 mg daily. Home medications were resumed as appropriate. Cardiology was consulted and recommended discontinuing Coreg and lieu of metoprolol 25 mg twice daily. Changes made and patient tolerated medication well. Chronic Normocytic Anemia: Chronic/stable This is not an active problem during the hospitalization. Patient remained with hemoglobin between 12 and 13, in line with his chronic trend. Hyponatremia, mild, resolved Patient was mildly hyponatremic on arrival. This resolved with IV fluid rehydration and remained within normal limits for the remainder of the hospitalization. [id number] diabetes mellitus type 2: Patient has chronic type 2 diabetes. His home medications include glimepiride, glipizidethese medications were held while he was inpatient. Alternatively, he was maintained with sliding scale insulin and ACHS Accu-Cheks. Patient can resume home medication upon discharge. Recommend follow-up with PCP for further evaluation and management to optimize glucose control upon discharge. Nonobstructing renal calculi, incidental The CT chest abdomen pelvis completed on admission showed nonobstructing bilateral renal calculi. The largest was noted to be on the left side of 7 mm and the largest on the right side was 6 mm. Imaging was negative for hydronephrosis. Patient did not complain of any pain typical of this issue during hospitalization. Hyperlipidemia: -Continued home atorvastatin 10 mg Hypokalemia, chronic Potassium chloride 20 mEq daily Home regimen, given potassium chloride 25 mEq daily while inpatient Dispo: Resolution of urinary retention and hematuria Anticipate home Vital Signs/Physical Exam: Temp Pulse Resp BP Pulse Ox 97.9 F 71 16 93/57 L 96 06/09/25 04:00 06/09/25 04:00 06/09/25 04:00 06/09/25 04:00 06/09/25 04:00 Laboratory Data at Discharge: WBC 6.80 thou/uL (4.3-10.9) 06/07/25 05:50 Hgb 11.9 g/dL (13.6-17.9) L 06/07/25 05:50 Hct 34.3 % (39.6-49.0) L 06/07/25 05:50 Plt Count 73 thou/uL (152-406) L 06/07/25 05:50 PT 19.2 SECONDS (10-13.0) H 06/07/25 05:50 INR 1.73 06/07/25 05:50 Sodium 133 mEq/L (136-145) L 06/09/25 06:06 Potassium 3.7 mEq/L (3.5-5.1) 06/09/25 06:06 BUN 19 mg/dL (7-18) H 06/09/25 06:06 Creatinine 1.14 mg/dL (0.70-1.30) 06/09/25 06:06 Glucose 288 mg/dL (74-106) H 06/09/25 06:06 Phosphorus 3.9 mg/dL (2.5-4.9) 06/05/25 05:12 Magnesium 1.9 mg/dL (1.6-2.4) 06/07/25 05:50 Total Bilirubin 1.9 mg/dL (0.2-1.0) H 06/07/25 05:50 AST 54 U/L (15-37) H 06/07/25 05:50 ALT 72 U/L (16-61) H 06/07/25 05:50 Alkaline Phosphatase 102 U/L (45-117) 06/07/25 05:50 Lipase 53 U/L (13-75) 06/04/25 10:17 Home Medications: Atorvastatin Calcium [Lipitor*] 10 mg PO BEDTIME 04/15/25 Furosemide 1 tab PO DAILY 04/15/25 Glimepiride 1 tab PO DAILY 04/15/25 Potassium Chloride 20 meq PO DAILY 04/15/25 Spironolactone 1 tab PO DAILY 04/15/25 glyBURIDE [Glyburide] 1 tab PO DAILY 04/15/25 lisinopriL [Lisinopril] 1 tab PO DAILY 04/15/25 Amox/Clavulanate [Augmentin 875-125 Tab] 875 mg PO BID 5 Days #10 tab 06/08/25 Lactulose [Cephulac*] 30 ml PO TID 30 Days #1800 ml 06/08/25 Metoprolol Tartrate [Lopressor*] 25 mg PO BID #180 tab 06/08/25 methocarbamoL [Robaxin*] 750 mg PO TID 30 Days #90 tab 09/27/25 New Medications: Amox/Clavulanate [Augmentin 875-125 Tab] 875 mg PO BID 5 Days #10 tab Lactulose [Cephulac*] 30 ml PO TID 30 Days #1800 ml Metoprolol Tartrate [Lopressor*] 25 mg PO BID #180 tab methocarbamoL [Robaxin*] 750 mg PO TID 30 Days #90 tab Physician Discharge Instructions: PROBLEM: Hepatic Encephalopathy GOAL: Clear understanding of disease process and how to adjust medications to prevent future rehospitalizations INSTRUCTIONS: Follow-up with your officer lieutenant Follow-up your PCP Follow-up with your professor in family studies Diet: Heart healthy Activity: Resume normal activities as tolerated Diet: AHA Activity: Ad marlen Followup: NONE,NONE [Primary Care Provider] - Ankit Castaneda MD [ACTIVE - CAN ADMIT] - 1-2 Weeks
[2025-06-09 08:34] VITALS: BP 101/55; TEMP 97.6
== END 2025-06-09 10:30 | disposition home or self-care (01) | DRG 442 ==
LOC: ER 09:15 → ERHOLD 14:01 → 3RD-ICU 15:46 → 2ND 06-06 10:35
PROVIDERS: ADMIT Hospitalist; ATTEND Hospitalist
DX: K76.82 Hepatic encephalopathy (principal); C22.9 Malignant neoplasm of liver, not specified as primary or secondary; E87.1 Hypo-osmolality and hyponatremia; S22.42XA Multiple fractures of ribs, left side, initial encounter for closed fracture; I13.0 Hypertensive heart and chronic kidney disease with heart failure and stage 1 through stage 4 chronic kidney disease, or unspecified chronic kidney disease; I48.92 Unspecified atrial flutter; I50.22 Chronic systolic (congestive) heart failure; N39.0 Urinary tract infection, site not specified; I48.20 Chronic atrial fibrillation, unspecified; K70.30 Alcoholic cirrhosis of liver without ascites; N18.9 Chronic kidney disease, unspecified; E11.22 Type 2 diabetes mellitus with diabetic chronic kidney disease; D63.1 Anemia in chronic kidney disease; E66.9 Obesity, unspecified; E78.5 Hyperlipidemia, unspecified; E87.6 Hypokalemia; N20.0 Calculus of kidney; F17.220 Nicotine dependence, chewing tobacco, uncomplicated; R33.9 Retention of urine, unspecified; R16.1 Splenomegaly, not elsewhere classified; Z79.4 Long term (current) use of insulin; Z68.28 Body mass index [BMI] 28.0-28.9, adult; Z85.05 Personal history of malignant neoplasm of liver; Z90.49 Acquired absence of other specified parts of digestive tract; Z79.02 Long term (current) use of antithrombotics/antiplatelets; Z79.84 Long term (current) use of oral hypoglycemic drugs; Z79.899 Other long term (current) drug therapy; Z91.148 Patient's other noncompliance with medication regimen for other reason
CPT/HCPCS: 36415; 51702; 70450; 71045; 71250; 72125; 74176; 80048; 80076; 80162; 81001; 82077; 82140; 82947; 83605; 83690; 83735; 83880; 83970; 84100; 84443; 84484; 85025; 85610; 87040; 87086; 87088; 93005; 96365; 96366; 96367; 96375; 99285; J0696; J1160; J1650; J1815; J2003; J2270; J2470; J3411; J7030